=== PATIENT | male | born 1945 | race Caucasian/White ===

== ENCOUNTER 2016-11-22 15:26 | Observation (INO) | payer MEDICARE ==
[2016-11-22] MEDS ORDERED: Aspirin Low Dose CHEW TAB* 81 MG PO ONE (15:41)
[2016-11-22] MEDS ORDERED: Nitroglycerin TAB 0.4 MG* 0.4 MG TAB SL ONE (15:55)
[2016-11-22 16:33] LABS: Hematocrit 43 % (42-52); Hemoglobin 14.7 g/dl (14.0-18.0); Mean Corpuscular HGB Conc 34 g/dl (31-36); Mean Corpuscular Hemoglobin 26 pg (27-31); Mean Corpuscular Volume 76 fL (80-94); Mean Platelet Volume 8 um3 (7.4-10.4); Red Blood Count 5.67 10^6/ul (4.0-5.4); Red Cell Distribution Width 15 % (10.5-15); White Blood Count 10.4 10^3/ul (3.5-10.8)
--- NOTE | 2016-11-22 16:33 | RAD ---
HISTORY: Chest pain COMPARISONS: July 24, 2016 VIEWS:1: Single frontal portable view of the chest at 4:24 PM FINDINGS: LINES AND TUBES: A left-sided pacemaker is noted CARDIOMEDIASTINAL SILHOUETTE: The cardiomediastinal silhouette is normal for portable technique. PLEURA: The costophrenic angles are sharp. No pleural abnormalities are noted. LUNG PARENCHYMA: The lungs are clear. ABDOMEN: The upper abdomen is clear. There is no subphrenic gas. BONES AND SOFT TISSUES: No bone or soft tissue abnormalities are noted. IMPRESSION: NO ACTIVE CARDIOPULMONARY DISEASE.
[2016-11-22 16:48] LABS: Troponin I 0.01 ng/mL (<0.04)
[2016-11-22] MEDS ORDERED: NS 0.9% 1000 ML* 500 ML IV ONE (17:04)
[2016-11-22 17:18] LABS: Albumin 3.7 g/dL (3.2-5.2); BUN/Creatinine Ratio 23.9 (8-20); Calcium 10.3 mg/dL (8.6-10.3); EGFR African American 81.8 (>60); EGFR Non-African American 63.6 (>60); Globulin 3.6 g/dL (2-4); Potassium 4.1 mmol/L (3.5-5.0); Total Bilirubin 0.7 mg/dL (0.2-1.0); Total Protein 7.3 g/dL (6.4-8.9)
[2016-11-22] MEDS ORDERED: Albuterol/Ipratropium NEB.SOL* Albuterol 2.5 MG/Ipratropium 0.5 MG 3 ML INH PRN (18:50)
[2016-11-22] MEDS ORDERED: Acetaminophen TAB* 325 MG PO PRN (18:51)
[2016-11-22] MEDS ORDERED: Ondansetron INJ* 2 MG/ML VIAL IV PRN (18:51)
--- NOTE | 2016-11-22 21:37 | HP ---
ADMISSION HISTORY AND PHYSICAL: DATE OF ADMISSION: 11/22/16 PRIMARY CARE PROVIDER: Dr. Aakash Alonso. COMMERCIAL FLOOR COVERING INSTALLER: Dr. Stone. HEALTHCARE PROXY: and daughter. CODE STATUS: Full. SOURCE OF HISTORY: History obtained from interview of the patient, review of past medical records. RELIABILITY: The patient is poor to moderate. Records are excellent. CHIEF COMPLAINT: Chest discomfort. HISTORY OF PRESENT ILLNESS: This is a 71-year-old man with a past medical history of CAD, status post PCI with stent to the proximal LAD in 2010 and in- stent restenosis in 2013, who had been in his usual state of health until today , it start around 1 p.m., started to feel a burning like pressure in his chest while at home. Laid down and put on oxygen; however, was no help. So, he decided to proceed to the emergency room. He did not take sublingual nitro or aspirin. He notes the pain lasted about 2-1/2 hours and was resolved prior to presenting to the emergency room. The pain was nonradiating, described as a burning and pressure without associated shortness of breath, lightheadedness, palpitations. He notes that going up and down the stairs and walking to the car did not exacerbate the discomfort. He did notice that he was nauseous and vomiting one time this morning, which was atypical for him. He denies any recent fevers or chills, but does endorse loose stools for the last 3 days as well as a recent cough with increased phlegm production which has began to turn yellow from clear. He has not increased his use of home inhalers, although does feel like he is wheezing. In the emergency room, he was noted to be chest pain free; however, given his significant history of CAD, hospitalist service was consulted for admission. PAST MEDICAL HISTORY: Paroxysmal atrial fibrillation, diastolic heart failure, iron deficiency anemia, CAD, status post stents to the proximal LAD in 2010, in - stent restenosis in 2013, tachy-georgina syndrome status post permanent pacemaker , hypertension, COPD, history of GI bleed, BPH, type 2 diabetes, obstructive sleep apnea, noncompliant with CPAP, sleeps with 2 L of oxygen at night. MEDICATIONS: Reviewed from __[facility] records___. The patient does not have a current list, so I am asking his to bring it in, includes: 1. Atorvastatin 60 mg daily. 2. Ellipta 62.5 mcg daily. 3. Diltiazem 240 mg ER daily. 4. Valsartan 160 mg daily. 5. Spiriva 2 puffs daily. 6. Symbicort 80/4.5 mcg 2 puffs daily. 7. Eplerenone 25 mg daily. 8. Nitroglycerin patch 2 mg patch every day. 9. Centrum Silver 1 tab daily. 10. Ferrous sulfate 325 mg daily. 11. Magnesium oxide 400 mg daily. 12. Finasteride 5 mg daily. 13. Aspirin 81 mg daily. 14. Calcium 600/800 mg daily. ALLERGIES: To BUPROPION, MORPHINE and PENICILLIN. FAMILY HISTORY: Father from [place] at 65. Mother with lung cancer. SOCIAL HISTORY: Extensive tobacco 1.5 packs per day for 40 years, quit in 2007 , rare alcohol, no illicits. REVIEW OF SYSTEMS: As per HPI, otherwise all other systems negative. PHYSICAL EXAMINATION GENERAL: Older than stated age, lying flat and bed, interactive, pleasant, in no apparent distress, talks in complete sentences. VITAL SIGNS: When seen by this author, 115/74, heart rate 65, respiratory rate of 16, 93% on room air, T-max 97.8. HEENT: Oropharynx is clear. He has moist mucous membranes. Sclerae anicteric. NECK: He has a non-elevated JVD. No cervical or supraclavicular lymphadenopathy. No goiter. No carotid bruits. LUNGS: He has bibasilar rales with few expiratory wheezes in all lung hubbard. HEART: He has a regular rate and rhythm. Distant heart sounds. Difficult to appreciate any murmurs. ABDOMEN: Soft, nontender, nondistended. EXTREMITIES: Warm, well-perfused with trace lower extremity edema. Less than 2 - second cap refill. Good skin turgor. NEURO: A and O x3. CN II through XII intact. PSYCH: No apparent agitation, anxiety, or depression. DIAGNOSTIC STUDIES/LAB DATA: Labs reviewed, notable for white count 10.4, hemoglobin 14.7, platelets 238, BUN 27, creatinine 1.13, glucose 141, lactic acid 1.5. Troponin I 0.01. BNP 59. Data reviewed. EKG: Normal sinus rhythm, borderline right axis, right bundle branch block. No ST or T wave changes. Chest x-ray. Impression: No active cardiopulmonary disease. ASSESSMENT AND PLAN: This is a 71-year-old man, past medical history of coronary artery disease, diastolic heart failure, not on diuretics, tachy-georgina syndrome, on permanent pacemaker, hypertension, chronic obstructive pulmonary disease, diabetes, obstructive sleep apnea, noncompliant with CPAP, presenting to the hospital with 2 hours of burning chest pressure associated with recent cough, increased phlegm production and change in phlegm color as well as one episode of vomiting this morning, all resolved prior to presentation. 1. Chest pain. Atypical in nature given lack of exacerbation with exertion. Does have significant cardiac history. We will admit to telemetry, trend serial troponins. Repeat EKG with third troponin. Continue aspirin or other cardiac medications. I think this is likely in the setting of a chronic obstructive pulmonary exacerbation as indicated by increased wheeze, increased phlegm and change in color of his phlegm. I will leave him n.p.o. at midnight should any other troponins or EKGs be remarkable and would he therefore benefit from a stress test in the morning. 2. Chronic obstructive pulmonary disease, in acute exacerbation. Start methylprednisolone IV 40 mg, q.12 hours. Continue Dulera as well as DuoNebs p.r.n. Tiotropium and montelukast. Monitor for resolution on 2 L of oxygen at night as he takes at home. 3. Diabetes. No known hemoglobin A1c. Not on any medications. Added onto the ED labs. 4. High blood pressure. Continue eplerenone and valsartan. 5. Benign prostatic hyperplasia. Continue finasteride. 6. Obstructive sleep apnea. Noncompliant with CPAP. Not instituted here. 7. DVT prophylaxis. Heparin subcu. CC: Dr. Aakash Alonso; Dr. Stone * [id number]/[facility] #: [id number] [facility]
[2016-11-22] MEDS: Ferrous Sulfate TAB* 325 MG PO SCH (22:22)
[2016-11-22] MEDS: Heparin VIAL(*) 5000 UNITS/ML VIAL (FIVE THOUSAND) SUBCUT SCH (22:22)
[2016-11-22] MEDS: methylPREDNISolone SOD 40 MG* 1 ML VIAL IV SCH (22:23)
--- NOTE | 2016-11-22 23:15 | ED ---
Ezequiel Hewitt Michael, scribed for Billy Eduardo MD on 11/22/16 at 1616 . HPI Chest Pain - HPI Summary HPI Summary: 71 y/o male comes to the ED presenting with constant chest pain that started at 1300 after walking up the stairs. The pt reports that he could not sleep due to the pain, and by 1400 the pain radiated to his LUE. Since arriving to the ED, the chest pain has spontaneously alleviated, but the LUE pain is still present. He also c/o SOB and a productive cough with yellow sputum. The PMHx is significant for COPD and UT 2-3 years ago with resulting in 2 stents and pacemaker. - History of Current Complaint Chief Complaint: EDChestPainROMI Time Seen by Provider: 11/22/16 15:41 Hx Obtained From: Patient, Medical Records Onset/Duration: Started Hours Ago Timing: Constant Initial Severity: Moderate Current Severity: Mild Pain Intensity: 5 Pain Scale Used: 0-10 Numeric Chest Pain Location: Discrete at: - sub sternal Chest Pain Radiates: Yes Chest Pain Radiates To:: Arm - LUE Alleviating Factor(s): Spontaneous Resolution Associated Signs and Symptoms: Positive: Chest Pain, Shortness of Breath, Productive Cough, Other: - LUE pain. - Allergy/Home Medications Allergies/Adverse Reactions: Allergies Allergy/AdvReac Type Severity Reaction Status Date / Time Bupropion [From Wellbutrin] Allergy Intermediate Dizziness Verified 03/27/15 15: 59 Morphine Allergy Intermediate See Comment Verified 03/27/15 15:59 Penicillins Allergy Intermediate Swelling Verified 03/27/15 15:59 Home Medications: Home Medications Atorvastatin* [Lipitor*] 20 mg PO DAILY 11/22/16 [History Confirmed 11/22/16] Budesonide/Formote 80/4.5(NF) [Symbicort 80/4.5 (NF)] 2 puff INH BID 11/22/16 [ History Confirmed 11/22/16] Diltiazem HCl Extended Release [Diltiazem HCl ER] 120 mg PO BID 11/22/16 [ History Confirmed 11/22/16] Epleronone (NF) [Inspra (NF)] 25 mg PO DAILY 11/22/16 [History Confirmed ] Finasteride TAB* [Proscar TAB*] 5 mg PO DAILY 11/22/16 [History Confirmed ] Nitroglycerin 0.2 MG/HR PATCH* [Nitroglycerin 5 MG PATCH*] 1 patch TRANSDERM DAILY 11/22/16 [History Confirmed 11/22/16] Valsartan TAB* [Diovan TAB*] 160 mg PO DAILY 11/22/16 [History Confirmed ] PMH/Surg Hx/FS Hx/Imm Hx Endocrine/Hematology History: Reports: Hx Anticoagulant Therapy, Hx Diabetes, Hx Anemia Cardiovascular History: Reports: Hx Angina, Hx Angioplasty, Hx Coronary Artery Disease, Hx Hypercholesterolemia, Hx Hypertension, Hx Myocardial Infarction - PT STATES, Hx Pacemaker/ICD - 5/15, Other Cardiovascular Problems/Disorders - cardiac stent 2012 Denies: Hx Congestive Heart Failure, Hx Deep Vein Thrombosis Respiratory History: Reports: Hx Chronic Obstructive Pulmonary Disease (COPD), Other Respiratory Problems/Disorders - 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 Denies: Hx Asthma GI History: Reports: Hx Diverticulosis, Hx Gastroesophageal Reflux Disease, Hx Gastrointestinal Bleed, Hx Obstructive Bowel - twisted bowel that required surgery 1996 History: Reports: Hx Benign Prostatic Hyperplasia Sensory History: Reports: Hx Contacts or Glasses Opthamlomology History: Reports: Hx Contacts or Glasses Neurological History: Reports: Hx Headaches Psychiatric History: Reports: Hx Anxiety - Cancer History Cancer Type, Location and Year: "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 Left lung removal of mass. 1 cardiac stent in 2010 Hx Anesthesia Reactions: No Infectious Disease History: No Infectious Disease History: Denies: Traveled Outside the [place] in Last 30 Days - Family History Known Family History: Negative: Cardiac Disease - Social History Occupation: Retired Lives: With Family Alcohol Use: None Substance Use Type: Reports: None Hx Tobacco Use: Yes Smoking Status (MU): Former Smoker Review of Systems Negative: Fever, Chills Negative: Erythema Negative: Sore Throat Positive: Chest Pain Positive: Shortness Of Breath, Cough Negative: Abdominal Pain, Vomiting, Nausea Negative: dysuria, hematuria Positive: Other - LUE pain. Negative: Myalgia, Edema - bilat LE Negative: Rash Neurological: Negative - dizziness All Other Systems Reviewed And Are Negative: Yes Physical Exam - Summary Physical Exam Summary: Constitutional: Well-developed, Well-nourished, Alert. (-) Distressed Skin: Warm, Dry HENT: Normocephalic; Atraumatic Eyes: Conjunctiva normal Neck: Musculoskeletal ROM normal neck. (-) JVD, (-) Stridor, (-) Tracheal deviation Cardio: Rhythm regular, rate normal, Heart sounds normal; Intact distal pulses; The pedal pulses are 2+ and symmetric. Radial pulses are 2+ and symmetric. (-) Murmur Pulmonary/Chest wall: diminished lung sounds. faint rhonchi bilaterally. (-) Wheezes, (-) Rales Abd: Soft, (-) Tenderness, ~(-) Distension, (-) Guarding, (-) Rebound Musculoskeletal: (-) Edema Lymph: (-) Cervical adenopathy Neuro: Alert, Oriented x3 Psych: Mood and affect Normal Triage Information Reviewed: Yes Vital Signs On Initial Exam: Initial Vitals Temp Pulse Resp BP Pulse Ox 97.8 F 84 16 115/74 96 11/22/16 15:33 11/22/16 15:33 11/22/16 15:33 11/22/16 15:33 11/22/16 15:33 Vital Signs Reviewed: Yes Diagnostics - Vital Signs Vital Signs Temp Pulse Resp BP Pulse Ox 11/22/16 15:33 97.8 F 84 16 115/74 96 - Laboratory Result Diagrams: 11/22/16 16:12 11/22/16 16:12 Lab Statement: Any lab studies that have been ordered have been reviewed, and results considered in the medical decision making process. - Radiology CXR Xray Interpretation: No Acute Changes Radiology Interpretation Completed By: Radiologist - EKG EK EKG Rhythm: Sinus Rhythm - 89 bpm EKG Interpretation: RBBB. Q-waves V1 V2. No STEMI EK EKG Comparison: No Significant Change - from EKG 11/22/16 Chest Pain Course/Dx - Course Course Of Treatment: 71 y/o male comes to the ED presenting with constant chest pain. He also presents SOB and productive cough. The CXR was nml. The first and repeat EKG were significant for RBBB and Q-waves V1 and V2. Dr. Anderson ( Hospitalist)-[id number] was consulted and accepts pt as an admission. Dx with unspecified chest pain-possible angina. - Diagnoses Provider Diagnoses: Chest pain, unspecified Discharge - Discharge Plan Condition: Stable Disposition: ADMITTED TO [facility] Discharge Disposition Comment: Dr. Anderson (Hospitalist)-[id number] was consulted and accepts pt as an admission. Referrals: Aakash Alonso MD [Primary Care Provider] - The documentation as recorded by the Ezequiel russ Michael accurately reflects the service I personally performed and the decisions made by me, Billy Eduardo MD.
[2016-11-23] MEDS: Mometasone/Formoter 100/5 MDI INH SCH ×3 (02:35→19:15)
[2016-11-23] MEDS: Heparin VIAL(*) 5000 UNITS/ML VIAL (FIVE THOUSAND) SUBCUT SCH ×2 (05:39→14:07)
[2016-11-23 06:04] LABS: Hematocrit 45 % (42-52); Hemoglobin 15.4 g/dl (14.0-18.0); Mean Corpuscular HGB Conc 34 g/dl (31-36); Mean Corpuscular Hemoglobin 26 pg (27-31); Mean Corpuscular Volume 76 fL (80-94); Mean Platelet Volume 8 um3 (7.4-10.4); Red Blood Count 5.97 10^6/ul (4.0-5.4); Red Cell Distribution Width 15 % (10.5-15)
[2016-11-23 06:23] LABS: BUN/Creatinine Ratio 26.7 (8-20); Calcium 9.8 mg/dL (8.6-10.3); EGFR Non-African American 69.2 (>60); Potassium 4.6 mmol/L (3.5-5.0)
[2016-11-23] MEDS ORDERED: Aspirin EC Low Dose* 81 MG TAB.EC PO SCH (09:00)
[2016-11-23] MEDS ORDERED: Spironolactone TAB* 25 MG PO SCH (09:00)
[2016-11-23] MEDS ORDERED: Omeprazole CAP* 20 MG PO SCH (09:00)
[2016-11-23] MEDS ORDERED: Diltiazem CD CAP* 240 MG PO SCH (09:00)
[2016-11-23] MEDS ORDERED: Spiriva Inhaler DEVICE* 1 EACH DEVICE INH ONE (09:00)
[2016-11-23] MEDS ORDERED: Valsartan TAB* 160 MG PO SCH (09:00)
[2016-11-23] MEDS ORDERED: Montelukast Sodium TAB* 10 MG PO SCH (09:00)
[2016-11-23] MEDS ORDERED: Nitroglycerin 0.2 MG/HR PATCH* (5 MG) TRANSDERM SCH (09:00)
[2016-11-23] MEDS ORDERED: Finasteride TAB* 5 MG PO SCH (09:00)
[2016-11-23] MEDS ORDERED: Tiotropium CAP.INH* CAP.INH/18 MCG (USE ORDER SET !) INH SCH (09:00)
[2016-11-23] MEDS ORDERED: Atorvastatin* 20 MG TAB PO SCH (09:00)
[2016-11-23] MEDS ORDERED: Regadenoson* 0.4 MG/5 ML SYRINGE ONE (11:57)
--- NOTE | 2016-11-23 13:05 | RAD ---
HISTORY: Chest pain, shortness of breath, previous [place], cardiac catheterization, hypertension, family history of heart disease COMPARISONS: August 19, 2013 TECHNIQUE: A 1 day stress/rest myocardial perfusion study was performed, with pharmacologic stress. The stress portion was monitored by Dr. Gutierrez. Gated SPECT imaging was performed, with CT-based attenuation correction DOSE: Stress: Technetium 99m tetrofosmin, 26.23 millicuries, injected at 11:40 AM on November 23, 2016 Rest: Technetium 99m tetrofosmin, 10.91 millicuries, injected at 9:30 AM on November 23, 2016 Pharmacologic agent: Lexiscan FINDINGS: CARDIAC MONITORING: No EKG criteria of ischemia with stress. EF: 62 % TID: 1.05 MOTION: Normal motion, with normal wall thickening. PERFUSION: There is a small relatively fixed defect of the septum towards the apex, with minimal marginal reversibility which may reflect marginal ischemia. OTHER: None IMPRESSION: FIXED PERFUSION DEFECT OF THE SEPTUM TOWARDS THE APEX WITH MINIMAL MARGINAL REVERSIBILITY SUGGESTIVE OF MARGINAL ISCHEMIA. ASSESSMENT: LOW RISK. Based on imaging criteria from ACC/AHA 2002. Guideline Update for the Management of Patient's with Chronic Stable Angina, table 23. Noninvasive Risk Stratification.
[2016-11-23] MEDS: Ferrous Sulfate TAB* 325 MG PO SCH (14:02)
[2016-11-23] MEDS: methylPREDNISolone SOD 40 MG* 1 ML VIAL IV SCH (14:03)
[2016-11-23 17:19] VITALS: BP 182/71
[2016-11-23] MEDS ORDERED: Nitro Patch/OINT Remove PATCH OFF SCH (21:00)
--- NOTE | 2016-11-24 00:52 | DS ---
CC: Dr. Alonso; Dr. Stone DISCHARGE SUMMARY: DATE OF ADMISSION: 11/22/16 DATE OF DISCHARGE: 11/23/16 PRIMARY CARE PROVIDER: Dr. Alonso. DISCHARGE DIAGNOSES: 1. Chest pain. 2. Chronic obstructive pulmonary disease exacerbation. SECONDARY DIAGNOSES: 1. History of paroxysmal atrial fibrillation, not on anticoagulation due to history of GI bleed. 2. History of diastolic congestive heart failure. 3. Iron deficiency anemia. 4. Coronary artery disease, status post stenting and in-stent restenosis. 5. Tachy-georgina syndrome, status post pacemaker. 6. Hypertension. 7. Chronic obstructive pulmonary disease, on oxygen at night only. 8. History of GI bleed. 9. Benign prostatic hypertrophy. 10. Diabetes type 2. 11. Obstructive sleep apnea, not tolerating CPAP. MEDICATIONS AT DISCHARGE: Include: 1. Aspirin 81 mg daily. 2. Lipitor 20 mg daily. 3. Symbicort 80/4.5 two puffs inhalation b.i.d. 4. Diltiazem extended release 120 mg b.i.d. 5. Inspra 25 mg daily. 6. Ferrous sulfate 325 mg b.i.d. 7. Proscar 5 mg daily. 8. Singulair 10 mg daily. 9. Nitroglycerin patch 0.2 mg per hour transdermally daily. 10. Omeprazole 20 mg daily. 11. Nitroglycerin tablet 0.4 mg sublingually every 5 minutes p.r.n. chest pain. 12. Valsartan 160 mg daily. 13. Prednisone 50 mg for 4 days total. LABORATORY DATA AND STUDIES PERFORMED DURING THE HOSPITAL STAY: Included: On 11/23/16, white blood cell count of 6.0, hemoglobin of 15.4, hematocrit of 45 and platelets of 217. Sodium was 134, potassium 4.6, chloride 104, carbon dioxide 26, BUN 28, creatinine 1.05. Liver function tests were unremarkable on admission. Triglycerides of 53, cholesterol total of 108, LDL of 58, and HDL of 39. Nuclear medicine cardiac test was obtained on 11/23/16, impression: Fixed perfusion defect towards the apex with marginal reversibility suggestive of marginal ischemia." The EF was noted to be 62%. The test was assessed as "low risk." HOSPITALIZATION COURSE: Mr. Bautista is a 71-year-old male with a history of COPD who also has extensive cardiac history who presented complaining with no specific chest pain. It appeared to be post exertion. The patient stated that he climbed a flight of stairs and then he started experiencing chest pain. He laid down and he felt like "his heart fluttered." He came to the ED for evaluation. The patient was placed on observation. His troponin was 0.01 and then two measurements of 0.03. The patient experienced no more chest pain. He was in a paced rhythm throughout his hospital stay. He was diagnosed with COPD exacerbation at admission and placed on prednisone. At discharge, the patient feels at baseline. He did state that he in the past would have occasional chest pain with exertion. He is on chronic nitroglycerin transdermally as per Dr. Stone. His cardiac stress test showed area of old ischemia with very small reversibility. At this point, the stroke was assessed as low risk. The patient is going to be discharged home with a short course of prednisone. PHYSICAL EXAMINATION: At the time of discharge, blood pressure of 133/86, heart rate of 60 and regular, respiratory rate 18, oxygen saturation 92% on room air, temperature 97.6. General: The patient is a very pleasant 71-year- old male who is in no acute distress. Alert, awake and oriented x3. HEENT: Head atraumatic, normocephalic. Eyes: Extraocular muscles are intact and equal bilaterally. Oropharynx: Clear. Mucosa moist. Neck: Supple. No JVD. No bruit bilaterally. Respiratory: Distant breath sounds bilaterally with coarse and dry crackles at bilateral bases. Cardiovascular: Regular rate and rhythm. No murmur. Abdomen: Soft, nontender. Bowel sounds present in all 4 quadrants. Extremities: There is no edema. Pulses +2 bilaterally. There is no clubbing or cyanosis. Neurologically, the patient is intact. Cranial nerves II through XII grossly intact. Speech clear. Motor strength is 5/5 bilaterally. Please note that this is a short summary of the patient's hospital stay. Please refer to further medical record for details. At discharge, the patient is recommended to follow up with his primary care provider, Dr. Alonso, and our office is in the process of scheduling appointment. [id number]/[facility] [place]: [id number] [place]
== END 2016-11-23 20:05 | disposition home or self-care (01) ==
LOC: ED 15:26 → MEDTELE 18:51 → OBSVTOIN 18:51 → INTOOBSV 18:51
PROVIDERS: ADMIT Internal Medicine; ATTEND Internal Medicine
DX: R07.9 Chest pain, unspecified (principal); J44.1 Chronic obstructive pulmonary disease with (acute) exacerbation; I48.0 Paroxysmal atrial fibrillation; I11.0 Hypertensive heart disease with heart failure; I50.30 Unspecified diastolic (congestive) heart failure; E11.9 Type 2 diabetes mellitus without complications; I25.10 Atherosclerotic heart disease of native coronary artery without angina pectoris; Z95.5 Presence of coronary angioplasty implant and graft; N40.0 Benign prostatic hyperplasia without lower urinary tract symptoms; G47.33 Obstructive sleep apnea (adult) (pediatric); Z79.82 Long term (current) use of aspirin; Z79.899 Other long term (current) drug therapy; Z88.0 Allergy status to penicillin; Z88.5 Allergy status to narcotic agent; Z88.8 Allergy status to other drugs, medicaments and biological substances; Z87.891 Personal history of nicotine dependence; I45.10 Unspecified right bundle-branch block; I49.1 Atrial premature depolarization
CPT/HCPCS: 36415; 71010; 78452; 80048; 80053; 80061; 83036; 83605; 83880; 84484; 85025; 93005; 93017; 96361; 96372; 96374; 99284; A9270-GY; A9502; G0378; J1644; J2785; J2920

== ENCOUNTER 2016-11-28 11:28 | Inpatient (IN) | payer MEDICARE, OTHER ==
[2016-11-28] MEDS ORDERED: Aspirin Low Dose CHEW TAB* 81 MG PO ONE (11:55)
[2016-11-28 12:05] LABS: Hematocrit 46 % (42-52); Hemoglobin 15.5 g/dl (14.0-18.0); Mean Corpuscular HGB Conc 34 g/dl (31-36); Mean Corpuscular Hemoglobin 26 pg (27-31); Mean Corpuscular Volume 76 fL (80-94); Mean Platelet Volume 8 um3 (7.4-10.4); Red Blood Count 6.03 10^6/ul (4.0-5.4); Red Cell Distribution Width 15 % (10.5-15); White Blood Count 16.3 10^3/ul (3.5-10.8)
[2016-11-28] MEDS ORDERED: Nitroglycerin 0.4 MG/HR PATCH* (10 MG) TRANSDERM ONE (12:12)
--- NOTE | 2016-11-28 12:13 | RAD ---
INDICATION: Chest pain COMPARISON: November 22, 2016 TECHNIQUE: An AP portable view obtained at 1205 hours is submitted. FINDINGS: Bones/Soft Tissues: There are no acute bony findings. There is a dual-chamber left-sided cardiac pacemaker, unchanged Cardiomediastinal: The cardiomediastinal silhouette is normal. Lungs: There are no infiltrates. Pleura: There are no pleural effusions. Other: None IMPRESSION: NO ACTIVE DISEASE.
[2016-11-28 12:17] LABS: Albumin 3.8 g/dL (3.2-5.2); BUN/Creatinine Ratio 30.5 (8-20); Calcium 10.5 mg/dL (8.6-10.3); EGFR Non-African American 69.2 (>60); Globulin 3.2 g/dL (2-4); Potassium 3.8 mmol/L (3.5-5.0); Total Bilirubin 0.7 mg/dL (0.2-1.0)
[2016-11-28 12:21] LABS: Troponin I 0.05 ng/mL (<0.04)
[2016-11-28] MEDS: Enoxaparin(*) 80 MG/0.8 ML SYR SUBCUT SCH (13:55)
[2016-11-28] MEDS ORDERED: Diltiazem TAB* 30 MG PO ONE (13:56)
[2016-11-28 15:47] LABS: Troponin I 0.06 ng/mL (<0.04)
[2016-11-28] MEDS ORDERED: Ondansetron INJ* 2 MG/ML VIAL IV PRN (16:01)
[2016-11-28] MEDS ORDERED: Acetaminophen TAB* 325 MG PO PRN (16:01)
[2016-11-28] MEDS ORDERED: Nitroglycerin TAB 0.4 MG* 0.4 MG TAB SL PRN (16:05)
[2016-11-28] MEDS: Diltiazem TAB* 30 MG PO SCH (18:37)
[2016-11-28] MEDS: methylPREDNISolone SOD 40 MG* 1 ML VIAL IV SCH (18:37)
[2016-11-28 18:43] LABS: Troponin I 0.05 ng/mL (<0.04)
--- NOTE | 2016-11-28 18:43 | CONS ---
CC: Dr. Aakash Alonso, [facility]; Dr. Yayo Stone CONSULTATION REPORT: DATE OF CONSULT: 11/28/16 REASON FOR CONSULT: Elevated troponins and chest pain. CHIEF COMPLAINT: Chest pain, diaphoresis, and shortness of breath. HISTORY OF PRESENT ILLNESS: Mr. Bautista is a 71-year-old gentleman followed by my partner, Dr. aKrlos Stone, for atherosclerotic heart disease and paroxysmal atrial fibrillation and also followed by Dr. Yadav for significant COPD. The patient was in the emergency department on November 22 with chest pain, he was admitted under o bservation, ruled out for myocardial infarction and chemical nuclear stress test was interpreted as low risk. The patient was started on steroids for COPD exacerbation and coughing and admits that hi s cough did get better. The patient did well until last night when he developed acute onset of tala phoresis and chest pain. It is hard to tell if this is before he went to sleep or woke him from sle ep, but he had trouble sleeping. At some point, he thought it would might be an atrial fibrillation due to palpitations, but his history is vague. He states he has taken all his medications regularl y including his steroids. He uses nasal cannula oxygen at night (intolerant of CPAP, so stopped). Presenting to the emergency room here today, he was treated with nitroglycerin and is pain free curr ently. In the emergency department, the patient's ECG revealed he was in atrial fibrillation with rapid monique tricular rate and inverted T waves, the AFib, tachycardia, and T-wave changes are all new compared t o the ECG of November 22, earlier this week. PAST MEDICAL HISTORY: Paroxysmal atrial fibrillation, on dronedarone, the patient declined anticoag ulation due to hemorrhoidal bleeding per Dr. Stone's note. He has known atherosclerotic heart dise ase, 2010, proximal LAD stented and he is on medical management for 60% to 70% occlusion in an OM-2 branch and a 50% to 55% occlusion in the right coronary artery. He underwent stenting in 2012 for s evere stenosis of his proximal stent, and his OM and RCA disease was stable. He has severe COPD, ox ygen dependent, frequently on steroids; dyslipidemia; hypertension; reflux; diverticulosis; benign p rostatic hypertrophy; syncope, 2011; SVT with pacemaker implantation, 2013 ([employer] MRI compatible ); history of diastolic congestive heart failure; iron deficiency anemia; history of GI bleed; type 2 diabetes; obstructive sleep apnea, unable to tolerate CPAP. MEDICATIONS: The patient's medications on discharge, 11/23/16, include: 1. Aspirin 81 mg a day. 2. Lipitor 20 mg a day. 3. Symbicort 80/4.5 two puffs b.i.d. 4. Diltiazem ER 120 mg b.i.d. 5. Inspra 25 mg a day. 6. Iron sulfate 325 mg b.i.d. 7. Proscar 5 mg a day. 8. Singulair 10 mg a day. 9. Nitroglycerin patch 0.2 mg daily. 10. Omeprazole 20 mg a day. 11. Sublingual nitroglycerin p.r.n. 12. Valsartan 160 mg a day. 13. Prednisone taper starting at 50 mg a day to be tapered over 4 days. Of note, on the [facility], he was additionally documented to be on eplerenone 25 mg a day, metoprolol tartr ate 25 mg b.i.d., as well as MultiVites. Per the patient, he states he is taking what is on the [facility] list, but it is difficult to verify. ALLERGIES: He is allergic or intolerant to WELLBUTRIN, MORPHINE, and PENICILLIN. FAMILY HISTORY: Significant in his father of a heart attack at age 65, his mother had a histor y of lung cancer. SOCIAL HISTORY: The patient smoked a pack and a half a day for 40 years, quit in 2007. No history of alcohol or recreational drug abuse. He lives with his , who is present in the room with him and is supportive. The patient is retired. PHYSICAL EXAM: The patient is an elderly gentleman, lying at 40 degrees, appears comfortable with 2 L oxygen nasal cannula on. We do not have weights today on him. In April of 2015, he was 5 feet 11 inches and weight 174 pounds. Blood pressure currently 121/83, his pulse is 111, temperature 97.6, oxygen saturation 97% on 2 L nasal cannula. HEENT: Pupils are equal and round. Mucous membranes m oderately moist. Tongue midline. Neck without appreciable or increased JVP. Breath sounds are dif fuse, tight, wheezing and diminished air movement throughout the posterior lung hubbard. Faint wheez ing heard anteriorly as well. Coronary: S1, S2, irregularly irregular, tachycardic, without murmur s appreciated. Abdomen: Active bowel sounds. No epigastric discomfort. Soft, nontender, no hepat osplenomegaly or masses. Lower extremities are warm and did not show significant edema. DIAGNOSTIC STUDIES/LAB DATA: A 12-lead ECG today shows atrial fibrillation with ventricular rate of 102 beats a minute to 110 beats a minute. He has a right bundle branch block and inverted T-waves across the precordial leads and flattened T-waves elsewhere. When these EKGs are [facility], the right bundle branch block is old. The AFib is new and the inverted T wa ves are new. Labs: White count 16.3, hemoglobin 15.5, mean cell volume 76, platelets 279. INR 0.98, PTT of 20. Sodium 136, potassium 3.8, chloride 100, bicarb 30, BUN 32, creatinine 1.05, glucose 149. ALT of 1 2. Troponin 0.05. Total cholesterol 108, triglycerides 53, LDL cholesterol 58, HDL cholesterol 39. Studies: Chemical nuclear studies, on 11/23/16, showed a fixed defect in the septum extending to th e apex. Marginal area of reversibility with an ejection fraction of 62%, no evidence of significant inducible ischemia. Chest x-ray today showed no evidence of active disease. Dual-chamber pacemaker leads in place and h e has hyperinflation consistent with his chronic COPD. Echocardiogram: Most recent echocardiogram from 08/03/15 showed an ejection fraction of 65% to 70%, pseudonormal diastolic dysfunction, trace tricuspid insufficiency with mildly restricted mitral migue flets and PA pressure unable to be estimated. IMPRESSION: In summary, Mr. Bautista is a 71-year-old gentleman with known atherosclerotic heart di sease with history of stents and in-stent restenosis who is presenting for the second time in 2017 w ith chest pain. This time with chest pain and diaphoresis and recurrence of atrial fibrillation wit h a borderline elevation in troponin. For the atrial fibrillation, which is new, this could be contributed to by his chronic obstructive p ulmonary disease and/or the newly initiated steroids which can increase fluid retention and atrial s tretch. He has been on dronedarone, but he has a history of mild diffusion impairment and severe ob structive disease and therefore, I would not recommend initiation of amiodarone at this time. I am initiating him on Lovenox to fully anticoagulate him and improve rate control, as he is activel y wheezing, I have elected to add short-acting Cardizem on top of his long acting, which we can titr ate to rate control for now. As we do not know exactly when he went into this, just said he has gotten into it in the last 4 days , and he has a high CHADS score placing him at high stroke risk, he would need MARIBEL-guided cardiovers ion. I will decide on antiarrhythmics or if we are going to change antiarrhythmics at a future point in t formerly [facility]. For now, we can continue him on Multaq, but he may do better with an agent such as propafenone in the future. For the patient's atherosclerotic heart disease, chest pain, diaphoresis, and borderline elevation i n troponin, this could be from the atrial fibrillation and rapid ventricular rate alone with his kno wn atherosclerotic disease and may not in fact represent progression, based on his stress test, this is more suspicious for demand ischemia but he is high risk. For now, I am recommending rate control as above of his atrial fibrillation trying to get his heart rate below 100, ideally in the 60 to 70s. He will need serial troponins and as requested by Dr. Kat, CPKs. We will continue him on his aspirin. I am not sure if he is taking beta blockers an outpatient or not, as the discharge summary list is different than the [facility] list. For now, we can stick with calcium channel blockers until his wheezing improves. I have asked Dr. Randy Shelby, Interventional Cardiology, to review in terms of cardiac catheterizati on or not and he is awaiting additional data i.e., serial troponins and EKGs. His inverted T waves are concerning for acute ischemia but have been seen in the past. Chronic obstructive pulmonary disease. The patient remains tight and wheezy despite additional ster oids on his last recent admission and aggressive pulmonary cocktail. We will leave it to Internal M edicine and/or Pulmonary to determine if additional medications would be of assistance, his elevated white count is new from his earlier admission, but is likely secondary to initiation of steroids as no infiltrates are seen on chest x-ray, his cough is resolved. He does not describe an infectious presentation. We will follow him actively and additional recommendations will be made pending his response to the above management and followup ECG and labs. Further recommendations will be made pending his response to the above. [id number]/[facility] #: [id number]
[2016-11-28] MEDS ORDERED: Diltiazem IV* 5 MG/ML 5 ML VIAL (for loading dose/IV Push) (25 MG) IV SLOW PU ONE (18:58)
--- NOTE | 2016-11-28 19:40 | HP ---
ADMISSION HISTORY AND PHYSICAL: DATE OF ADMISSION: 11/28/16 PRIMARY CARE PROVIDER: Dr. Aakash Alonso. GRE TUTOR: Dr. Stone. HEALTHCARE PROXY: His and his daughter. CODE STATUS: Full. SOURCE OF INFORMATION: History obtained from interview with the patient and review of past medical records. RELIABILITY: From the patient is poor and from the records is excellent. CHIEF COMPLAINT: Sent from Dr. Alonso's office for fast heart rate. HISTORY OF PRESENT ILLNESS: This 71-year-old man, past medical history of CAD with stent to the LAD in 2000, in-stent restenosis 2012, paroxysmal atrial fibrillation who recently was hospitalized from 11/22/16 to 11/23/16 after presenting with chest pain, underwent nuclear stress test, interpreted as low risk with a small area of reversibility and treated for COPD exacerbation. He was discharged home to continue steroids and he noted yesterday after taking his last day of steroids started to notice a fluttering in his chest. The fluttering stopped and it was not associated with chest pain at that time; however, he noticed as he walked around the house, fluttering would return associated with a shallow breathing, although no chest pain. He notes that after his last hospital stay, his cough had improved, although not completely resolved. Last night around 10:30 p.m. after walking up the stairs, he developed a sharp pain and it was similar to the pain that brought him to the hospital last hospital stay, but did not improve when he put on oxygen in his bed. Additionally, he had felt cold sweats. This morning around 7:30 a.m., he felt okay and proceeded to the [place] where he was scheduled for a doctor's visit. His heart rate was noted to be increased and he was sent to [facility]. PAST MEDICAL HISTORY: 1. Paroxysmal atrial fibrillation. 2. Diastolic heart failure. 3. Iron deficiency anemia. 4. CAD, status post stents to proximal LAD in 2010 and in-stent restenosis in 2012. 5. Tachy-georgina syndrome, status post permanent pacemaker. 6. Hypertension. 7. COPD. 8. History of GI bleed. 9. BPH. 10. Diet-controlled diabetes. 11. Obstructive sleep apnea, noncompliant with CPAP, although sleeps with 2 L of oxygen at night. MEDICATIONS: On discharge, 11/23/16: 1. Aspirin 81 mg daily. 2. Lipitor 20 mg daily. 3. Symbicort 80/4.5 two puffs inhaled twice daily. 4. Diltiazem XR 120 mg twice daily. 5. Inspra 25 mg daily. 6. Ferrous sulfate 325 mg twice daily. 7. Proscar 5 mg daily. 8. Singulair 10 mg daily. 9. Nitroglycerin patch 0.2 mg transdermally daily. 10. Omeprazole 20 mg daily. 11. Nitroglycerin sublingual 0.4 mg after 5 minutes as needed for chest pain, up to 3 doses. 12. Valsartan 160 mg daily. 13. Prednisone 50 mg for 4 additional days, last dose was yesterday. ALLERGIES: BUPROPION, MORPHINE, and PENICILLIN. FAMILY HISTORY: Father from MS at age 65. Mother with lung cancer. SOCIAL HISTORY: Smoked tobacco 1.5 pack per year for 40 years, quit in 2007. Rare alcohol. No illicits. Lives with his . REVIEW OF SYSTEMS: As per HPI including sensation of heart fluttering, intermittent chest pain, shallow breathing with walking, cough although improving and sensation of cold sweats. Otherwise, all other systems reviewed and negative. PHYSICAL EXAMINATION GENERAL: Appears stated age, sitting up in the bed, interactive, in no apparent distress. VITAL SIGNS: In the emergency room, 109/71, heart rate when seen by this author 105, breathing at 14 breaths per minute, 94% on 2 L, T-max 97.6. HEENT: Oropharynx is clear. Moist mucous membranes. Sclerae anicteric. NECK: Nonelevated JVD. No supraclavicular or cervical lymphadenopathy. LUNGS: Diffuse end expiratory wheezes with minimal rales in bilateral bases. Chest is tender to palpation over the left precordium. HEART: Rapid heart rate. Irregularly irregular. ABDOMEN: Soft, nontender, nondistended. Positive bowel sounds. EXTREMITIES: Warm and well perfused with trace to 1+ lower extremity edema bilaterally. Less than 2 seconds capillary refill. Good skin turgor. NEUROLOGIC: He is A and O x3. Cranial nerves II through XII are intact. Motor : Sensation and strength is grossly intact. LABORATORY DATA: Reviewed. BUN 32, creatinine 1.05, calcium 10.5. Troponin I of 0.05, increasing to 0.06. INR 0.98. White blood cell count 16.3, 73% neutrophils, hemoglobin 15.5, platelets 279. EKG: Atrial fibrillation, ventricular rate, 102 beats per minute. New T-wave inversions V2 through V6, compared to prior. Chest x-ray, impression: No active cardiopulmonary disease. ASSESSMENT AND PLAN: This is a 71-year-old man, past medical history of coronary artery disease, status post stenting; paroxysmal atrial fibrillation, not on anticoagulation on his last hospital stay; chronic obstructive pulmonary disease with recent exacerbation, treated with steroids, returning with sensation of palpitations as well as tachycardia found with elevated troponin. 1. Elevated troponin: Suspect in the setting of atrial fibrillation and rapid ventricular response, although in the setting of T-wave inversions may represent coronary atherosclerosis. Appreciate cardiac consultation. He has received aspirin, received full dose anticoagulation for atrial fibrillation. We will continue to trend troponins and EKGs. Admit to telemetry OBV. 2. Atrial fibrillation and rapid ventricular response: Likely in the setting of chronic obstructive pulmonary disease exacerbation. Continue Cardizem long acting and add short-acting Cardizem in the setting of uncontrolled rate. Holding beta camilo in the setting of chronic obstructive pulmonary disease exacerbation and diffuse wheezes. Lovenox, full dose. 3. Chronic obstructive pulmonary disease exacerbation: I believe he is not completely resolved from previous hospital stay in the setting of diffuse wheezes. We will restart IV methylprednisolone and continue to monitor. Continue home nebulizers and inhalers as well as montelukast. 4. Benign prostatic hypertrophy: Continue finasteride. 5. Gastroesophageal reflux disease: Continue omeprazole. 6. DVT prophylaxis: Full-dose Lovenox. 7. Code status is full. CC: Dr. Aakash Alonso; Dr. Stone* [id number]/[facility] #: [id number] [facility]
[2016-11-28] MEDS: Ferrous Sulfate TAB* 325 MG PO SCH (20:35)
[2016-11-28] MEDS: Diltiazem CD CAP* 120 MG PO SCH (20:36)
[2016-11-28] MEDS: Mometasone/Formoter 100/5 MDI INH SCH (20:39)
[2016-11-28] MEDS: Nitro Patch/OINT Remove PATCH OFF SCH (20:43)
[2016-11-28] MEDS ORDERED: DILTIAZEM HCL 120 MG PO SCH (21:00)
[2016-11-29] MEDS: Diltiazem TAB* 30 MG PO SCH ×4 (01:06→18:07)
[2016-11-29] MEDS: Enoxaparin(*) 80 MG/0.8 ML SYR SUBCUT SCH ×2 (01:09→13:34)
[2016-11-29 04:57] LABS: Hematocrit 45 % (42-52); Mean Corpuscular HGB Conc 33 g/dl (31-36); Mean Corpuscular Hemoglobin 26 pg (27-31); Mean Corpuscular Volume 77 fL (80-94); Mean Platelet Volume 9 um3 (7.4-10.4); Red Blood Count 5.85 10^6/ul (4.0-5.4); Red Cell Distribution Width 15 % (10.5-15); White Blood Count 7.2 10^3/ul (3.5-10.8)
[2016-11-29 05:08] LABS: BUN/Creatinine Ratio 31.8 (8-20); Calcium 9.6 mg/dL (8.6-10.3); EGFR African American 84.4 (>60); EGFR Non-African American 65.6 (>60); Magnesium 1.9 mg/dL (1.9-2.7); Potassium 4.3 mmol/L (3.5-5.0)
[2016-11-29] MEDS: methylPREDNISolone SOD 40 MG* 1 ML VIAL IV SCH ×2 (05:12→18:07)
[2016-11-29] MEDS ORDERED: Furosemide IV* 10 MG/ML 10 ML VIAL (100 MG) IV ONE (07:39)
--- NOTE | 2016-11-29 07:46 | PN ---
Subjective Date of Service: 11/29/16 Interval History: Notes "tingling" sensation in chest that started after arriving to floor last night. It is sometimes in the base of his neck and then travels to different places in his chest. He feels it is dissimilar to presenting complaints and not associated with other signs and symptoms. Objective Active Medications: Acetaminophen (Tylenol Tab*) 650 mg PO Q6H PRN PRN Reason: PAIN Aspirin (Aspirin Ec Low Dose*) 81 mg PO DAILY [facility] Atorvastatin Calcium (Lipitor*) 20 mg PO DAILY [facility] Diltiazem HCl (Cardizem Tab*) 30 mg PO Q6HR [facility] Last Admin: 11/29/16 05:12 Dose: 30 mg Diltiazem HCl (Cardizem Cd Cap*) 120 mg PO BID [facility] Last Admin: 11/28/16 20:36 Dose: 120 mg Enoxaparin Sodium (Lovenox(*)) 80 mg SUBCUT Q12H [facility] Last Admin: 11/29/16 01:09 Dose: 80 mg Ferrous Sulfate (Ferrous Sulfate Tab*) 325 mg PO BID [facility] Last Admin: 11/28/16 20:35 Dose: 325 mg Finasteride (Proscar Tab*) 5 mg PO DAILY [facility]1983 Methylprednisolone Sodium Succinate (Solu-Medrol*) 40 mg IV Q12H [facility] Last Admin: 11/29/16 05:12 Dose: 40 mg Mometasone Furoate/Formoterol Fumar (Dulera 100/5 Mdi*) 2 puff INH BID [facility] Last Admin: 11/28/16 20:39 Dose: Not Given Montelukast Sodium (Singulair Tab*) 10 mg PO DAILY [facility] Nitroglycerin (Nitroglycerin Tab 0.4 Mg*) 0.4 mg SL Q5M PRN PRN Reason: pain Omeprazole (Prilosec Cap*) 20 mg PO DAILY@0730 [facility] Ondansetron HCl (Zofran Inj*) 4 mg IV Q4H PRN PRN Reason: NAUSEA Pharmacy Profile Note (Nitro Patch/Oint Remove*) 1 note PATCH OFF 2100 [facility] Last Admin: 11/28/16 20:43 Dose: 1 note Vital Signs 11/28/16 11/28/16 11/28/16 16:15 16:30 16:45 Temperature Pulse Rate 88 99 77 Respiratory 20 19 20 Rate Blood Pressure 119/74 124/76 113/74 (mmHg) O2 Sat by Pulse 95 95 96 Oximetry 11/28/16 11/28/16 11/28/16 16:54 17:00 17:38 Temperature 98.2 F 97.4 F 97.4 F Pulse Rate 114 114 Respiratory 18 18 Rate Blood Pressure 102/64 102/64 (mmHg) O2 Sat by Pulse 96 96 Oximetry 11/28/16 11/29/16 11/29/16 19:54 00:04 04:01 Temperature 97.4 F 97.6 F 96.7 F Pulse Rate 105 31 42 Respiratory 16 16 16 Rate Blood Pressure 103/62 116/69 112/73 (mmHg) O2 Sat by Pulse 95 100 100 Oximetry Oxygen Devices in Use Now: None Appearance: NAD Eyes: No Scleral Icterus, PERRLA Ears/Nose/Mouth/Throat: Clear Oropharnyx, Mucous Membranes Moist Neck: NL Appearance and Movements; NL JVP, Trachea Midline Respiratory: Symmetrical Chest Expansion and Respiratory Effort, - - rales in bases, faint wheeze throughout Cardiovascular: NL Sounds; No Murmurs; No JVD, - - IRIR Abdominal: NL Sounds; No Tenderness; No Distention, No Hepatosplenomegaly Extremities: - - 1+ b/l LE edema Skin: No Rash or Ulcers Neurological: Alert and Oriented x 3 Result Diagrams: 11/29/16 04:34 11/29/16 04:34 Assess/Plan/Problems-Billing Assessment: 71 yo M h/o CAD s/p stent to LAD with in stent restenosis, pafib, HTN, COPD, h/ o GIB p/w tachycardia and CP from PCP office found with afib RVR - Patient Problems (1) Atrial fibrillation with RVR Comment: rate controlled with long acting cardizem with short acting in addition Holding beta camilo currently in setting of lung dz full dose lovenox had not been previous anticoagulated 2/2 GIB (2) Acute diastolic CHF (congestive heart failure) Comment: Increased LE edema, elevated BNP. May be contributing to SOB and afib RVR lasix 20mg IV now strict I/O Pt relayed he has been drinking "a lot of water" - placed on 2000cc fluid restriction (3) Chest pain Comment: troponins flat new sensation of tingling in chest check troponin now and repeat EKG to eval for TWI seen on admission which were new cardiology following stress test this month low risk (4) COPD exacerbation Comment: IV steroids home controller medications suspect contributing to afib (5) DVT prophylaxis Comment: full dose AC with lovenox
[2016-11-29] MEDS: Omeprazole CAP* 20 MG PO SCH (08:17)
[2016-11-29] MEDS: Aspirin EC Low Dose* 81 MG TAB.EC PO SCH (08:18)
[2016-11-29] MEDS: Atorvastatin* 20 MG TAB PO SCH (08:18)
[2016-11-29] MEDS: Diltiazem CD CAP* 120 MG PO SCH ×2 (08:19→20:27)
[2016-11-29] MEDS: Ferrous Sulfate TAB* 325 MG PO SCH ×2 (08:19→20:27)
[2016-11-29] MEDS: Montelukast Sodium TAB* 10 MG PO SCH (08:20)
[2016-11-29] MEDS: Finasteride TAB* 5 MG PO SCH (08:20)
[2016-11-29 08:22] LABS: Troponin I 0.04 ng/mL (<0.04)
[2016-11-29] MEDS: Mometasone/Formoter 100/5 MDI INH SCH ×2 (08:38→19:57)
[2016-11-29] MEDS ORDERED: Nitroglycerin 0.2 MG/HR PATCH* (5 MG) TRANSDERM SCH (09:00)
[2016-11-29] MEDS ORDERED: Aspirin EC Low Dose* 81 MG TAB.EC PO SCH (09:00)
[2016-11-29] MEDS ORDERED: Diltiazem IV* 5 MG/ML 5 ML VIAL (for loading dose/IV Push) (25 MG) IV SLOW PU ONE (09:18)
[2016-11-29] MEDS ORDERED: Diltiazem IV* 5 MG/ML 5 ML VIAL (for loading dose/IV Push) (25 MG) IV PUSH ONE (13:00)
[2016-11-29] MEDS: Metoprolol Tartrate TAB* 25 MG PO SCH ×2 (13:34→18:07)
--- NOTE | 2016-11-29 17:18 | PN ---
Subjective Date of Service: 11/29/16 Interval History: f/u Afib beta-camilo added, rate under better control and patient breathing better also receiving copd treatment d/w Dr. Shelby he does not think any further ischemic evaluation is warranted at this time no chest pain Afb rate uncontrolled earlier today now under better control Medications Active Medications: Acetaminophen (Tylenol Tab*) 650 mg PO Q6H PRN PRN Reason: PAIN Aspirin (Aspirin Ec Low Dose*) 81 mg PO DAILY [facility] Last Admin: 11/29/16 08:18 Dose: 81 mg Atorvastatin Calcium (Lipitor*) 20 mg PO DAILY [facility] Last Admin: 11/29/16 08:18 Dose: 20 mg Diltiazem HCl (Cardizem Tab*) 30 mg PO Q6HR [facility] Last Admin: 11/29/16 11:41 Dose: 30 mg Diltiazem HCl (Cardizem Cd Cap*) 120 mg PO BID [facility] Last Admin: 11/29/16 08:19 Dose: 120 mg Enoxaparin Sodium (Lovenox(*)) 80 mg SUBCUT Q12H [facility] Last Admin: 11/29/16 13:34 Dose: 80 mg Ferrous Sulfate (Ferrous Sulfate Tab*) 325 mg PO BID [facility] Last Admin: 11/29/16 08:19 Dose: 325 mg Finasteride (Proscar Tab*) 5 mg PO DAILY [facility] Last Admin: 11/29/16 08:20 Dose: 5 mg Methylprednisolone Sodium Succinate (Solu-Medrol*) 40 mg IV Q12H [facility] Last Admin: 11/29/16 05:12 Dose: 40 mg Metoprolol Tartrate (Lopressor Tab*) 25 mg PO Q6H [facility] Last Admin: 11/29/16 13:34 Dose: 25 mg Mometasone Furoate/Formoterol Fumar (Dulera 100/5 Mdi*) 2 puff INH BID [facility] Last Admin: 11/29/16 08:38 Dose: 2 puff Montelukast Sodium (Singulair Tab*) 10 mg PO DAILY [facility] Last Admin: 11/29/16 08:20 Dose: 10 mg Nitroglycerin (Nitroglycerin Tab 0.4 Mg*) 0.4 mg SL Q5M PRN PRN Reason: pain Omeprazole (Prilosec Cap*) 20 mg PO DAILY@0730 [facility] Last Admin: 11/29/16 08:17 Dose: 20 mg Ondansetron HCl (Zofran Inj*) 4 mg IV Q4H PRN PRN Reason: NAUSEA Pharmacy Profile Note (Nitro Patch/Oint Remove*) 1 note PATCH OFF 2100 [facility] Last Admin: 11/28/16 20:43 Dose: 1 note Objective Vital Signs: Temp Pulse Resp BP Pulse Ox 97.6 F 76 16 119/60 94 11/29/16 15:28 11/29/16 15:28 11/29/16 16:19 11/29/16 15:28 11/29/16 15:28 Oxygen Devices in Use Now: None Appearance: nad, pleasant Neck: NL Appearance and Movements; NL JVP Respiratory: Symmetrical Chest Expansion and Respiratory Effort Cardiovascular: - - irregularly irregular, no signifant murmur, trace edema Abdominal: NL Sounds; No Tenderness; No Distention Extremities: No Clubbing, Cyanosis Skin: No Rash or Ulcers Neurological: Alert and Oriented x 3 Laboratory Results: 11/29/16 04:34 11/29/16 04:34 INR (Anticoag Therapy) 0.98 (0.89-1.11) 11/28/16 11:45 APTT 20.5 seconds (26.0-36.3) L 11/28/16 11:45 Total Bilirubin 0.70 mg/dL (0.2-1.0) 11/28/16 11:45 AST 12 U/L (13-39) L 11/28/16 11:45 ALT 18 U/L (7-52) 11/28/16 11:45 Alkaline Phosphatase 48 U/L (34-104) 11/28/16 11:45 B-Natriuretic Peptide 493 pg/mL (-100) H 11/28/16 11:45 Total Protein 7.0 g/dL (6.4-8.9) 11/28/16 11:45 Albumin 3.8 g/dL (3.2-5.2) 11/28/16 11:45 Globulin 3.2 g/dL (2-4) 11/28/16 11:45 Albumin/Globulin Ratio 1.2 (1-3) 11/28/16 11:45 11/28/16 11/28/16 11/28/16 11:45 15:20 18:10 Troponin I 0.05 H* 0.06 H* 0.05 H* 11/29/16 11/29/16 04:34 04:34 Troponin I 0.03 0.04 H* Diagnostic Imagin, proximal LAD stented and he is on medical management for 60% to 70% occlusion in an OM-2 branch and a 50% to 55% occlusion in the right coronary artery. He underwent stenting in 2012 for severe stenosis of his proximal stent, and his OM and RCA disease was stable. TTE 07/2015: LVEF 65-70%, normal LA size, no significant valvular abnormalities noted, PASP not estimated EKG Data: ekg 11/29/2016: AFib rate 105 bpm, RBBB with non-sepcific ST/T changes improved ST-depresion v4-v6 from 11/28 Assessment/Plan Mr. Bautista is a 71-year-old man with a history of prior tobacco use quit 2007 , CAD s/p PCI, paroxysmal atrial fibrillation had been on beta-camilo and multaq in past they were stopped due to respiratory concerns, prior hemorrhoidal bleeding had declined AC in past, pacemaker COPD, nocturnal oxygen use with recent [facility] [place] visit 11/22/2016 with chest pain found with sinus rhythm, cTnI of 0.03 and nuclear stress test (I reviewed images) was effected by patient motion there was a small fixed inferoseptal defect that may have been artifactual. Patient was started on treatment for COPD exacerbation including steroids. The night before admission developed chest discomfort and palpitations and was found with rapid atrial fibrillation. His troponin was as high as 0.05. There were some new ST/T wave changes in the setting of rapid atrial fibrillation. Case was reviewed with interventionalist Dr. Shelby and he did not feel a cardiac catheterization is warranted at this time. - we discussed anti-coagulation and patient willing take medication. Wenqufahad has lowest risk of GI hemorrhage would start 5 mg PO BID - continue aspirin and statin - continue rate control with beta-camilo and cardizem. Tolerating beta- camilo well from respiratory standpoint - will re-evaluate in AM need for ? MARIBEL/cardioversion after better rate control , he is not going to eat or drink anything for breakfast Thank you for allowing me to participate in the cardiovascular care of this patient. Please do not hesitate to contact me with questions or concerns
[2016-11-29] MEDS: Nitro Patch/OINT Remove PATCH OFF SCH (20:42)
[2016-11-30] MEDS: Diltiazem TAB* 30 MG PO SCH ×2 (00:02→05:48)
[2016-11-30] MEDS: Enoxaparin(*) 80 MG/0.8 ML SYR SUBCUT SCH (01:29)
[2016-11-30] MEDS: Metoprolol Tartrate TAB* 25 MG PO SCH ×2 (01:29→07:42)
[2016-11-30] MEDS: methylPREDNISolone SOD 40 MG* 1 ML VIAL IV SCH (05:49)
[2016-11-30 06:32] LABS: BUN/Creatinine Ratio 39.8 (8-20); Calcium 9.5 mg/dL (8.6-10.3); EGFR African American 102.4 (>60); EGFR Non-African American 79.6 (>60); Magnesium 1.9 mg/dL (1.9-2.7); Potassium 4.5 mmol/L (3.5-5.0)
[2016-11-30] MEDS ORDERED: Furosemide IV* 10 MG/ML 2 ML VIAL (20 MG) IV ONE (07:50)
--- NOTE | 2016-11-30 08:33 | PN ---
Subjective Date of Service: 11/30/16 Interval History: f/u Afib Rate now controlled after adding beta-camilo feels remarkable better denies any palpitations, chest pain or dyspnea ambulated briskly twice around 4S hallways without symptoms, had activity rate responsiveness V-paced felt well tele: AFib rate controlled, intermittent demand v-paced Medications Active Medications: Acetaminophen (Tylenol Tab*) 650 mg PO Q6H PRN PRN Reason: PAIN Apixaban (Eliquis*) 5 mg PO BID [facility] Aspirin (Aspirin Ec Low Dose*) 81 mg PO DAILY [facility] Last Admin: 11/29/16 08:18 Dose: 81 mg Atorvastatin Calcium (Lipitor*) 20 mg PO DAILY [facility] Last Admin: 11/29/16 08:18 Dose: 20 mg Diltiazem HCl (Cardizem Cd Cap*) 240 mg PO DAILY [facility] Ferrous Sulfate (Ferrous Sulfate Tab*) 325 mg PO BID [facility] Last Admin: 11/29/16 20:27 Dose: 325 mg Finasteride (Proscar Tab*) 5 mg PO DAILY [facility] Last Admin: 11/29/16 08:20 Dose: 5 mg Metoprolol Succinate (Toprol Xl Tab*) 50 mg PO BID [facility] Mometasone Furoate/Formoterol Fumar (Dulera 100/5 Mdi*) 2 puff INH BID [facility] Last Admin: 11/29/16 19:57 Dose: Not Given Montelukast Sodium (Singulair Tab*) 10 mg PO DAILY [facility] Last Admin: 11/29/16 08:20 Dose: 10 mg Nitroglycerin (Nitroglycerin Tab 0.4 Mg*) 0.4 mg SL Q5M PRN PRN Reason: pain Omeprazole (Prilosec Cap*) 20 mg PO DAILY@0730 [facility] Last Admin: 11/29/16 08:17 Dose: 20 mg Ondansetron HCl (Zofran Inj*) 4 mg IV Q4H PRN PRN Reason: NAUSEA Pharmacy Profile Note (Nitro Patch/Oint Remove*) 1 note PATCH OFF 2100 [facility] Last Admin: 11/29/16 20:42 Dose: Not Given Prednisone (Deltasone Tab*) 40 mg PO DAILY [facility] Objective Vital Signs: Temp Pulse Resp BP Pulse Ox 98.4 F 69 20 115/71 97 11/30/16 07:56 11/30/16 07:56 11/30/16 07:56 11/30/16 07:56 11/30/16 07:56 Oxygen Devices in Use Now: None Appearance: nad, pleasant Neck: NL Appearance and Movements; NL JVP Respiratory: Symmetrical Chest Expansion and Respiratory Effort Cardiovascular: - - irregularly irregular, no signifant murmur, trace edema Abdominal: NL Sounds; No Tenderness; No Distention Skin: No Rash or Ulcers Laboratory Results: 11/30/16 05:53 INR (Anticoag Therapy) 0.98 (0.89-1.11) 11/28/16 11:45 APTT 20.5 seconds (26.0-36.3) L 11/28/16 11:45 Total Bilirubin 0.70 mg/dL (0.2-1.0) 11/28/16 11:45 AST 12 U/L (13-39) L 11/28/16 11:45 ALT 18 U/L (7-52) 11/28/16 11:45 Alkaline Phosphatase 48 U/L (34-104) 11/28/16 11:45 B-Natriuretic Peptide 493 pg/mL (-100) H 11/28/16 11:45 Total Protein 7.0 g/dL (6.4-8.9) 11/28/16 11:45 Albumin 3.8 g/dL (3.2-5.2) 11/28/16 11:45 Globulin 3.2 g/dL (2-4) 11/28/16 11:45 Albumin/Globulin Ratio 1.2 (1-3) 11/28/16 11:45 Diagnostic Imagin, proximal LAD stented and he is on medical management for 60% to 70% occlusion in an OM-2 branch and a 50% to 55% occlusion in the right coronary artery. He underwent stenting in 2012 for severe stenosis of his proximal stent, and his OM and RCA disease was stable. TTE 07/2015: LVEF 65-70%, normal LA size, no significant valvular abnormalities noted, PASP not estimated EKG Data: ekg 11/29/2016: AFib rate 105 bpm, RBBB with non-sepcific ST/T changes improved ST-depresion v4- v6 from 11/28 EKG Data: ekg 11/29/2016: AFib rate 105 bpm, RBBB with non-sepcific ST/T changes improved ST-depresion v4-v6 from 11/28 Assessment/Plan Mr. Bautista is a 71-year-old man with a history of prior tobacco use quit 2007 , CAD s/p PCI, paroxysmal atrial fibrillation had been on beta-camilo and multaq in past they were stopped due to respiratory concerns, prior hemorrhoidal bleeding had declined AC in past, pacemaker COPD, nocturnal oxygen use with recent [facility] [place] visit 11/22/2016 with chest pain found with sinus rhythm, cTnI of 0.03 and nuclear stress test (I reviewed images) was limited by patient motion but there was a small fixed inferoseptal defect that may have been artifactual. Patient was started on treatment for COPD exacerbation including steroids. The night before admission developed chest discomfort and palpitations and was found with rapid atrial fibrillation. His troponin was as high as 0.05. There were some new ST/T wave changes in the setting of rapid atrial fibrillation. Case was reviewed with interventionalist Dr. Shelby and he did not feel a cardiac catheterization was warranted at this time. After discussion he was agreeable to take anticoagulation for ischemic stroke risk reduction. Metoprolol was added to cardizem for rate control and he tolerated this very well from a respiratory standpoint and he is now entirely asymptomatic with rate controlled atrial fibrillaton - Continue aspirin 81 mg PO daily - Continue eliquis 5 mg PO BID - Continue statin - Continue cardizem and beta-camilo, rate now controlled and asymptomatic tolerating beta-camilo well - Will continue rate control strategy for now as is asymptomatic, can be re- evaluated in the future pending clinical course - Will arrange cardiology follow up. Thank you for allowing me to participate in the cardiovascular care of this patient. Please do not hesitate to contact me with questions or concerns.
[2016-11-30] MEDS: Mometasone/Formoter 100/5 MDI INH SCH (08:35)
[2016-11-30] MEDS ORDERED: Metoprolol Succinate XL TAB* 50 MG PO SCH (09:00)
[2016-11-30] MEDS ORDERED: Diltiazem CD CAP* 240 MG PO SCH (09:00)
[2016-11-30] MEDS ORDERED: predniSONE TAB* 20 MG PO SCH (09:00)
[2016-11-30] MEDS: Atorvastatin* 20 MG TAB PO SCH (09:20)
[2016-11-30] MEDS: Finasteride TAB* 5 MG PO SCH (09:20)
[2016-11-30] MEDS: Omeprazole CAP* 20 MG PO SCH (09:20)
[2016-11-30] MEDS: Montelukast Sodium TAB* 10 MG PO SCH (09:20)
[2016-11-30] MEDS: Ferrous Sulfate TAB* 325 MG PO SCH (09:21)
[2016-11-30] MEDS: Aspirin EC Low Dose* 81 MG TAB.EC PO SCH (09:21)
[2016-11-30 11:44] VITALS: BP 107/79
[2016-11-30] MEDS ORDERED: Apixaban* 5 MG TAB PO SCH (21:00)
--- NOTE | 2016-11-30 23:18 | DS ---
DISCHARGE / SUMMARY: DATE OF ADMISSION: 11/28/16 DATE OF DISCHARGE: 11/30/16 PRIMARY CARE PROVIDER: Dr. Aakash Alonso at the [place] TEXTILE SCREEN MAKER: Dr. Stone. PRIMARY DIAGNOSIS: Atrial fibrillation with rapid ventricular response. SECONDARY DIAGNOSES: 1. Acute chronic obstructive pulmonary disease exacerbation. 2. Acute diastolic heart failure exacerbation. 3. History of GI bleed. 4. Chest pain. MEDICATIONS ON DISCHARGE: 1. Singulair 10 mg daily. 2. Prilosec 20 mg daily. 3. Magnesium oxide 800 mg daily. 4. Losartan 50 mg daily, decrease from twice daily. 5. Finasteride 5 mg daily. 6. Ferrous sulfate 325 mg twice daily. 7. Lipitor 60 mg daily. 8. Aspirin 81 mg daily. 9. Symbicort 80/4.5 mg 2 puffs twice daily. 10. Prednisone 40 mg for 5 additional days. 11. Nitroglycerin 0.4 mg sublingual every 5 minutes as needed for chest pain up to 3 times. 12. Metoprolol succinate XL 50 mg twice daily. 13. New medication, diltiazem CD 240 mg daily, please note, increased from 120 mg daily. 14. Apixaban 5 mg twice daily, new medication. Seen in consultation with Cardiology. HISTORY OF PRESENT ILLNESS AND HOSPITAL COURSE: A 71-year-old man, recent hospital stay with chest pain as well as thought to be in the setting of COPD exacerbation, negative stress test, returned with recurrent fluttering of the chest as well as chest pain, found to be in atrial fibrillation with rapid ventricular response. His lungs were quite wheezy and had bilateral rhonchi thought still to represent continued COPD exacerbation. He was treated with increased diltiazem doses as well as addition of metoprolol to his regimen with adequate rate control. Note, he has permanent pacemaker did not happen. Additionally, his steroids were restarted, titrated back to oral steroids prior to discharge with great improvement in his breathing and subjective sense of shortness of breath. He did receive 2 doses of Lasix both today prior to discharge as well as the day of discharge from mild decompensated and diastolic heart failure exacerbation in the setting of atrial fibrillation. On the day of discharge, the patient was ambulatory around the unit. He subjectively felt better. His lungs were clear. He had an irregularly irregular heart rate and he had very trace lower extremity edema. The risks and benefits of starting anticoagulation in the setting of atrial fibrillation were discussed with the patient and he opted to start anticoagulation at our recommendation. He was started on Eliquis prior to discharge, converted from Lovenox. At followup, please; 1. Evaluate for continued rate control. 2. Evaluate for continued blood pressure control. Multiple medications have been changed in the setting of increased AV margoth blockade. Decreased dose of losartan. Spirolactone was not restarted on discharge nor was the nitroglycerin patch. 3. No other specific labs or vitals that need followup. Reasons to return to the hospital including but not limited to worsening of symptoms, chest pain, shortness of breath, nausea, vomiting, lightheadedness, loss of consciousness, near loss of consciousness, palpitations, inability to obtain or tolerate his medications were discussed with the patient and he acknowledged understanding. TIME SPENT: Greater than 60 minutes was spent in discharge of this patient, greater than half was spent [id number] with the patient. CC: Dr. Aakash Alonso at the [place]; Dr. Stone * [id number]/[facility] #: [id number] [facility]
--- NOTE | 2016-12-12 23:56 | ED ---
Tiana Hewitt Matthew, scribed for Billy Eduardo MD on 11/28/16 at 1215 . HPI Chest Pain - HPI Summary HPI Summary: A 71 y/o male presents [facility] with intermittent left lateral chest pain since 22:30 last night. While in the EMS, the patient's chest pain spontaneously resolved. He was given aspirin at the [facility]. He arrived with a NTG 0.2mg patch. Associated symptoms include diaphoresis and cough. The patient denies SOB. The chest pain worsened with exertion. The patient uses home oxygen. He has a Hx of stents and two MIs. He was at the [facility] for evaluation of new onset Afib. The patient was seen here on 11/22/16 for chest pain with similar symptoms; however, he rates this pain worse than his pervious episode. - History of Current Complaint Chief Complaint: EDDysrhythmPalp Time Seen by Provider: 11/28/16 11:53 Hx Obtained From: Patient, Family/Embossing Machine Tender - Onset/Duration: Started Days Ago, Atraumatic, Still Present Time of Onset: 22:30 - yesterday Timing: Intermittent Initial Severity: Moderate Current Severity: None Pain Intensity: 0 Pain Scale Used: 0-10 Numeric Chest Pain Location: Left Lateral Chest Pain Radiates: No Aggravating Factor(s): Exertion Alleviating Factor(s): NTG 123 - Patch, OTC Meds - Aspirin Associated Signs and Symptoms: Positive: Chest Pain, Diaphoresis, Cough. Negative: Shortness of Breath - Additional Pertinent History Primary Care Physician: [id number] - Allergy/Home Medications Allergies/Adverse Reactions: Allergies Allergy/AdvReac Type Severity Reaction Status Date / Time Bupropion [From Wellbutrin] Allergy Intermediate Dizziness Verified 03/27/15 15: 59 Morphine Allergy Intermediate See Comment Verified 03/27/15 15:59 Penicillins Allergy Intermediate Swelling Verified 03/27/15 15:59 PMH/Surg Hx/FS Hx/Imm Hx Endocrine/Hematology History: Reports: Hx Anticoagulant Therapy, Hx Diabetes, Hx Anemia Cardiovascular History: Reports: Hx Angina, Hx Angioplasty, Hx Coronary Artery Disease, Hx Hypercholesterolemia, Hx Hypertension, Hx Myocardial Infarction - PT STATES, Hx Pacemaker/ICD - 5/15, Other Cardiovascular Problems/Disorders - cardiac stent 2012 Denies: Hx Congestive Heart Failure, Hx Deep Vein Thrombosis Respiratory History: Reports: Hx Chronic Obstructive Pulmonary Disease (COPD), Other Respiratory Problems/Disorders - 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 Denies: Hx Asthma GI History: Reports: Hx Diverticulosis, Hx Gastroesophageal Reflux Disease, Hx Gastrointestinal Bleed, Hx Obstructive Bowel - twisted bowel that required surgery 1996 History: Reports: Hx Benign Prostatic Hyperplasia Sensory History: Reports: Hx Contacts or Glasses Opthamlomology History: Reports: Hx Contacts or Glasses Neurological History: Reports: Hx Headaches Psychiatric History: Reports: Hx Anxiety - Cancer History Cancer Type, Location and Year: "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 Left lung removal of mass. 1 cardiac stent in 2011 Hx Anesthesia Reactions: No Infectious Disease History: No Infectious Disease History: Denies: Traveled Outside the [place] in Last 30 Days - Family History Known Family History: Negative: Cardiac Disease - Social History Alcohol Use: None Substance Use Type: Reports: None Hx Tobacco Use: Yes Smoking Status (MU): Former Smoker Review of Systems Positive: Skin Diaphoresis. Negative: Fever, Chills Eyes: Negative Negative: Erythema ENT: Negative Negative: Sore Throat, Nasal Discharge Positive: Chest Pain Positive: Cough. Negative: Shortness Of Breath Gastrointestinal: Negative Negative: Abdominal Pain, Vomiting, Diarrhea, Nausea Genitourinary: Negative Negative: dysuria, hematuria Musculoskeletal: Negative Negative: Myalgia, Edema - pedal edema Skin: Negative Negative: Rash Neurological: Negative Psychological: Normal All Other Systems Reviewed And Are Negative: Yes Physical Exam Triage Information Reviewed: Yes Vital Signs On Initial Exam: Initial Vitals Temp Pulse Resp BP Pulse Ox 97.6 F 111 16 121/83 97 11/28/16 11:36 11/28/16 11:36 11/28/16 11:36 11/28/16 11:36 11/28/16 11:36 Vital Signs Reviewed: Yes Appearance: Positive: Well-Appearing, Well-Nourished Skin: Positive: Warm, Dry Head/Face: Positive: Other - Normocephalic; Atraumatic Eyes: Positive: Conjunctiva Clear Dental: Negative: Cervical Lymphadenopathy Neck: Positive: No Lymphadenopathy, Other: - Musculoskeletal ROM normal neck; No JVD Respiratory/Lung Sounds: Positive: Breath Sounds Present, Other - Normal Effort. Negative: Rales, Stridor, Tracheal Deviation, Wheezes Cardiovascular: Positive: IRR, Other - Intact distal pulses; The pedal pulses are 2+ and symmetric. Radial pulses are 2+ and symmetric.. Negative: Murmur Abdomen Description: Positive: Nontender, Soft, Other: - No Rebound. Negative: Distended, Guarding Musculoskeletal: Negative: Edema Left, Edema Right Neurological: Positive: Alert, Oriented to Person Place, Time Psychiatric: Positive: Normal, Affect/Mood Appropriate - [place] Coma Scale Coma Scale Total: 15 Diagnostics - Vital Signs Vital Signs Temp Pulse Resp BP Pulse Ox 11/28/16 11:38 19 121/83 11/28/16 11:36 97.6 F 111 16 121/83 97 - Laboratory Lab Results: Lab Results 11/28/16 11/28/16 11/28/16 Range/Units 11:45 11:45 11:45 WBC 16.3 H (3.5-10.8) 10^3/ul RBC 6.03 H (4.0-5.4) 10^6/ul Hgb 15.5 (14.0-18.0) g/dl Hct 46 (42-52) % MCV 76 L (80-94) fL MCH 26 L (27-31) pg MCHC 34 (31-36) g/dl RDW 15 (10.5-15) % Plt Count 279 (150-450) 10^3/ul MPV 8 (7.4-10.4) um3 Neut % (Auto) 73.6 (38-83) % Lymph % (Auto) 16.5 L (25-47) % Bent % (Auto) 8.2 (1-9) % Eos % (Auto) 0.8 (0-6) % Baso % (Auto) 0.9 (0-2) % Absolute Neuts (auto) 12.0 H (1.5-7.7) 10^3/ul Absolute Lymphs (auto) 2.7 (1.0-4.8) 10^3/ul Absolute Monos (auto) 1.3 H (0-0.8) 10^3/ul Absolute Eos (auto) 0.1 (0-0.6) 10^3/ul Absolute Basos (auto) 0.1 (0-0.2) 10^3/ul Absolute Nucleated RBC 0.01 10^3/ul Nucleated RBC % 0.1 INR (Anticoag Therapy) 0.98 (0.89-1.11) APTT 20.5 L (26.0-36.3) seconds Sodium 136 (133-145) mmol/L Potassium 3.8 (3.5-5.0) mmol/L Chloride 100 L (101-111) mmol/L Carbon Dioxide 30 (22-32) mmol/L Anion Gap 6 (2-11) mmol/L BUN 32 H (6-24) mg/dL Creatinine 1.05 (0.67-1.17) mg/dL Est GFR ( Amer) 89.0 (>60) Est GFR (Non-Af Amer) 69.2 (>60) BUN/Creatinine Ratio 30.5 H (8-20) Glucose 149 H (70-100) mg/dL Calcium 10.5 H (8.6-10.3) mg/dL Magnesium (1.9-2.7) mg/dL Total Bilirubin 0.70 (0.2-1.0) mg/dL AST 12 L (13-39) U/L ALT 18 (7-52) U/L Alkaline Phosphatase 48 (34-104) U/L Total Creatine Kinase 27 (10-223) U/L Troponin I 0.05 H* (<0.04) ng/mL B-Natriuretic Peptide ( - 100) pg/mL Total Protein 7.0 (6.4-8.9) g/dL Albumin 3.8 (3.2-5.2) g/dL Globulin 3.2 (2-4) g/dL Albumin/Globulin Ratio 1.2 (1-3) 11/28/16 11/28/16 11/28/16 Range/Units 11:45 15:20 18:10 WBC (3.5-10.8) 10^3/ul RBC (4.0-5.4) 10^6/ul Hgb (14.0-18.0) g/dl Hct (42-52) % MCV (80-94) fL MCH (27-31) pg MCHC (31-36) g/dl RDW (10.5-15) % Plt Count (150-450) 10^3/ul MPV (7.4-10.4) um3 Neut % (Auto) (38-83) % Lymph % (Auto) (25-47) % Bent % (Auto) (1-9) % Eos % (Auto) (0-6) % Baso % (Auto) (0-2) % Absolute Neuts (auto) (1.5-7.7) 10^3/ul Absolute Lymphs (auto) (1.0-4.8) 10^3/ul Absolute Monos (auto) (0-0.8) 10^3/ul Absolute Eos (auto) (0-0.6) 10^3/ul Absolute Basos (auto) (0-0.2) 10^3/ul Absolute Nucleated RBC 10^3/ul Nucleated RBC % INR (Anticoag Therapy) (0.89-1.11) APTT (26.0-36.3) seconds Sodium (133-145) mmol/L Potassium (3.5-5.0) mmol/L Chloride (101-111) mmol/L Carbon Dioxide (22-32) mmol/L Anion Gap (2-11) mmol/L BUN (6-24) mg/dL Creatinine (0.67-1.17) mg/dL Est GFR ( Amer) (>60) Est GFR (Non-Af Amer) (>60) BUN/Creatinine Ratio (8-20) Glucose (70-100) mg/dL Calcium (8.6-10.3) mg/dL Magnesium (1.9-2.7) mg/dL Total Bilirubin (0.2-1.0) mg/dL AST (13-39) U/L ALT (7-52) U/L Alkaline Phosphatase (34-104) U/L Total Creatine Kinase 24 26 (10-223) U/L Troponin I 0.06 H* 0.05 H* (<0.04) ng/mL B-Natriuretic Peptide 493 H ( - 100) pg/mL Total Protein (6.4-8.9) g/dL Albumin (3.2-5.2) g/dL Globulin (2-4) g/dL Albumin/Globulin Ratio (1-3) 11/29/16 11/29/16 11/29/16 Range/Units 04:34 04:34 04:34 WBC 7.2 (3.5-10.8) 10^3/ul RBC 5.85 H (4.0-5.4) 10^6/ul Hgb 15.0 (14.0-18.0) g/dl Hct 45 (42-52) % MCV 77 L (80-94) fL MCH 26 L (27-31) pg MCHC 33 (31-36) g/dl RDW 15 (10.5-15) % Plt Count 224 (150-450) 10^3/ul MPV 9 (7.4-10.4) um3 Neut % (Auto) 87.6 H (38-83) % Lymph % (Auto) 10.5 L (25-47) % Bent % (Auto) 1.6 (1-9) % Eos % (Auto) 0 (0-6) % Baso % (Auto) 0.3 (0-2) % Absolute Neuts (auto) 6.3 (1.5-7.7) 10^3/ul Absolute Lymphs (auto) 0.8 L (1.0-4.8) 10^3/ul Absolute Monos (auto) 0.1 (0-0.8) 10^3/ul Absolute Eos (auto) 0 (0-0.6) 10^3/ul Absolute Basos (auto) 0 (0-0.2) 10^3/ul Absolute Nucleated RBC 0 10^3/ul Nucleated RBC % 0.1 INR (Anticoag Therapy) (0.89-1.11) APTT (26.0-36.3) seconds Sodium 133 (133-145) mmol/L Potassium 4.3 (3.5-5.0) mmol/L Chloride 98 L (101-111) mmol/L Carbon Dioxide 29 (22-32) mmol/L Anion Gap 6 (2-11) mmol/L BUN 35 H (6-24) mg/dL Creatinine 1.10 (0.67-1.17) mg/dL Est GFR ( Amer) 84.4 (>60) Est GFR (Non-Af Amer) 65.6 (>60) BUN/Creatinine Ratio 31.8 H (8-20) Glucose 273 H (70-100) mg/dL Calcium 9.6 (8.6-10.3) mg/dL Magnesium 1.9 (1.9-2.7) mg/dL Total Bilirubin (0.2-1.0) mg/dL AST (13-39) U/L ALT (7-52) U/L Alkaline Phosphatase (34-104) U/L Total Creatine Kinase (10-223) U/L Troponin I 0.03 0.04 H* (<0.04) ng/mL B-Natriuretic Peptide ( - 100) pg/mL Total Protein (6.4-8.9) g/dL Albumin (3.2-5.2) g/dL Globulin (2-4) g/dL Albumin/Globulin Ratio (1-3) Result Diagrams: 11/29/16 04:34 11/30/16 05:53 Lab Statement: Any lab studies that have been ordered have been reviewed, and results considered in the medical decision making process. - EKG 11:35 Cardiac Rate: Tachycardia - 118 EKG Rhythm: Atrial Fibrillation EKG Interpretation: RBBB; No STEMI; TWI V3-V6 Chest Pain Course/Dx - Course Assessment/Plan: A 71 y/o male presents to the ED from the [facility] with intermittent chest pain since 22:30 last night. While in the EMS, the patient's chest pain spontaneously resolved. The chest pain worsens with exertion. He has a cardiac Hx of two Mis and stents. Labs reviewed and reveal a first troponin of 0.05 and a second troponin of 0.06. EKG shows Afib at 118 bpm with RBBB and TWI in leads V3-V6. Discussed the case with Dr. Priest recommends admission and discussed the case with Dr. Shelby. Dr. Anderson will accept admission of the patient. - Diagnoses Provider Diagnoses: Chest pain - Provider Notifications Discussed Care Of Patient With: Dr. Priest (Cardiology) at 12:59 -- Notified of patient's history and will evaluate the patient. Dr. Priest (Cardiology) at 14:06 -- Recommends hospitalist admission. She discussed the case with Dr. Shelby who will review the case. Dr. Anderson (Hospitalist) -- Notified of patinet's history and will admit the patient into his services. Discharge - Discharge Plan Condition: Stable Disposition: ADMITTED TO [facility] documentation as recorded by the Tiana russ Matthew accurately reflects the service I personally performed and the decisions made by , Billy Eduardo MD.
== END 2016-11-30 14:15 | disposition home or self-care (01) | DRG 308 ==
LOC: ED 11:28 → MEDTELE 16:03 → OBSVTOIN 11-29 15:31
PROVIDERS: ADMIT Internal Medicine; ATTEND Internal Medicine
DX: I48.0 Paroxysmal atrial fibrillation (principal); I50.31 Acute diastolic (congestive) heart failure; I49.5 Sick sinus syndrome; E11.9 Type 2 diabetes mellitus without complications; J44.1 Chronic obstructive pulmonary disease with (acute) exacerbation; I25.10 Atherosclerotic heart disease of native coronary artery without angina pectoris; G47.33 Obstructive sleep apnea (adult) (pediatric); D50.9 Iron deficiency anemia, unspecified; I11.0 Hypertensive heart disease with heart failure; N40.0 Benign prostatic hyperplasia without lower urinary tract symptoms; R74.8 Abnormal levels of other serum enzymes; K21.9 Gastro-esophageal reflux disease without esophagitis; Z95.5 Presence of coronary angioplasty implant and graft; Z79.52 Long term (current) use of systemic steroids; Z79.899 Other long term (current) drug therapy; Z79.82 Long term (current) use of aspirin; Z88.6 Allergy status to analgesic agent; Z88.0 Allergy status to penicillin; Z88.8 Allergy status to other drugs, medicaments and biological substances; Z80.1 Family history of malignant neoplasm of trachea, bronchus and lung; Z82.49 Family history of ischemic heart disease and other diseases of the circulatory system; Z87.891 Personal history of nicotine dependence; Z95.810 Presence of automatic (implantable) cardiac defibrillator
CPT/HCPCS: 36415; 71010; 80048; 80053; 82550; 83735; 83880; 84484; 85025; 85610; 85730; 93005; 94640; A9270-GY; G0378; J1650; J1940; J2920; J7512

== ENCOUNTER 2016-12-14 06:55 | Observation (INO) | payer MEDICARE, OTHER ==
[2016-12-14 07:17] LABS: Hematocrit 40 % (42-52); Hemoglobin 13.6 g/dl (14.0-18.0); Mean Corpuscular HGB Conc 34 g/dl (31-36); Mean Corpuscular Hemoglobin 26 pg (27-31); Mean Corpuscular Volume 76 fL (80-94); Mean Platelet Volume 8 um3 (7.4-10.4); Red Blood Count 5.28 10^6/ul (4.0-5.4); Red Cell Distribution Width 15 % (10.5-15); White Blood Count 8.8 10^3/ul (3.5-10.8)
[2016-12-14 07:33] LABS: BUN/Creatinine Ratio 17.4 (8-20); Calcium 9.5 mg/dL (8.6-10.3); EGFR African American 85.3 (>60); EGFR Non-African American 66.3 (>60); Potassium 4.2 mmol/L (3.5-5.0)
--- NOTE | 2016-12-14 07:35 | ED ---
HPI Chest Pain - HPI Summary HPI Summary: Patient resents for evaluation of recurrent L anterior, sudden onset, atraumatic , non radiating chest pain. Began at 0500, resolved 20 minutes later with 2 NTG. Typical for him. Denies trauma, shortness of breath, systemic symptoms, n , v. No aggrav factors. He felt well last night. Did not contact his PCP at the [facility], Dr. Bowen. - History of Current Complaint Chief Complaint: EDChestPainROMI Time Seen by Provider: 12/14/16 06:59 Hx Obtained From: Patient, EMS Onset/Duration: Started Hours Ago, Atraumatic, Resolved Timing: Constant, Lasting Minutes Initial Severity: Moderate Current Severity: None Pain Intensity: 0 Chest Pain Location: Left Anterior Chest Pain Radiates: No Character: Other: - Sharp and Cramping Aggravating Factor(s): Nothing Alleviating Factor(s): NTG 123 - 2 self administered Associated Signs and Symptoms: Negative: Vision Changes, Headaches, Numbness, Weakness, Shortness of Breath, Syncope, Fever, Chills, Lightheadedness, Diaphoresis, Nausea, Palpitations, Cough, Back Pain, URI - Risk Factors AMI/ACS Risk Factors: Myocardial Infarction, Sedentary Lifestyle, Smoking - Additional Pertinent History Primary Care Physician: [id number] Recent Echo: Yes Date of Recent Echo and LV Function: Saturday, Dec 12, 2016 - Allergy/Home Medications Allergies/Adverse Reactions: Allergies Allergy/AdvReac Type Severity Reaction Status Date / Time Bupropion [From Wellbutrin] Allergy Intermediate Dizziness Verified 03/27/15 15: 59 Morphine Allergy Intermediate See Comment Verified 03/27/15 15:59 Penicillins Allergy Intermediate Swelling Verified 03/27/15 15:59 PMH/Surg Hx/FS Hx/Imm Hx Endocrine/Hematology History: Reports: Hx Anticoagulant Therapy, Hx Diabetes, Hx Anemia Cardiovascular History: Reports: Hx Angina, Hx Angioplasty, Hx Auto Implanted Cardiovert Defib - November 2014, Hx Coronary Artery Disease, Hx Hypercholesterolemia, Hx Hypertension, Hx Myocardial Infarction - PT STATES, Hx Pacemaker/ICD - 5/15, Other Cardiovascular Problems/Disorders - cardiac stent 2012 Denies: Hx Congestive Heart Failure, Hx Deep Vein Thrombosis Comment Only: Hx Cardiac Arrest - 2014 Respiratory History: Reports: Hx Chronic Obstructive Pulmonary Disease (COPD), Other Respiratory Problems/Disorders - 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 Denies: Hx Asthma GI History: Reports: Hx Diverticulosis, Hx Gastroesophageal Reflux Disease, Hx Gastrointestinal Bleed, Hx Obstructive Bowel - twisted bowel that required surgery 1996 History: Reports: Hx Benign Prostatic Hyperplasia Sensory History: Reports: Hx Contacts or Glasses, Hx Vision Problem - Cant see distance. Denies: Hx Eye Injury Opthamlomology History: Reports: Hx Contacts or Glasses, Hx Vision Problem - Cant see distance. Denies: Hx Eye Injury Neurological History: Reports: Hx Headaches Psychiatric History: Reports: Hx Anxiety - Cancer History Cancer Type, Location and Year: "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 Left lung removal of mass. 1 cardiac stent in 2010 Hx Anesthesia Reactions: No Infectious Disease History: Yes Infectious Disease History: Denies: Traveled Outside the [place] in Last 30 Days - Family History Known Family History: Negative: Cardiac Disease - Social History Alcohol Use: None Substance Use Type: Reports: None Hx Tobacco Use: Yes Smoking Status (MU): Former Smoker Type: Cigarettes Have You Smoked in the Last Year: No Review of Systems Constitutional: Negative Eyes: Negative ENT: Negative Positive: Chest Pain Respiratory: Negative Gastrointestinal: Negative Neurological: Negative All Other Systems Reviewed And Are Negative: Yes Physical Exam Triage Information Reviewed: Yes Vital Signs On Initial Exam: Initial Vitals Temp Pulse Resp BP Pulse Ox 97.2 F 73 16 155/71 97 12/14/16 06:57 12/14/16 06:57 12/14/16 06:57 12/14/16 06:57 12/14/16 06:57 Vital Signs Reviewed: Yes Appearance: Positive: Well-Appearing, No Pain Distress, Well-Nourished Skin: Positive: Warm, Dry - No pain on the L anterior pacemaker site. Reproducible L anterior, inferior to the pacemaker., Soft Head/Face: Positive: Normal Head/Face Inspection Eyes: Positive: Normal ENT: Positive: Normal ENT inspection Neck: Positive: Supple - No carotid bruits. Respiratory/Lung Sounds: Positive: Clear to Auscultation, Breath Sounds Present Cardiovascular: Positive: Normal, RRR Abdomen Description: Positive: Nontender, No Organomegaly, Soft Musculoskeletal: Positive: Normal, Strength/ROM Intact Neurological: Positive: Normal, Sensory/Motor Intact, Alert, Oriented to Person Place, Time, CN Intact II-III Psychiatric: Positive: Normal - [place] Coma Scale Coma Scale Total: 15 Diagnostics - Vital Signs Vital Signs Temp Pulse Resp BP Pulse Ox 12/14/16 06:57 97.2 F 73 16 155/71 97 - Laboratory Lab Results: Lab Results 12/14/16 Range/Units 07:05 WBC 8.8 (3.5-10.8) 10^3/ul RBC 5.28 (4.0-5.4) 10^6/ul Hgb 13.6 L (14.0-18.0) g/dl Hct 40 L (42-52) % MCV 76 L (80-94) fL MCH 26 L (27-31) pg MCHC 34 (31-36) g/dl RDW 15 (10.5-15) % Plt Count 161 (150-450) 10^3/ul MPV 8 (7.4-10.4) um3 Result Diagrams: 12/14/16 07:05 12/14/16 07:05 Lab Statement: Any lab studies that have been ordered have been reviewed, and results considered in the medical decision making process. Chest Pain Course/Dx - Course Course Of Treatment: EKG with NSR similar in morphology but deepened T waves in lateral leads. HR 62. 08:06 Discussed the case with Dr. Solares, covering for Dr. Stone. He recommended admission based on deepened T wave inversions on the lateral EKG leads as well as complicated cardiac history. 08:07 Hospitalist paged for admission. Dr. Person will admit for observation, understands the EKG changes and that Cardiology will consult. - Chest Pain Differential Diagnosis/HQI/PQRI: Angina, Chest Wall, Other: - Primary concern for recurrent angina. Equal pulses with low concern for aneurysm. Will discuss with cardiology after CXR, EKG, and lab work. Resolved on presentation. - Diagnoses Provider Diagnoses: Chest pain due to myocardial ischemia Discharge - Discharge Plan Condition: Good Disposition: ADMITTED TO [facility]
--- NOTE | 2016-12-14 07:48 | RAD ---
HISTORY: Chest pain COMPARISONS: November 28, 2016 VIEWS: 2: Frontal dual-energy and lateral views of the chest. FINDINGS: CARDIOMEDIASTINAL SILHOUETTE: The cardiomediastinal silhouette is normal. CHEKO: The cheko are normal. PLEURA: The costophrenic angles are sharp. No pleural abnormalities are noted. LUNG PARENCHYMA: The lungs are clear. ABDOMEN: The upper abdomen is clear. There is no subphrenic gas. BONES AND SOFT TISSUES: No bone or soft tissue abnormalities are noted. OTHER: A left-sided pacemaker is noted IMPRESSION: NO ACTIVE CARDIOPULMONARY DISEASE.
[2016-12-14] MEDS ORDERED: Acetaminophen TAB* 325 MG PO PRN (08:16)
[2016-12-14] MEDS ORDERED: Ondansetron INJ* 2 MG/ML VIAL IV PRN (08:16)
[2016-12-14] MEDS ORDERED: Aspirin Low Dose CHEW TAB* 81 MG PO ONE (08:21)
--- NOTE | 2016-12-14 11:38 | CONSULT ---
Subjective Date of Service: 12/14/16 Interval History: Admit and consult date 12/14/2016 PMD: Dr. Alonso at [employer]: Dr. Stone CC: Palpitaitons, chest pain Reason for consult: Palpitations, chest pain. ANGELY Bautista is a 71-year-old male patient who has a history of CAD, COPD, paroxysmal AFib, anemia, tachy-georgina syndrome, status post pacemaker, hypertension, diet controlled diabetes, and JEANNINE. Recent admission for copd exerbation and AFib asymptomatic after strict rate control. I saw patient 2016 in the office was doing well no wheezing on beta-camilo feeling well had reverted to NSR after discharge. Had some edema diltiazem decreased from 480 to 240 mg PO daily was doing well. His edema did significant improve. This AM woke up with fluttering/palpitations in the chest, sharp chest pain radiating left arm and blurry vision. Relieved with time SL NTG x 2 now asymptomatic and sinus rhythm on arrival. Device interogation this AM showed episodes of rapid atrial fibrillation (several recording) including at 4:52 AM Avg V rate 130-150 bpm on different episodes that correlated to his symptoms. NSR now and asymptomatic although wheezing on exam which I had not appreciated end of prior hospitalization or office visit when on beta-camilo and asymptomatic. No fevers, chills, cough, fevers or dyspnea PAST MEDICAL HISTORY: Significant for: 1. CAD. 2. COPD. 3. AFib. 4. Anemia. 5. Tachy-georgina syndrome. 6. Hypertension. 7. GI bleed. 8. BPH. 9. Diabetes. 10. JEANNINE wears oxygen at night. PAST SURGICAL HISTORY: 1. He has had a heart catheterization. 2. Pacemaker placement. HOME MEDICATIONS: According to the last note on the Saturday of this week from Dr. Solares's office includes: 1. Lipitor 60 mg daily. 2. Incruse Ellipta one inhale daily. 3. Spiriva 2 puffs daily. 4. Symbicort 2 puffs twice a day. 5. Diltiazem, he was on 240 daily. 6. Valsartan 160 mg a day. 7. Metoprolol XL 50 mg twice a day. 8. Xarelto 20 mg a day. 9. Ferrous sulfate 325 mg p.o. twice daily. 10. Magnesium oxide 800 mg p.o. a day. 11. Finasteride 5 mg daily. 12. Aspirin 81 mg a day. 13. Calcium with vitamin D one tablet daily. ALLERGIES: To medications include: WELLBUTRIN, MORPHINE and PENICILLIN. FAMILY HISTORY: His mother had lung cancer. Father had an [place]. SOCIAL HISTORY: He is a pack and half a day smoker. He quit in 2007. Rarely drinks alcohol. Surrogate decision maker is his . Medications Active Medications: Acetaminophen (Tylenol Tab*) 650 mg PO Q4H PRN PRN Reason: FEVER/PAIN Aspirin (Aspirin Ec Low Dose*) 81 mg PO DAILY [facility] Atorvastatin Calcium (Lipitor*) 60 mg PO DAILY [facility] Ferrous Sulfate (Ferrous Sulfate Tab*) 325 mg PO BID [facility] Finasteride (Proscar Tab*) 5 mg PO DAILY [facility] Losartan Potassium (Cozaar Tab*) 50 mg PO DAILY [facility] Magnesium Oxide (Magox 400 Tab*) 800 mg PO DAILY [facility] Metoprolol Succinate (Toprol Xl Tab*) 50 mg PO BID [facility] Mometasone Furoate/Formoterol Fumar (Dulera 100/5 Mdi*) 2 puff INH BID [facility] Montelukast Sodium (Singulair Tab*) 10 mg PO DAILY [facility] Omeprazole (Prilosec Cap*) 20 mg PO DAILY [facility] Ondansetron HCl (Zofran Inj*) 4 mg IV Q4H PRN PRN Reason: NAUSEA/VOMITING Rivaroxaban (Xarelto (*)) 20 mg PO DAILY [facility] Home Medications: Review of Systems - Review of Systems Constitutional Symptoms: Negative: Weight Gain, Weight Loss, Weakness, Fatigue, Unexplained Falls Dermatology: Negative: Rash, Skin Lesions HEENT: Negative: Change in Hearing, Vertigo, Other Eyes: Negative: Change in Vision, Double Vision, Eye Pain Thyroid: Negative: Cold Intolerance, Heat Intolerance, Sweatiness, Tremor, Frequent Defecation, Constipation, Palpitations, Weight Loss, Weight Gain, Change in Skin /Hair Pulmonary: Positive: Wheezing, COPD Negative: Cough, Sputum, Hemoptysis, Respiratory Distress, Shortness of Breath Cardiology: Positive: Chest Pain, Palpitations Negative: Shortness of Breath, Swelling of Ankles, Peripheral Vascular Dis, Edema, Faintness, Syncope, Claudication, Paroxysmal Nocturnal Dyspnea, Orthopnea Gastroenterology: Negative: Abdominal Pain, Nausea, Vomiting, Anorexia, Indigestion, Difficulty Swallowing, Heartburn, Constipation, Diarrhea Genital - Urinary: Negative: Dysuria, Hematuria Musculoskeletal: Negative: Joint Pain, Joint Stiffness, Arthritis, Osteoporosis, Low Back Pain , Sciatica Endocrinology: Negative: Obesity, Diabetes, Hyperglycemia, Hypoglycemia, Calluses, Polydipsia, Polyuria, Gynecomastia, Pituitary Disease Hematologic/Lymphatic: Positive: Use of Anticoagulant, Use of Antiplatelet Drugs Negative: Easy Brusing, Hx Leukemia, Hx Lymphoma Neurology: Negative: Headaches, Migraines, Change in Vision, Diplopia, Dizziness, Change in Balancing, Change in Coordination, Change in Memory, Change in Speech , Change in Sphincter Function, Hx of Stroke\TIA, Hx Seizures Psychiatry: Negative: Unusual Anxiety, Suicidal Ideation, Hypomania, Eating Disorders Allergic/Immunologic: Negative: Hx HIV, Immunocompromise, Swollen Glands Lymph Nodes Review of Systems Statement: All other review of systems negative, unless stated above. Objective Vital Signs: Temp Pulse Resp BP Pulse Ox 97.2 F 66 16 125/75 97 12/14/16 09:41 12/14/16 09:41 12/14/16 09:41 12/14/16 09:41 12/14/16 09:41 Appearance: nad, pleasant Ears/Nose/Mouth/Throat: Clear Oropharnyx, Mucous Membranes Moist Neck: NL Appearance and Movements; NL JVP, Trachea Midline Respiratory: Symmetrical Chest Expansion and Respiratory Effort, - - diffuse scattered wheeze Cardiovascular: NL Sounds; No Murmurs; No JVD, RRR, - - trace to 1+ edema, pacemaker site intact Abdominal: NL Sounds; No Tenderness; No Distention Extremities: No Clubbing, Cyanosis Skin: No Rash or Ulcers Neurological: Alert and Oriented x 3 Laboratory Results: 12/14/16 07:05 12/14/16 07:05 12/14/16 12/14/16 12/14/16 07:05 12:20 14:42 Troponin I 0.00 0.01 0.01 Diagnostic Imaging: Diagnostic Imagin, proximal LAD stented and he is on medical management for 60% to 70% occlusion in an OM-2 branch and a 50% to 55% occlusion in the right coronary artery. He underwent stenting in 2012 for severe stenosis of his proximal stent, and his OM and RCA disease was stable. TTE 07/2015: LVEF 65-70%, normal LA size, no significant valvular abnormalities noted, PASP not estimated EKG Data: ekg 11/29/2016: AFib rate 105 bpm, RBBB with non-sepcific ST/T changes improved ST-depresion v4- v6 from 11/28 TTE 12/12/2016: Technically difficult study, LVEF 55-60%, no significant valvular abnormalities noted, unable to estimate PASP EKG Data: NSR, RBBB, asymmetric TWI across precordial leads slightly more pronounced than 12/11/2016 Assessment/Plan Mr. Bautista is a 71-year-old man with a history of prior tobacco use quit 2007 , CAD s/p PCI, paroxysmal atrial fibrillation had been on beta-camilo and multaq in past they were stopped due to respiratory concerns although since has tolerated beta-camilo well, prior hemorrhoidal bleeding, pacemaker COPD, nocturnal oxygen use with recent [facility] visit 11/22/2016 with chest pain found with sinus rhythm, cTnI of 0.03 and nuclear stress test (I reviewed images) was effected by patient motion there was a small fixed inferoseptal defect that may have been artifactual. Patient was started on treatment for COPD exacerbation including steroids. Was then re-admitted and discharged 11/30/2016 with dyspnea and chest pain and rapid atrial fibrillation resolved with rate control and COPD treatment and was tolerating beta-camilo well. His troponin was as high as 0.05. There were some new ST/T wave changes and case was reviewed with interventionalist Dr. Shelby and he did not feel a cardiac catheterization was warranted at that time. He had been doing well until this AM when admitted with another symptomatic (chest pain/palpitations) episode of rapid atrial fibrillation that self-resolved and now asymptomatic and there was no elevated of troponin serially even when tachycardic. - ? if lung issues are driving atrial fibrillation, will defer COPD treatment to primary service. - Continue aspirin - continue xarelto - Continue toprol 50 mg PO BID, has been tolerating well from respiratory standpoint - Increase cardizem back from 240 to 480 mg PO daily - I think patient would benefit from rhythm control strategy, will restart prior multaq 400 mg PO BID. Risks benefits and alternatives were discussed and patient would like to proceed - Patient has cardiology follow up scheduled 12/24/2016 Thank you for allowing me to participate in the cardiovascular care of this patient. Please do not hesitate to contact me with questions or concerns.
[2016-12-14] MEDS ORDERED: Albuterol 2.5 MG/3 ML NEB.SOL* (0.083%) INH PRN (11:47)
[2016-12-14] MEDS ORDERED: Dextrose 50% Syringe 50 ML* 25 GM/50 ML SYRINGE IV PUSH PRN (12:07)
[2016-12-14] MEDS: Mometasone/Formoter 100/5 MDI INH SCH ×2 (12:46→20:00)
[2016-12-14] MEDS: Dronedarone TAB* 400 MG PO SCH ×2 (13:43→21:19)
[2016-12-14] MEDS: Diltiazem CD CAP* 240 MG PO SCH (13:43)
--- NOTE | 2016-12-14 17:02 | HP ---
HISTORY AND PHYSICAL: DATE OF ADMISSION: 12/14/16 PRIMARY CARE PROVIDER: Dr. Aakash Alonso. MY ATTENDING PHYSICIAN WHILE IN THE HOSPITAL: Lakhwinder Aggarwal MD (report dictated by Emre Boothe NP) CONSULTING FASHION MERCHANDISER: Dr. Solares. CHIEF COMPLAINT: 1. Palpitation. 2. Chest pain. HISTORY OF PRESENT ILLNESS: Mr. Bautista is a 71-year-old male patient who has a history of CAD, COPD, AFib, anemia, tachy-georgina syndrome, status post pacemaker, hypertension, GI bleed, BPH, diet controlled diabetes, and JEANNINE. He comes into the ER today stating that he woke up he started feeling a fluttering and palpitations in his chest, felt like his heart was racing and started having chest discomfort, pain. He called 911 immediately and by the time 911 got there the symptoms had resolved, but he decided to come into the ER. Ultimately, pacemaker was interrogated and it was found that he was AFib with RVR. He denies having any chest pain currently. He says he has been feeling well recently. He did have recent decrease in his diltiazem. He denies having any abdominal pain. He denies having any recent fevers or chills, nausea or vomiting, or any cough or shortness of breath or fevers. Again, he says there was a recent change in his diltiazem and his dose was lowered and because of the chest discomfort and the AFib with RVR on pacemaker, hospitalist service was asked to evaluate for admission. PAST MEDICAL HISTORY: Significant for: 1. CAD. 2. COPD. 3. AFib. 4. Anemia. 5. Tachy-georgina syndrome. 6. Hypertension. 7. GI bleed. 8. BPH. 9. Diabetes. 10. JEANNINE, noncompliant with CPAP, he wears oxygen at night. PAST SURGICAL HISTORY: 1. He has had a heart catheterization. 2. Pacemaker placement. HOME MEDICATIONS: According to the last note on the Saturday of this week from Dr. Solares's office includes: 1. Lipitor 60 mg daily. 2. Incruse Ellipta one inhale daily. 3. Spiriva 2 puffs daily. 4. Symbicort 2 puffs twice a day. 5. Diltiazem, he was on 240 daily. 6. Valsartan 160 mg a day. 7. Metoprolol XL 50 mg twice a day. 8. Xarelto 20 mg a day. 9. Ferrous sulfate 325 mg p.o. twice daily. 10. Magnesium oxide 800 mg p.o. a day. 11. Finasteride 5 mg daily. 12. Aspirin 81 mg a day. 13. Calcium with vitamin D one tablet daily. ALLERGIES: To medications include: WELLBUTRIN, MORPHINE and PENICILLIN. FAMILY HISTORY: His mother had lung cancer. Father had an [place]. SOCIAL HISTORY: He is a pack and half a day smoker. He quit in 2007. Rarely drinks alcohol. Surrogate decision maker is his . REVIEW OF SYSTEMS: There is no documented fever. He denied having any significant weight change. There was no double vision. There was no ear discharge. There is no rhinorrhea. No sore throat. No thyroid enlargement. He denies having any chest pain currently. He denies having any abdominal discomfort. There is no nausea. No vomiting. No dysuria. No frequency. No loss of consciousness. Review of 14 systems completed, all others negative. PHYSICAL EXAMINATION GENERAL: At this time Mr. Bautista is a 71-year-old male patient. He appears well- nourished, well-developed, does not appear to be in any acute distress. VITAL SIGNS: Reveals blood pressure of 125/75, pulse 66, respirations 16, O2 sat 97%, and temperature 97.2. HEENT: Head is atraumatic and normocephalic. Eyes: Sclerae anicteric and not pale. Pupils are reactive to light. NECK: Supple. Throat: Oral mucosa appears to be moist. No oropharyngeal erythema. LUNGS: Clear to auscultation. He did have a slight wheeze in the upper lobes. Equal diaphragmatic expansion. HEART: Sounds S1 and S2. Irregular rate and rhythm. No murmurs, rubs, or gallops. ABDOMEN: Soft, flat, and nontender. Bowel sounds were present. EXTREMITIES: Pulses are 2+ throughout. He is able to move all four extremities with 5/5 strength. NEUROLOGIC: He is awake, alert, and oriented x3. Tongue midline. Optical Scientist are equal. No gross focal deficits. SKIN: Grossly intact. DIAGNOSTIC STUDIES/LAB DATA: Labs today reveal WBC of 8.8, RBC of 5.28, hemoglobin 13.6, hematocrit 40, and platelet count 160. Sodium 135, potassium 4.2, chloride of 101, bicarb 29, BUN 19, creatinine 1.09, troponin initially was 0, glucose 198. Chest x-ray today showed no active disease. He did have a stress test on the 22 of November of this year, which showed a fixed perfusion defect of the septum towards the apex. EKG today showed sinus rhythm with the right bundle-branch block rate of 62, appears to be paced at times. No previous EKG was noted. Old medical records were reviewed. ASSESSMENT AND PLAN: Mr. Bautista is a 71-year-old male patient coming into the ER today with complains of chest pain, palpitations. On evaluation found to be in trial fibrillation with rapid ventricular response. He was admitted to the hospital service for the trial fibrillation with rapid ventricular response and chest pain under observation status. Again, he will be admitted under observation status for: 1. Chest pain and atrial fibrillation with rapid ventricular response: At this time, I suspect the chest pain is probably related to the fact that he was in AFib with RVR. Pacemaker interrogation did confirm the trial fibrillation with rapid ventricular response. At this point, we did touch base with Dr. Solares, he did recommend increasing his diltiazem, starting on Multaq, which we have done. We will continue his Xarelto. We will strive for rate control and we will cycle is troponin and we will continue to monitor. 2. History of diabetes: I am going to check A1c and put him on insulin sliding scale, as his random glucose was 198. 3. Coronary artery disease: Continue his medication as prescribed. He is on a beta camilo, statin, and aspirin. 4. Chronic obstructive pulmonary disease: His lungs actually sound pretty good. I am going to put him on Spiriva and Dulera while he is here and place him on the Symbicort. 5. Anemia. His H and H is stable. 6. Hypertension: Continue meds as prescribed. 7. Benign prostatic hypertrophy. Continue finasteride. 8. Obstructive sleep apnea: Continue wearing O2 at night. 9. DVT prophylaxis: He is on Xarelto. 10. Code status: Full code. 11. Fluids, electrolytes, and nutrition: He can have a heart healthy diet. TIME SPENT: Time spent on the admission was 60 minutes; greater than half the time was spent [id number] with the patient obtaining my history and physical, the other half time is spent going over the plan of care with the patient and implementing plan of care. I discussed the plan of care with my attending, Dr. Person. He is in agreement. EMRE BOOTHE NP CC: Dr. Aakash Alonso; Dr. Solares. * [id number]/[facility] #: [id number] CORRINE
[2016-12-14] MEDS: Insulin LISPRO* 1 UNITS UNIT SUBCUT SCH (17:26)
[2016-12-14] MEDS: Ferrous Sulfate TAB* 325 MG PO SCH (21:19)
[2016-12-14] MEDS: Metoprolol Succinate XL TAB* 50 MG PO SCH (21:20)
[2016-12-15 05:59] LABS: Hematocrit 38 % (42-52); Hemoglobin 12.9 g/dl (14.0-18.0); Mean Corpuscular HGB Conc 34 g/dl (31-36); Mean Corpuscular Hemoglobin 26 pg (27-31); Mean Corpuscular Volume 76 fL (80-94); Mean Platelet Volume 8 um3 (7.4-10.4); Red Blood Count 5.02 10^6/ul (4.0-5.4); Red Cell Distribution Width 15 % (10.5-15); White Blood Count 6.5 10^3/ul (3.5-10.8)
[2016-12-15 06:17] LABS: Calcium 9.4 mg/dL (8.6-10.3); EGFR African American 88.1 (>60); EGFR Non-African American 68.5 (>60); Potassium 4.1 mmol/L (3.5-5.0)
[2016-12-15] MEDS: Diltiazem CD CAP* 240 MG PO SCH (07:31)
[2016-12-15] MEDS: Dronedarone TAB* 400 MG PO SCH (07:31)
[2016-12-15] MEDS: Ferrous Sulfate TAB* 325 MG PO SCH (07:32)
[2016-12-15] MEDS: Metoprolol Succinate XL TAB* 50 MG PO SCH (07:32)
[2016-12-15] MEDS: Insulin LISPRO* 1 UNITS UNIT SUBCUT SCH ×2 (08:41→12:27)
[2016-12-15] MEDS ORDERED: Valsartan TAB* 160 MG PO SCH (09:00)
[2016-12-15] MEDS ORDERED: Finasteride TAB* 5 MG PO SCH (09:00)
[2016-12-15] MEDS ORDERED: Spiriva Inhaler DEVICE* 1 EACH DEVICE INH ONE (09:00)
[2016-12-15] MEDS ORDERED: Atorvastatin* 20 MG TAB PO SCH (09:00)
[2016-12-15] MEDS ORDERED: Umeclidin/Vilant 62.5 MDI 62.5/25 mcg 14 INH ELLIPTA DEVICE INH SCH (09:00)
[2016-12-15] MEDS ORDERED: Magnesium Oxide TAB* 400 MG PO SCH (09:00)
[2016-12-15] MEDS ORDERED: Losartan TAB* 25 MG PO SCH (09:00)
[2016-12-15] MEDS ORDERED: Tiotropium CAP.INH* CAP.INH/18 MCG (USE ORDER SET !) INH SCH (09:00)
[2016-12-15] MEDS ORDERED: Rivaroxaban TAB(*) 20 MG TAB PO SCH (09:00)
[2016-12-15] MEDS ORDERED: Montelukast Sodium TAB* 10 MG PO SCH (09:00)
[2016-12-15] MEDS ORDERED: Omeprazole CAP* 20 MG PO SCH (09:00)
[2016-12-15] MEDS ORDERED: Aspirin EC Low Dose* 81 MG TAB.EC PO SCH (09:00)
--- NOTE | 2016-12-15 10:11 | PN ---
Subjective Date of Service: 12/15/16 - CC: palptations Interval History: Per patient no recurrence of palpatations, feeling well and at baseline. He is wheezy, when I asked him about this he states this started with one of his breathing medications here. Medications Active Medications: Acetaminophen (Tylenol Tab*) 650 mg PO Q4H PRN PRN Reason: FEVER/PAIN Last Admin: 12/14/16 23:15 Dose: 650 mg Albuterol (Ventolin 2.5 Mg/3 Ml Neb.Marilyn*) 2.5 mg INH Q2H PRN PRN Reason: SOB/WHEEZING Aspirin (Aspirin Ec Low Dose*) 81 mg PO DAILY [facility] Last Admin: 12/15/16 07:31 Dose: 81 mg Atorvastatin Calcium (Lipitor*) 60 mg PO DAILY [facility] Last Admin: 12/15/16 07:32 Dose: 60 mg Dextrose (D50w Syringe 50 Ml*) 12.5 gm IV PUSH .FOR FS < 60 - SS PRN PRN Reason: FS < 60 Diltiazem HCl (Cardizem Cd Cap*) 480 mg PO DAILY [facility] Last Admin: 12/15/16 07:31 Dose: 480 mg Dronedarone (Multaq Tab*) 400 mg PO BID [facility] Last Admin: 12/15/16 07:31 Dose: 400 mg Ferrous Sulfate (Ferrous Sulfate Tab*) 325 mg PO BID [facility] Last Admin: 12/15/16 07:32 Dose: 325 mg Finasteride (Proscar Tab*) 5 mg PO DAILY [facility] Last Admin: 12/15/16 07:31 Dose: 5 mg Insulin Human Lispro (Humalog*) 0 units SUBCUT AC [facility] PRN Reason: Protocol Last Admin: 12/15/16 08:41 Dose: 2 unit Magnesium Oxide (Magox 400 Tab*) 800 mg PO DAILY [facility] Last Admin: 12/15/16 07:31 Dose: 800 mg Metoprolol Succinate (Toprol Xl Tab*) 50 mg PO BID [facility] Last Admin: 12/15/16 07:32 Dose: 50 mg Mometasone Furoate/Formoterol Fumar (Dulera 100/5 Mdi*) 2 puff INH BID [facility] Last Admin: 12/14/16 20:00 Dose: 2 puff Montelukast Sodium (Singulair Tab*) 10 mg PO DAILY [facility] Omeprazole (Prilosec Cap*) 20 mg PO DAILY [facility] Last Admin: 12/15/16 07:31 Dose: 20 mg Ondansetron HCl (Zofran Inj*) 4 mg IV Q4H PRN PRN Reason: NAUSEA/VOMITING Rivaroxaban (Xarelto (*)) 20 mg PO DAILY [facility] Last Admin: 12/15/16 07:31 Dose: 20 mg Tiotropium [place] (Spiriva Cap.Inh*) 1 cap INH DAILY [facility] Valsartan (Diovan Tab*) 160 mg PO DAILY [facility] Last Admin: 12/15/16 07:31 Dose: 160 mg Objective Vital Signs: Temp Pulse Resp BP Pulse Ox 97.8 F 61 16 114/61 97 12/15/16 03:34 12/15/16 03:34 12/15/16 03:34 12/15/16 03:34 12/15/16 03:34 Oxygen Devices in Use Now: None Appearance: sleeping flat, comfortable, easily aroused, in no distress. Eyes: No Scleral Icterus, PERRLA Ears/Nose/Mouth/Throat: Clear Oropharnyx, Mucous Membranes Moist Neck: NL Appearance and Movements; NL JVP, Trachea Midline Respiratory: Symmetrical Chest Expansion and Respiratory Effort, - - diffuse scattered wheezing, inspiratory and expiratory, anteriorly and posteriorly. Cardiovascular: NL Sounds; No Murmurs; No JVD, RRR, - - trace to 1+ edema, pacemaker site intact Abdominal: NL Sounds; No Tenderness; No Distention Extremities: No Clubbing, Cyanosis Skin: No Rash or Ulcers Neurological: Alert and Oriented x 3 Laboratory Results: 12/15/16 04:52 12/15/16 04:52 12/14/16 12/14/16 12:20 14:42 Troponin I 0.01 0.01 Diagnostic Imaging: Diagnostic Imaging: Cath 2010, proximal LAD stented and he is on medical management for 60% to 70% occlusion in an OM-2 branch and a 50% to 55% occlusion in the right coronary artery. He underwent stenting in 2012 for severe stenosis of his proximal stent, and his OM and RCA disease was stable. TTE 07/2015: LVEF 65-70%, normal LA size, no significant valvular abnormalities EKG Data: ekg 11/29/2016: AFib rate 105 bpm, RBBB with non-sepcific ST/T changes improved ST-depresion v4- v6 from 1/18 Monitor: NSR TTE 12/12/2016: Technically difficult study, LVEF 55-60%, no significant valvular abnormalities noted, unable to estimate PASP Assessment/Plan Mr. Bautista is a 71-year-old man with COPD, CAD s/p PCI, paroxysmal atrial fibrillation. Recent decrease in calcium channel camilo due to LE edema, awoke in afib again. Currently back on the higher dose of diltiazem and Multaq resumed, the patient is maintaining sinus rhythm. Small bump in troponin, 0.05. Wheezing since admission. Points of Discussion: Atrial fibrillation: Continue higher dose of diltiazem and Multaq. Continue Xarelto. FUTURE: as the patient has a pacemaker and is at risk for recurrent afib, consider EP evaluation for AV margoth ablation which will prevent tachycardic response when in afib. CAD/CP: CP likely due to Afib (+CAD), recent ischemic work up and consultation with interventional cardiology, continue with medical management. COPD: Wheezing and contributing to his recurrent afib. Management via hospitalists. Continue beta camilo for now as per Dr. Solares's notes no wheezing on recent office exam on metoprolol, but could reconsider this if pulmonary/ internal medicine wishes to decrease or stop (additional options would include converting to atenalol). ? JEANNINE as awoke with the rhythm, out patient f/u issue. Outpatient follow up with Dr. Solares and/or Dr. Stone.
[2016-12-15] MEDS: Mometasone/Formoter 100/5 MDI INH SCH (10:45)
--- NOTE | 2016-12-15 13:36 | PN ---
Subjective Date of Service: 12/15/16 Interval History: No more palpitations or chest pain. Objective Active Medications: Acetaminophen (Tylenol Tab*) 650 mg PO Q4H PRN PRN Reason: FEVER/PAIN Last Admin: 12/14/16 23:15 Dose: 650 mg Albuterol (Ventolin 2.5 Mg/3 Ml Neb.Marilyn*) 2.5 mg INH Q2H PRN PRN Reason: SOB/WHEEZING Aspirin (Aspirin Ec Low Dose*) 81 mg PO DAILY [facility] Last Admin: 12/15/16 07:31 Dose: 81 mg Atorvastatin Calcium (Lipitor*) 60 mg PO DAILY [facility] Last Admin: 12/15/16 07:32 Dose: 60 mg Dextrose (D50w Syringe 50 Ml*) 12.5 gm IV PUSH .FOR FS < 60 - SS PRN PRN Reason: FS < 60 Diltiazem HCl (Cardizem Cd Cap*) 480 mg PO DAILY [facility] Last Admin: 12/15/16 07:31 Dose: 480 mg Dronedarone (Multaq Tab*) 400 mg PO BID [facility] Last Admin: 12/15/16 07:31 Dose: 400 mg Ferrous Sulfate (Ferrous Sulfate Tab*) 325 mg PO BID [facility] Last Admin: 12/15/16 07:32 Dose: 325 mg Finasteride (Proscar Tab*) 5 mg PO DAILY [facility] Last Admin: 12/15/16 07:31 Dose: 5 mg Glipizide (Glucotrol Tab*) 5 mg PO 0800,1700 [facility] Insulin Human Lispro (Humalog*) 0 units SUBCUT AC [facility] PRN Reason: Protocol Last Admin: 12/15/16 12:27 Dose: 6 unit Magnesium Oxide (Magox 400 Tab*) 800 mg PO DAILY [facility] Last Admin: 12/15/16 07:31 Dose: 800 mg Metoprolol Succinate (Toprol Xl Tab*) 50 mg PO BID [facility] Last Admin: 12/15/16 07:32 Dose: 50 mg Mometasone Furoate/Formoterol Fumar (Dulera 100/5 Mdi*) 2 puff INH BID [facility] Last Admin: 12/15/16 10:45 Dose: Not Given Montelukast Sodium (Singulair Tab*) 10 mg PO DAILY [facility] Last Admin: 12/15/16 11:20 Dose: Not Given Omeprazole (Prilosec Cap*) 20 mg PO DAILY [facility] Last Admin: 12/15/16 07:31 Dose: 20 mg Ondansetron HCl (Zofran Inj*) 4 mg IV Q4H PRN PRN Reason: NAUSEA/VOMITING Rivaroxaban (Xarelto (*)) 20 mg PO DAILY [facility] Last Admin: 12/15/16 07:31 Dose: 20 mg Tiotropium [place] (Spiriva Cap.Inh*) 1 cap INH DAILY [facility] Last Admin: 12/15/16 10:45 Dose: Not Given Valsartan (Diovan Tab*) 160 mg PO DAILY [facility] Last Admin: 12/15/16 07:31 Dose: 160 mg Vital Signs 12/14/16 12/14/16 12/14/16 15:58 16:05 16:37 Temperature 98.3 F Pulse Rate 74 Respiratory 16 16 Rate Blood Pressure 133/74 (mmHg) O2 Sat by Pulse 97 98 Oximetry 12/14/16 12/14/16 12/14/16 19:57 20:00 23:30 Temperature 98.0 F 99.4 F Pulse Rate 64 67 62 Respiratory 16 16 16 Rate Blood Pressure 135/57 133/67 (mmHg) O2 Sat by Pulse 98 94 94 Oximetry 12/15/16 12/15/16 12/15/16 00:00 03:25 03:34 Temperature 97.8 F 97.8 F Pulse Rate 60 61 Respiratory 16 16 Rate Blood Pressure 123/63 114/61 (mmHg) O2 Sat by Pulse 94 95 97 Oximetry 12/15/16 12/15/16 12/15/16 07:37 08:00 10:48 Temperature 97.3 F Pulse Rate 62 62 Respiratory 16 16 Rate Blood Pressure 133/69 (mmHg) O2 Sat by Pulse 97 97 96 Oximetry Oxygen Devices in Use Now: None Appearance: Alert, partly up in bed. In good spirits. Looks comfortable. Eyes: No Scleral Icterus Ears/Nose/Mouth/Throat: Clear Oropharnyx, Mucous Membranes Moist Neck: NL Appearance and Movements; NL JVP, No Thyroid Enlargement, Masses Respiratory: Symmetrical Chest Expansion and Respiratory Effort, Clear to Auscultation, Clear to Percussion Cardiovascular: NL Sounds; No Murmurs; No JVD, RRR, No Edema, - Extremities: No Edema, No Clubbing, Cyanosis, - Skin: No Rash or Ulcers, No Nodules or Sclerosis, - Neurological: Alert and Oriented x 3, NL Sensation Result Diagrams: 12/15/16 04:52 12/15/16 04:52 Additional Lab and Data: Lab Results 12/14/16 Range/Units 07:05 WBC 8.8 (3.5-10.8) 10^3/ul RBC 5.28 (4.0-5.4) 10^6/ul Hgb 13.6 L (14.0-18.0) g/dl Hct 40 L (42-52) % MCV 76 L (80-94) fL MCH 26 L (27-31) pg MCHC 34 (31-36) g/dl RDW 15 (10.5-15) % Plt Count 161 (150-450) 10^3/ul MPV 8 (7.4-10.4) um3 Assess/Plan/Problems-Billing Assessment: - Patient Problems (1) Atrial fibrillation with RVR Current Visit: No Status: Acute Code(s): I48.91 - UNSPECIFIED ATRIAL FIBRILLATION SNOMED Code(s): 150880022103373 Comment: Converted to NSR. Continue dronedarone, diltiazem [address] Stone, Dr. Alonso. (2) Type 2 diabetes mellitus Current Visit: No Status: Acute Priority: Medium Comment: Continue glipizide 5 mg bid at home. Pt states he has a glucometer and test strips at home. Pt instructed to check his FS bid. (3) COPD exacerbation Current Visit: No Status: Acute Priority: Medium Onset Date: 03/22/15 Code(s): J44.1 - CHRONIC OBSTRUCTIVE PULMONARY DISEASE W (ACUTE) EXACERBATION SNOMED Code(s): 002529354 Comment: Patient feels he is at his baseline. Continue Anoro, Symbicort, tiotropium, montelukast at home. (4) CAD (coronary artery disease) Current Visit: No Status: Chronic Priority: Low Code(s): I25.10 - ATHSCL HEART DISEASE OF [place] CORONARY ARTERY W/O ANG PCTRS SNOMED Code(s): 25609013 Comment: Continue ASA, BB at home.
[2016-12-15 13:40] VITALS: BP 118/52
[2016-12-15] MEDS ORDERED: glipiZIDE TAB* 5 MG PO SCH (17:00)
--- NOTE | 2016-12-16 01:21 | DS ---
CC: Dr. Stone; Dr. Alonso, [place] DISCHARGE SUMMARY: DATE OF ADMISSION: DATE OF DISCHARGE: 12/15/16 HISTORY: This 71-year-old man presented with chest pain and palpitations. He had atrial fibrillation with rapid ventricular response. He has had this before and was on anticoagulation for this. He was given dronedarone. His diltiazem dose, which was just recently been decreased, was increased. He converted to normal sinus rhythm. He felt much better. He had a little bit of wheezing, but this also resolved. The patient will follow up with Dr. Stone and Dr. Alonso. His diabetes was treated. He has a glucometer and test strips at home. He was instructed to check his blood sugar twice a day and write the results down and bring to his visit with Dr. Alonso. I note his A1c was 7.1%. FINAL DIAGNOSES: 1. Atrial fibrillation. 2. Coronary artery disease. 3. Diabetes. 4. Chronic obstructive pulmonary disease. DISCHARGE MEDICATIONS: 1. Dronedarone 400 mg b.i.d. 2. Glipizide 5 mg daily at 8 a.m. and 5 p.m. 3. Omeprazole 20 mg daily. 4. Ferrous sulfate 325 mg b.i.d. 5. Finasteride 5 mg daily. 6. Budesonide/formoterol 80/4.5 two puffs b.i.d. 7. Atorvastatin 60 mg daily. 8. Aspirin 81 mg daily. 9. Montelukast 10 mg daily. 10. Magnesium oxide 800 mg daily. 11. Metoprolol 50 mg b.i.d. 12. Nitroglycerin 0.4 mg sublingual every 5 minutes p.r.n. 13. Rivaroxaban 20 mg daily. 14. Tiotropium 1 capsule daily. 15. Anoro 1 puff daily. 16. Valsartan 160 mg daily. 17. Diltiazem 240 mg b.i.d. [id number]/[facility] #: [id number] [facility]
== END 2016-12-15 14:45 | disposition home or self-care (01) ==
LOC: ED 06:55 → MEDTELE 08:16
PROVIDERS: ADMIT Internal Medicine; ATTEND Internal Medicine
DX: R07.9 Chest pain, unspecified (principal); I48.91 Unspecified atrial fibrillation; R00.2 Palpitations; I25.10 Atherosclerotic heart disease of native coronary artery without angina pectoris; J44.9 Chronic obstructive pulmonary disease, unspecified; I10 Essential (primary) hypertension; N40.0 Benign prostatic hyperplasia without lower urinary tract symptoms; E11.9 Type 2 diabetes mellitus without complications; G47.33 Obstructive sleep apnea (adult) (pediatric); Z95.0 Presence of cardiac pacemaker; Z79.01 Long term (current) use of anticoagulants; Z79.82 Long term (current) use of aspirin; Z88.5 Allergy status to narcotic agent; Z88.0 Allergy status to penicillin; Z87.891 Personal history of nicotine dependence; Z99.81 Dependence on supplemental oxygen
CPT/HCPCS: 36415; 71020; 80048; 83036; 84484; 85025; 85027; 93005; 94640; 94760; 96374; 99284; A9270-GY; G0378

== ENCOUNTER 2017-01-05 14:49 | Observation (INO) | payer MEDICARE ==
[2017-01-05] MEDS ORDERED: Levofloxacin 750 MG IVPREMIX(* 750 MG/150 ML BAG IVPB ONE (16:08)
[2017-01-05] MEDS ORDERED: cefTRIAXone(*) 1 GM in NS 0.9% 50 ML* 50 ML IVPB ONE (16:08)
[2017-01-05] MEDS ORDERED: methylPREDNISolone 125 MG* 2 ML VIAL IV ONE (16:08)
[2017-01-05] MEDS ORDERED: Albuterol/Ipratropium NEB.SOL* Albuterol 2.5 MG/Ipratropium 0.5 MG 3 ML INH ONE (16:08)
[2017-01-05] MEDS ORDERED: NS 0.9% 1000 ML* 1,000 ML IV SCH ×2 (16:15→19:57)
[2017-01-05 16:25] LABS: Hematocrit 36 % (42-52); Hemoglobin 11.9 g/dl (14.0-18.0); Mean Corpuscular HGB Conc 33 g/dl (31-36); Mean Corpuscular Hemoglobin 26 pg (27-31); Mean Corpuscular Volume 80 fL (80-94); Mean Platelet Volume 7 um3 (7.4-10.4); Red Blood Count 4.51 10^6/ul (4.0-5.4); Red Cell Distribution Width 21 % (10.5-15); White Blood Count 9.7 10^3/ul (3.5-10.8)
--- NOTE | 2017-01-05 16:34 | RAD ---
INDICATION: Cough. Short of breath. COMPARISON: December 14, 2016 TECHNIQUE: An AP portable view obtained at 1610 hours is submitted. FINDINGS: Bones/Soft Tissues: There are no acute bony findings. There is a left-sided cardiac pacemaker. Cardiomediastinal: The cardiomediastinal silhouette is normal. Lungs: There are no infiltrates. There is mild increased prominence of interstitium perhaps related to mild interstitial edema Pleura: There are no pleural effusions. Other: None IMPRESSION: SUSPECT MILD INTERSTITIAL EDEMA.
[2017-01-05 16:38] LABS: Albumin 3.7 g/dL (3.2-5.2); BUN/Creatinine Ratio 13.9 (8-20); C Reactive Protein 8.81 mg/L (< 5.00); Calcium 9.6 mg/dL (8.6-10.3); EGFR African American 86.2 (>60); Globulin 3.3 g/dL (2-4); Magnesium 2.1 mg/dL (1.9-2.7); Potassium 4.5 mmol/L (3.5-5.0); Total Bilirubin 0.7 mg/dL (0.2-1.0)
[2017-01-05 16:40] LABS: Troponin I 0.01 ng/mL (<0.04)
[2017-01-05 16:49] LABS: TSH (Thyroid Stimulating Horm) 0.67 mcIU/mL (0.34-5.60)
--- NOTE | 2017-01-05 19:28 | ED ---
Hector Hewitt Billy, scribed for Kaz Mayen MD on 01/05/17 at 1707 . Shortness of Breath - HPI Summary HPI Summary: 71 year old male arrived to [facility] complaining of shortness of breath beginning five days ago. There is SOB at rest, but it is worse with activity and exertion. He has been experiencing wheezing, headache, subjective fever, and a productive cough (yellow sputum) as well. Chronic pedal edema, no change from normal. He denies any diarrhea. The patient saw his PCP three days ago, and began antibiotics (cefuroxime) for "congestion" two days ago; he was unable to further elaborate on his PCP's diagnosis. He is unsure if he has been checked for the flu. He has a PMHx of COPD, emphysema, [place], CHF, bilateral pedal edema, bronchitis, AFib, DM, and HLD. No anticoagulant use. - History of Current Complaint Chief Complaint: EDShortnessOfBreath Time Seen by Provider: 01/05/17 15:48 Hx Obtained From: Patient Onset/Duration: Gradual Onset, Lasting Days - onset five days ago, Still Present Timing: Constant Current Severity: Moderate Dyspnea At: Rest Aggrevating Factors: Movement Alleviating Factors: Nothing Associated Signs & Symptoms: Cough (Productive) - yellow phlegm, Wheezing, Fever - Allergy/Home Medications Allergies/Adverse Reactions: Allergies Allergy/AdvReac Type Severity Reaction Status Date / Time Bupropion [From Wellbutrin] Allergy Intermediate Dizziness Verified 01/05/17 14: 51 Morphine Allergy Intermediate See Comment Verified 01/05/17 14:51 Penicillins Allergy Intermediate Swelling Verified 01/05/17 14:51 Home Medications: Home Medications Cefuroxime Axetil [Ceftin] 500 mg PO BID 01/05/17 [History Confirmed 01/05/17] Diltiazem CD CAP* [Cardizem CD CAP*] 2 cap PO DAILY WITH MEAL 01/05/17 [History Confirmed 01/05/17] PMH/Surg Hx/FS Hx/Imm Hx Endocrine/Hematology History: Reports: Hx Anticoagulant Therapy, Hx Diabetes, Hx Anemia Cardiovascular History: Reports: Hx Angina, Hx Angioplasty, Hx Atrial Fibrillation, Hx Auto Implanted Cardiovert Defib - November 2014, Hx Cardiac Arrest - 2014, Hx Coronary Artery Disease, Hx Hypercholesterolemia, Hx Hypertension, Hx Myocardial Infarction - [place], Hx Pacemaker/ICD, Other Cardiovascular Problems/Disorders - cardiac stent 2012 Denies: Hx Congestive Heart Failure, Hx Deep Vein Thrombosis, Hx Peripheral Vascular Disease Respiratory History: Reports: Hx Chronic Bronchitis, Hx Chronic Obstructive Pulmonary Disease (COPD), Other Respiratory Problems/Disorders - 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, emphysema, uses inhaler Denies: Hx Asthma GI History: Reports: Hx Diverticulosis, Hx Gastroesophageal Reflux Disease, Hx Gastrointestinal Bleed, Hx Obstructive Bowel - twisted bowel that required surgery 1996, Other GI Disorders - chronic stomach pains and bloating History: Reports: Hx Benign Prostatic Hyperplasia Musculoskeletal History: Reports: Other Musculoskeletal History - bilateral pedal edema Denies: Hx Arthritis, Hx Osteoporosis Sensory History: Reports: Hx Contacts or Glasses, Hx Vision Problem - Cant see distance. Denies: Hx Eye Injury Opthamlomology History: Reports: Hx Contacts or Glasses, Hx Vision Problem - Cant see distance. Denies: Hx Eye Injury Neurological History: Denies: Hx Headaches, Hx Seizures, Hx Transient Ischemic Attacks (TIA) Psychiatric History: Reports: Hx Anxiety - Cancer History Cancer Type, Location and Year: "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 Left lung removal of mass. 1 cardiac stent in 2011 Hx Anesthesia Reactions: No Infectious Disease History: No Infectious Disease History: Denies: Traveled Outside the [place] in Last 30 Days - Family History Known Family History: Negative: Cardiac Disease - Social History Alcohol Use: None Substance Use Type: Reports: None Hx Tobacco Use: Yes Smoking Status (MU): Former Smoker Type: Cigarettes Have You Smoked in the Last Year: No Review of Systems Positive: Fever - subjective Positive: Shortness Of Breath, Cough - productive cough with yellow sputum Negative: Abdominal Pain, Diarrhea Positive: Edema - bilateral pedal edema, chronic Positive: Headache All Other Systems Reviewed And Are Negative: Yes Physical Exam Triage Information Reviewed: Yes Vital Signs On Initial Exam: Initial Vitals Temp Pulse Resp BP Pulse Ox 98.7 F 73 20 124/89 93 01/05/17 14:51 01/05/17 14:51 01/05/17 14:51 01/05/17 14:51 01/05/17 14:51 Vital Signs Reviewed: Yes Appearance: Positive: Well-Appearing, Pain Distress - mild to moderate pain distress Skin: Positive: Warm, Skin Color Reflects Adequate Perfusion, Dry Head/Face: Positive: Normal Head/Face Inspection Eyes: Positive: EOMI, WILLIAM ENT: Positive: Normal ENT inspection Neck: Positive: Supple, Nontender Respiratory/Lung Sounds: Positive: Rhonchi - bilaterally, Wheezes - bilaterally , Other - Mild to moderate respiratory distress. Cardiovascular: Positive: RRR, Leg Edema Left - chronic bilateral pedal edema, Leg Edema Right - chronic bilateral pedal edema Abdomen Description: Positive: Nontender, Soft Bowel Sounds: Positive: Present Musculoskeletal: Positive: Strength/ROM Intact, Edema Left - bilateral pedal edema, Edema Right - bilateral pedal edema Neurological: Positive: Normal, Sensory/Motor Intact, Alert, Oriented to Person Place, Time Psychiatric: Positive: Normal, Affect/Mood Appropriate Diagnostics - Vital Signs Vital Signs Temp Pulse Resp BP Pulse Ox 01/05/17 16:29 60 15 92 01/05/17 14:51 98.7 F 73 20 124/89 93 - Laboratory Lab Results: Lab Results 01/05/17 01/05/17 01/05/17 Range/Units 15:54 15:54 15:54 WBC 9.7 (3.5-10.8) 10^3/ul RBC 4.51 (4.0-5.4) 10^6/ul Hgb 11.9 L (14.0-18.0) g/dl Hct 36 L (42-52) % MCV 80 (80-94) fL MCH 26 L (27-31) pg MCHC 33 (31-36) g/dl RDW 21 H (10.5-15) % Plt Count 269 (150-450) 10^3/ul MPV 7 L (7.4-10.4) um3 Neut % (Auto) 66.6 (38-83) % Lymph % (Auto) 16.3 L (25-47) % [place] % (Auto) 12.2 H (1-9) % Eos % (Auto) 4.2 (0-6) % Baso % (Auto) 0.7 (0-2) % Absolute Neuts (auto) 6.5 (1.5-7.7) 10^3/ul Absolute Lymphs (auto) 1.6 (1.0-4.8) 10^3/ul Absolute Monos (auto) 1.2 H (0-0.8) 10^3/ul Absolute Eos (auto) 0.4 (0-0.6) 10^3/ul Absolute Basos (auto) 0.1 (0-0.2) 10^3/ul Absolute Nucleated RBC 0 10^3/ul Nucleated RBC % 0 INR (Anticoag Therapy) 1.23 H (0.89-1.11) APTT 30.5 (26.0-36.3) seconds Sodium (133-145) mmol/L Potassium (3.5-5.0) mmol/L Chloride (101-111) mmol/L Carbon Dioxide (22-32) mmol/L Anion Gap (2-11) mmol/L BUN (6-24) mg/dL Creatinine (0.67-1.17) mg/dL Est GFR ( Amer) (>60) Est GFR (Non-Af Amer) (>60) BUN/Creatinine Ratio (8-20) Glucose (70-100) mg/dL Lactic Acid (0.5-2.0) mmol/L Calcium (8.6-10.3) mg/dL Magnesium (1.9-2.7) mg/dL Total Bilirubin (0.2-1.0) mg/dL AST (13-39) U/L ALT (7-52) U/L Alkaline Phosphatase (34-104) U/L Total Creatine Kinase (10-223) U/L CK-MB (CK-2) (0.6-6.3) ng/mL Troponin I (<0.04) ng/mL C-Reactive Protein (< 5.00) mg/L B-Natriuretic Peptide 98 ( - 100) pg/mL Total Protein (6.4-8.9) g/dL Albumin (3.2-5.2) g/dL Globulin (2-4) g/dL Albumin/Globulin Ratio (1-3) Lipase (11.0-82.0) U/L TSH (0.34-5.60) mcIU/mL 01/05/17 01/05/17 Range/Units 15:54 15:54 WBC (3.5-10.8) 10^3/ul RBC (4.0-5.4) 10^6/ul Hgb (14.0-18.0) g/dl Hct (42-52) % MCV (80-94) fL MCH (27-31) pg MCHC (31-36) g/dl RDW (10.5-15) % Plt Count (150-450) 10^3/ul MPV (7.4-10.4) um3 Neut % (Auto) (38-83) % Lymph % (Auto) (25-47) % [place] % (Auto) (1-9) % Eos % (Auto) (0-6) % Baso % (Auto) (0-2) % Absolute Neuts (auto) (1.5-7.7) 10^3/ul Absolute Lymphs (auto) (1.0-4.8) 10^3/ul Absolute Monos (auto) (0-0.8) 10^3/ul Absolute Eos (auto) (0-0.6) 10^3/ul Absolute Basos (auto) (0-0.2) 10^3/ul Absolute Nucleated RBC 10^3/ul Nucleated RBC % INR (Anticoag Therapy) (0.89-1.11) APTT (26.0-36.3) seconds Sodium 135 (133-145) mmol/L Potassium 4.5 (3.5-5.0) mmol/L Chloride 99 L (101-111) mmol/L Carbon Dioxide 30 (22-32) mmol/L Anion Gap 6 (2-11) mmol/L BUN 15 (6-24) mg/dL Creatinine 1.08 (0.67-1.17) mg/dL Est GFR ( Amer) 86.2 (>60) Est GFR (Non-Af Amer) 67.0 (>60) BUN/Creatinine Ratio 13.9 (8-20) Glucose 89 (70-100) mg/dL Lactic Acid 0.9 (0.5-2.0) mmol/L Calcium 9.6 (8.6-10.3) mg/dL Magnesium 2.1 (1.9-2.7) mg/dL Total Bilirubin 0.70 (0.2-1.0) mg/dL AST 20 (13-39) U/L ALT 13 (7-52) U/L Alkaline Phosphatase 51 (34-104) U/L Total Creatine Kinase 38 (10-223) U/L CK-MB (CK-2) 1.1 (0.6-6.3) ng/mL Troponin I 0.01 (<0.04) ng/mL C-Reactive Protein 8.81 H (< 5.00) mg/L B-Natriuretic Peptide ( - 100) pg/mL Total Protein 7.0 (6.4-8.9) g/dL Albumin 3.7 (3.2-5.2) g/dL Globulin 3.3 (2-4) g/dL Albumin/Globulin Ratio 1.1 (1-3) Lipase 24 (11.0-82.0) U/L TSH 0.67 (0.34-5.60) mcIU/mL Result Diagrams: 01/05/17 15:54 01/05/17 15:54 Lab Statement: Any lab studies that have been ordered have been reviewed, and results considered in the medical decision making process. - Radiology CXR Radiology Interpretation Completed By: Radiologist - IMPRESSION: SUSPECT MILD INTERSTITIAL EDEMA. - EKG 1452 EKG Interpretation: NSR 65 bpm, LBBB, left atrial enlargement, no ectopy Course/Dx - Course Assessment/Plan: ADMIT HOSPITALIST STABLE - Diagnoses Provider Diagnoses: COPD (chronic obstructive pulmonary disease) with acute bronchitis - Physician Notifications Discussed Care of Patient With: Hospitalist @ 1800 accepted admission. Discharge - Discharge Plan Condition: Stable Disposition: ADMITTED TO [facility] Referrals: Aakash Alonso MD [Primary Care Provider] - The documentation as recorded by the Hector russ Billy accurately reflects the service I personally performed and the decisions made by me, Kaz Mayen MD.
[2017-01-05] MEDS ORDERED: Nitroglycerin TAB 0.4 MG* 0.4 MG TAB SL PRN (19:47)
[2017-01-05] MEDS ORDERED: Albuterol/Ipratropium NEB.SOL* Albuterol 2.5 MG/Ipratropium 0.5 MG 3 ML INH PRN (19:56)
[2017-01-05] MEDS ORDERED: Enoxaparin(*) 40 MG/0.4 ML SYR SUBCUT SCH (20:00)
--- NOTE | 2017-01-05 20:05 | ADMNOTE ---
Subjective Date of Service: 01/05/17 Interval History: ' ADMISSION HISTORY AND PHYSICAL EXAM: Allergies Allergy/AdvReac Type Severity Reaction Status Date / Time Bupropion [From Wellbutrin] Allergy Intermediate Dizziness Verified 01/05/17 14: 51 Morphine Allergy Intermediate See Comment Verified 01/05/17 14:51 Penicillins Allergy Intermediate Swelling Verified 01/05/17 14:51 Home Medications Medication Instructions Recorded Confirmed Type Ferrous Sulfate TAB* 325 mg PO BID 03/22/15 01/05/17 History Atorvastatin* [Lipitor 20 MG*] 60 mg PO DAILY 11/22/16 01/05/17 History Budesonide/Formote 80/4.5(NF) 2 puff INH BID 11/22/16 01/05/17 History [Symbicort 80/4.5 (NF)] Finasteride TAB* [Proscar TAB*] 5 mg PO DAILY 11/22/16 01/05/17 History Aspirin EC Low Dose* [Ecotrin EC 81 mg PO DAILY tab.ec 11/23/16 01/05/17 Rx Low Dose*] Magnesium Oxide 800 mg PO DAILY 11/28/16 01/05/17 History Metoprolol Succinate XL TAB* 50 mg PO BID #60 tab.xl 11/30/16 01/05/17 Rx [Toprol XL TAB*] Nitroglycerin TAB 0.4 MG* 0.4 mg SL Q5M PRN #0 tab 11/30/16 01/05/17 Rx Tiotropium CAP.INH* [Spiriva 1 cap.inh INH DAILY 12/14/16 01/05/17 History CAP.INH*] Valsartan 160 mg PO DAILY 12/14/16 01/05/17 History Dronedarone TAB* [Multaq TAB*] 400 mg PO BID #60 tab 12/15/16 01/05/17 Rx glipiZIDE TAB* [Glucotrol TAB*] 5 mg PO 0800,1700 #60 tab 12/15/16 01/05/17 Rx Cefuroxime Axetil [Ceftin] 500 mg PO BID 01/05/17 01/05/17 History Diltiazem CD CAP* [Cardizem CD 2 cap PO DAILY WITH MEAL 01/05/17 01/05/17 History CAP*] HPI: The patient had increased cough and SOB for about a week. He was prescribed cefuroxime but did not improve. No chest pain. No sweats or chills. Appetite OK. Family History: Findings - Father had [place], mother had lung cancer Social History: Findings - Quit smoking 2007. No alcohol abuse. Lives with his who is his SDM. Past Medical History: Findings - PAF, resolved with dronaderone. Pacer for tachy-georgina. HTN, BPH, DM. JEANNINE, only uses hs O2. Review of Systems - Measurements Intake and Output: Intake and Output Last 24 Hours 01/03/17 01/04/17 01/05/17 01/06/17 06:59 06:59 06:59 06:59 Weight 174 lb - Review of Systems Constitutional Symptoms: Negative: Weight Gain, Weight Loss, Weakness, Fatigue, Fever, Night Sweats, Unexplained Falls, Other Dermatology: Positive: Normal HEENT: Positive: Normal Eyes: Positive: Normal Thyroid: Positive: Normal Pulmonary: Positive: Cough, Shortness of Breath, COPD Cardiology: Positive: Normal Gastroenterology: Positive: Normal Genital - Urinary: Positive: Normal Musculoskeletal: Negative: Joint Pain, Joint Stiffness, Arthritis, Osteoporosis, Low Back Pain , Sciatica, Joint Deformities, Kyphoscoliosis, Other Endocrinology: Positive: Diabetes Mellitus Hematologic/Lymphatic: Positive: Anemia Neurology: Positive: Normal Psychiatry: Positive: Normal Allergic/Immunologic: Negative: Hx Anaphylaxis, Hx Angioedema, Hx Environmental, Hx Seasonal, Athsma, Hx HIV, Immunocompromise, Swollen Glands LymphNodes, Other Objective Active Medications: Albuterol/Ipratropium (Duoneb Neb.Marilyn*) 1 neb INH Q4H PRN PRN Reason: SOB/WHEEZING Aspirin (Aspirin Ec Low Dose*) 81 mg PO DAILY [facility] Atorvastatin Calcium (Lipitor*) 60 mg PO DAILY [facility] Budesonide/Formoterol Fumarate (Symbicort 80/4.5 (Nf)) aer INH BID [facility]ANNA Diltiazem HCl (Cardizem Cd Cap*) 480 mg PO DAILY WITH MEAL [facility] Dronedarone (Multaq Tab*) 400 mg PO BID [facility] Enoxaparin Sodium (Lovenox(*)) 40 mg SUBCUT Q24H [facility]AN[facility] Finasteride (Proscar Tab*) 5 mg PO DAILY [facility] Glipizide (Glucotrol Tab*) 5 mg PO 0800,1700 [facility] Sodium Chloride (Ns 0.9% 1000 Ml*) 1,000 mls @ 50 mls/hr IV PER RATE [facility] Levofloxacin (Levaquin Tab*) 500 mg PO Q24H [facility] Metoprolol Succinate (Toprol Xl Tab*) 50 mg PO BID [facility] Nitroglycerin (Nitroglycerin Tab 0.4 Mg*) 0.4 mg SL Q5M PRN PRN Reason: pain Prednisone (Deltasone Tab*) 40 mg PO DAILY [facility] Tiotropium [place] (Spiriva Cap.Inh*) cap INH DAILY [facility] Valsartan (Diovan Tab*) 160 mg PO DAILY [facility] Vital Signs 01/05/17 01/05/17 01/05/17 14:51 15:42 15:43 Temperature 98.7 F Pulse Rate 73 Respiratory 20 21 Rate Blood Pressure 124/89 138/68 (mmHg) O2 Sat by Pulse 93 Oximetry 01/05/17 01/05/17 01/05/17 16:00 16:29 16:30 Temperature Pulse Rate 63 60 Respiratory 19 15 Rate Blood Pressure 125/65 113/81 (mmHg) O2 Sat by Pulse 90 92 Oximetry 01/05/17 01/05/17 17:00 18:00 Temperature Pulse Rate 59 59 Respiratory 22 25 Rate Blood Pressure (mmHg) O2 Sat by Pulse 92 92 Oximetry Oxygen Devices in Use Now: None Appearance: Alert, partly up on ED stretcher. In good spirits. Looks comfortable. Result Diagrams: 01/05/17 15:54 01/05/17 15:54 Additional Lab and Data: Lab Results 01/05/17 01/05/17 01/05/17 Range/Units 15:54 15:54 15:54 WBC 9.7 (3.5-10.8) 10^3/ul RBC 4.51 (4.0-5.4) 10^6/ul Hgb 11.9 L (14.0-18.0) g/dl Hct 36 L (42-52) % MCV 80 (80-94) fL MCH 26 L (27-31) pg MCHC 33 (31-36) g/dl RDW 21 H (10.5-15) % Plt Count 269 (150-450) 10^3/ul MPV 7 L (7.4-10.4) um3 Neut % (Auto) 66.6 (38-83) % Lymph % (Auto) 16.3 L (25-47) % [place] % (Auto) 12.2 H (1-9) % Eos % (Auto) 4.2 (0-6) % Baso % (Auto) 0.7 (0-2) % Absolute Neuts (auto) 6.5 (1.5-7.7) 10^3/ul Absolute Lymphs (auto) 1.6 (1.0-4.8) 10^3/ul Absolute Monos (auto) 1.2 H (0-0.8) 10^3/ul Absolute Eos (auto) 0.4 (0-0.6) 10^3/ul Absolute Basos (auto) 0.1 (0-0.2) 10^3/ul Absolute Nucleated RBC 0 10^3/ul Nucleated RBC % 0 INR (Anticoag Therapy) 1.23 H (0.89-1.11) APTT 30.5 (26.0-36.3) seconds Sodium (133-145) mmol/L Potassium (3.5-5.0) mmol/L Chloride (101-111) mmol/L Carbon Dioxide (22-32) mmol/L Anion Gap (2-11) mmol/L BUN (6-24) mg/dL Creatinine (0.67-1.17) mg/dL Est GFR ( Amer) (>60) Est GFR (Non-Af Amer) (>60) BUN/Creatinine Ratio (8-20) Glucose (70-100) mg/dL Lactic Acid (0.5-2.0) mmol/L Calcium (8.6-10.3) mg/dL Magnesium (1.9-2.7) mg/dL Total Bilirubin (0.2-1.0) mg/dL AST (13-39) U/L ALT (7-52) U/L Alkaline Phosphatase (34-104) U/L Total Creatine Kinase (10-223) U/L CK-MB (CK-2) (0.6-6.3) ng/mL Troponin I (<0.04) ng/mL C-Reactive Protein (< 5.00) mg/L B-Natriuretic Peptide 98 ( - 100) pg/mL Total Protein (6.4-8.9) g/dL Albumin (3.2-5.2) g/dL Globulin (2-4) g/dL Albumin/Globulin Ratio (1-3) Lipase (11.0-82.0) U/L TSH (0.34-5.60) mcIU/mL 01/05/17 01/05/17 Range/Units 15:54 15:54 WBC (3.5-10.8) 10^3/ul RBC (4.0-5.4) 10^6/ul Hgb (14.0-18.0) g/dl Hct (42-52) % MCV (80-94) fL MCH (27-31) pg MCHC (31-36) g/dl RDW (10.5-15) % Plt Count (150-450) 10^3/ul MPV (7.4-10.4) um3 Neut % (Auto) (38-83) % Lymph % (Auto) (25-47) % Emanuel % (Auto) (1-9) % Eos % (Auto) (0-6) % Baso % (Auto) (0-2) % Absolute Neuts (auto) (1.5-7.7) 10^3/ul Absolute Lymphs (auto) (1.0-4.8) 10^3/ul Absolute Monos (auto) (0-0.8) 10^3/ul Absolute Eos (auto) (0-0.6) 10^3/ul Absolute Basos (auto) (0-0.2) 10^3/ul Absolute Nucleated RBC 10^3/ul Nucleated RBC % INR (Anticoag Therapy) (0.89-1.11) APTT (26.0-36.3) seconds Sodium 135 (133-145) mmol/L Potassium 4.5 (3.5-5.0) mmol/L Chloride 99 L (101-111) mmol/L Carbon Dioxide 30 (22-32) mmol/L Anion Gap 6 (2-11) mmol/L BUN 15 (6-24) mg/dL Creatinine 1.08 (0.67-1.17) mg/dL Est GFR ( Amer) 86.2 (>60) Est GFR (Non-Af Amer) 67.0 (>60) BUN/Creatinine Ratio 13.9 (8-20) Glucose 89 (70-100) mg/dL Lactic Acid 0.9 (0.5-2.0) mmol/L Calcium 9.6 (8.6-10.3) mg/dL Magnesium 2.1 (1.9-2.7) mg/dL Total Bilirubin 0.70 (0.2-1.0) mg/dL AST 20 (13-39) U/L ALT 13 (7-52) U/L Alkaline Phosphatase 51 (34-104) U/L Total Creatine Kinase 38 (10-223) U/L CK-MB (CK-2) 1.1 (0.6-6.3) ng/mL Troponin I 0.01 (<0.04) ng/mL C-Reactive Protein 8.81 H (< 5.00) mg/L B-Natriuretic Peptide ( - 100) pg/mL Total Protein 7.0 (6.4-8.9) g/dL Albumin 3.7 (3.2-5.2) g/dL Globulin 3.3 (2-4) g/dL Albumin/Globulin Ratio 1.1 (1-3) Lipase 24 (11.0-82.0) U/L TSH 0.67 (0.34-5.60) mcIU/mL Assess/Plan/Problems-Billing Assessment:
[2017-01-05] MEDS ORDERED: Dextrose 50% Syringe 50 ML* 25 GM/50 ML SYRINGE IV PUSH PRN (20:09)
[2017-01-05] MEDS: Mometasone/Formoter 100/5 MDI INH SCH ×2 (20:22→22:42)
--- NOTE | 2017-01-05 20:30 | PN ---
Subjective Date of Service: 01/05/17 Interval History: Addendum to H&P Family History: Findings - Father had [place], mother had lung cancer Social History: Findings - Quit smoking 2007. No alcohol abuse. Lives with his who is his SDM. Past Medical History: Findings - PAF, resolved with dronaderone. Pacer for tachy-georgina. HTN, BPH, DM. JEANNINE, only uses hs O2. Objective Active Medications: Albuterol/Ipratropium (Duoneb Neb.Marilyn*) 1 neb INH Q4H PRN PRN Reason: SOB/WHEEZING Aspirin (Aspirin Ec Low Dose*) 81 mg PO DAILY [facility] Atorvastatin Calcium (Lipitor*) 60 mg PO DAILY [facility] Device (Tiotropium Inhaler Device*) 0 each .SEE ORDER ONCE ONE Stop: 01/06/17 09:01 Dextrose (D50w Syringe 50 Ml*) 12.5 gm IV PUSH .FOR FS < 60 - SS PRN PRN Reason: FS < 60 Diltiazem HCl (Cardizem Cd Cap*) 480 mg PO DAILY WITH MEAL [facility] Dronedarone (Multaq Tab*) 400 mg PO BID [facility]AN[facility] Finasteride (Proscar Tab*) 5 mg PO DAILY [facility] Glipizide (Glucotrol Tab*) 5 mg PO 0800,1700 [facility] Sodium Chloride (Ns 0.9% 1000 Ml*) 1,000 mls @ 50 mls/hr IV PER RATE [facility] Insulin Human Lispro (Humalog*) 0 units SUBCUT ACHS ZHANNA PRN Reason: Protocol Levofloxacin (Levaquin Tab*) 500 mg PO Q24H [facility] Metoprolol Succinate (Toprol Xl Tab*) 50 mg PO BID [facility] Mometasone Furoate/Formoterol Fumar (Dulera 100/5 Mdi*) 2 puff INH BID [facility] Last Admin: 01/05/17 20:22 Dose: Not Given Nitroglycerin (Nitroglycerin Tab 0.4 Mg*) 0.4 mg SL Q5M PRN PRN Reason: pain Prednisone (Deltasone Tab*) 40 mg PO DAILY [facility] Rivaroxaban (Xarelto (*)) 20 mg PO DAILY [facility] Tiotropium [place] (Spiriva Cap.Inh*) 1 cap INH DAILY [facility] Valsartan (Diovan Tab*) 160 mg PO DAILY [facility] Oxygen Devices in Use Now: None Eyes: No Scleral Icterus Ears/Nose/Mouth/Throat: Clear Oropharnyx, Mucous Membranes Moist Neck: NL Appearance and Movements; NL JVP, No Thyroid Enlargement, Masses Respiratory: Symmetrical Chest Expansion and Respiratory Effort, Clear to Percussion, - - sl diminished BS and mild scattered rhnonchi, good air movement Cardiovascular: NL Sounds; No Murmurs; No JVD, RRR, No Edema, - Extremities: No Edema, No Clubbing, Cyanosis, - Skin: No Rash or Ulcers, No Nodules or Sclerosis, - Neurological: Alert and Oriented x 3, NL Sensation Result Diagrams: 01/05/17 15:54 01/05/17 15:54 Additional Lab and Data: Lab Results 01/05/17 01/05/17 01/05/17 Range/Units 15:54 15:54 15:54 WBC 9.7 (3.5-10.8) 10^3/ul RBC 4.51 (4.0-5.4) 10^6/ul Hgb 11.9 L (14.0-18.0) g/dl Hct 36 L (42-52) % MCV 80 (80-94) fL MCH 26 L (27-31) pg MCHC 33 (31-36) g/dl RDW 21 H (10.5-15) % Plt Count 269 (150-450) 10^3/ul MPV 7 L (7.4-10.4) um3 Neut % (Auto) 66.6 (38-83) % Lymph % (Auto) 16.3 L (25-47) % [place] % (Auto) 12.2 H (1-9) % Eos % (Auto) 4.2 (0-6) % Baso % (Auto) 0.7 (0-2) % Absolute Neuts (auto) 6.5 (1.5-7.7) 10^3/ul Absolute Lymphs (auto) 1.6 (1.0-4.8) 10^3/ul Absolute Monos (auto) 1.2 H (0-0.8) 10^3/ul Absolute Eos (auto) 0.4 (0-0.6) 10^3/ul Absolute Basos (auto) 0.1 (0-0.2) 10^3/ul Absolute Nucleated RBC 0 10^3/ul Nucleated RBC % 0 INR (Anticoag Therapy) 1.23 H (0.89-1.11) APTT 30.5 (26.0-36.3) seconds Sodium (133-145) mmol/L Potassium (3.5-5.0) mmol/L Chloride (101-111) mmol/L Carbon Dioxide (22-32) mmol/L Anion Gap (2-11) mmol/L BUN (6-24) mg/dL Creatinine (0.67-1.17) mg/dL Est GFR ( Amer) (>60) Est GFR (Non-Af Amer) (>60) BUN/Creatinine Ratio (8-20) Glucose (70-100) mg/dL Lactic Acid (0.5-2.0) mmol/L Calcium (8.6-10.3) mg/dL Magnesium (1.9-2.7) mg/dL Total Bilirubin (0.2-1.0) mg/dL AST (13-39) U/L ALT (7-52) U/L Alkaline Phosphatase (34-104) U/L Total Creatine Kinase (10-223) U/L CK-MB (CK-2) (0.6-6.3) ng/mL Troponin I (<0.04) ng/mL C-Reactive Protein (< 5.00) mg/L B-Natriuretic Peptide 98 ( - 100) pg/mL Total Protein (6.4-8.9) g/dL Albumin (3.2-5.2) g/dL Globulin (2-4) g/dL Albumin/Globulin Ratio (1-3) Lipase (11.0-82.0) U/L TSH (0.34-5.60) mcIU/mL 01/05/17 01/05/17 Range/Units 15:54 15:54 WBC (3.5-10.8) 10^3/ul RBC (4.0-5.4) 10^6/ul Hgb (14.0-18.0) g/dl Hct (42-52) % MCV (80-94) fL MCH (27-31) pg MCHC (31-36) g/dl RDW (10.5-15) % Plt Count (150-450) 10^3/ul MPV (7.4-10.4) um3 Neut % (Auto) (38-83) % Lymph % (Auto) (25-47) % [place] % (Auto) (1-9) % Eos % (Auto) (0-6) % Baso % (Auto) (0-2) % Absolute Neuts (auto) (1.5-7.7) 10^3/ul Absolute Lymphs (auto) (1.0-4.8) 10^3/ul Absolute Monos (auto) (0-0.8) 10^3/ul Absolute Eos (auto) (0-0.6) 10^3/ul Absolute Basos (auto) (0-0.2) 10^3/ul Absolute Nucleated RBC 10^3/ul Nucleated RBC % INR (Anticoag Therapy) (0.89-1.11) APTT (26.0-36.3) seconds Sodium 135 (133-145) mmol/L Potassium 4.5 (3.5-5.0) mmol/L Chloride 99 L (101-111) mmol/L Carbon Dioxide 30 (22-32) mmol/L Anion Gap 6 (2-11) mmol/L BUN 15 (6-24) mg/dL Creatinine 1.08 (0.67-1.17) mg/dL Est GFR ( Amer) 86.2 (>60) Est GFR (Non-Af Amer) 67.0 (>60) BUN/Creatinine Ratio 13.9 (8-20) Glucose 89 (70-100) mg/dL Lactic Acid 0.9 (0.5-2.0) mmol/L Calcium 9.6 (8.6-10.3) mg/dL Magnesium 2.1 (1.9-2.7) mg/dL Total Bilirubin 0.70 (0.2-1.0) mg/dL AST 20 (13-39) U/L ALT 13 (7-52) U/L Alkaline Phosphatase 51 (34-104) U/L Total Creatine Kinase 38 (10-223) U/L CK-MB (CK-2) 1.1 (0.6-6.3) ng/mL Troponin I 0.01 (<0.04) ng/mL C-Reactive Protein 8.81 H (< 5.00) mg/L B-Natriuretic Peptide ( - 100) pg/mL Total Protein 7.0 (6.4-8.9) g/dL Albumin 3.7 (3.2-5.2) g/dL Globulin 3.3 (2-4) g/dL Albumin/Globulin Ratio 1.1 (1-3) Lipase 24 (11.0-82.0) U/L TSH 0.67 (0.34-5.60) mcIU/mL Assess/Plan/Problems-Billing Assessment: - Patient Problems (1) COPD exacerbation Current Visit: No Status: Acute Priority: Medium Onset Date: 03/22/15 Code(s): J44.1 - CHRONIC OBSTRUCTIVE PULMONARY DISEASE W (ACUTE) EXACERBATION SNOMED Code(s): 372773364 Comment: Continue levofloxacin, prednisone taper, bronchodilators. (2) Atrial fibrillation with RVR Current Visit: No Status: Acute Code(s): I48.91 - UNSPECIFIED ATRIAL FIBRILLATION SNOMED Code(s): 038356675975108 Comment: Continue dronedarone, diltiazem 240 mg bid. His pharmacy is closed now, and neither he nor his could tell me if he was still on rivaroxaban. I ordered one dose for the AM and will call the pharmacy in the AM. (3) Iron (Fe) deficiency anemia Current Visit: No Status: Acute Code(s): D50.9 - IRON DEFICIENCY ANEMIA, UNSPECIFIED SNOMED Code(s): 01766281 Comment: Ferritin ordered for 01/06. (4) Type 2 diabetes mellitus Current Visit: No Status: Acute Priority: Medium Comment: Continue glipizide 5 mg bid, also Lispro by SS. (5) CAD (coronary artery disease) Current Visit: No Status: Chronic Priority: Low Code(s): I25.10 - ATHSCL HEART DISEASE OF [place] CORONARY ARTERY W/O ANG PCTRS SNOMED Code(s): 98704294 Comment: Continue ASA, BB.
[2017-01-05] MEDS: Metoprolol Succinate XL TAB* 50 MG PO SCH (22:42)
[2017-01-05] MEDS: Dronedarone TAB* 400 MG PO SCH (22:42)
[2017-01-06] MEDS: Insulin LISPRO* 1 UNITS UNIT SUBCUT SCH ×3 (00:08→12:45)
[2017-01-06 00:26] LABS: Urine Bilirubin Negative (Negative); Urine Glucose 3+(>=500 mg/dL) (Negative); Urine Nitrite Negative (Negative)
[2017-01-06] MEDS ORDERED: glipiZIDE TAB* 5 MG PO SCH (08:00)
[2017-01-06] MEDS: Finasteride TAB* 5 MG PO SCH ×2 (08:04→08:10)
[2017-01-06] MEDS: Metoprolol Succinate XL TAB* 50 MG PO SCH (08:04)
[2017-01-06] MEDS: Dronedarone TAB* 400 MG PO SCH (08:04)
[2017-01-06] MEDS ORDERED: Diltiazem CD CAP* 240 MG PO SCH (08:30)
[2017-01-06] MEDS ORDERED: Spiriva Inhaler DEVICE* 1 EACH DEVICE ONE (09:00)
[2017-01-06] MEDS ORDERED: predniSONE TAB* 20 MG PO SCH (09:00)
[2017-01-06] MEDS ORDERED: Valsartan TAB* 160 MG PO SCH (09:00)
[2017-01-06] MEDS ORDERED: Atorvastatin* 20 MG TAB PO SCH (09:00)
[2017-01-06] MEDS ORDERED: Aspirin EC Low Dose* 81 MG TAB.EC PO SCH (09:00)
[2017-01-06] MEDS ORDERED: Rivaroxaban TAB(*) 20 MG TAB PO SCH (09:00)
[2017-01-06] MEDS: Tiotropium CAP.INH* CAP.INH/18 MCG (USE ORDER SET !) INH SCH ×2 (09:14→13:17)
[2017-01-06] MEDS: Mometasone/Formoter 100/5 MDI INH SCH ×2 (09:15→13:16)
[2017-01-06 12:35] VITALS: BP 151/84
[2017-01-06] MEDS ORDERED: Levofloxacin TAB* 500 MG PO SCH (17:00)
--- NOTE | 2017-01-06 19:34 | DS ---
DISCHARGE SUMMARY: DATE OF ADMISSION: DATE OF DISCHARGE: 01/06/17 HISTORY OF PRESENT ILLNESS: This 71-year-old man presented with increased shortness of breath and cough about a week. He had been prescribed cefuroxime and took a few doses at home, but had no improvement. He denied chest pain, sweats, or chills. His appetite was okay. The rest of the history and physical exam were detailed in my admission note. The patient was given ceftriaxone and levofloxacin in the emergency room. He was given methylprednisolone as well. He received 40 mg of prednisone the day of discharge. He was much improved on the day of discharge, very close to his baseline, possibly slightly more cough than usual. The patient will take 6 days of levofloxacin 500 mg daily at 5 p.m., prednisone to taper from 30 mg to 0 over 3 days at home. He was warned his blood sugars would be a little higher for the few days he was on prednisone. There was confusion about which anticoagulants he was on. He has active prescriptions for both rivaroxaban and the apixaban at his [facility] pharmacy. He has never filled the apixaban prescription. He filled the rivaroxaban on November 30, which he presumably ran out on December 31. I do not think he has any left at home. He got one dose this morning. 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 FINAL DIAGNOSES: 1. Chronic obstructive pulmonary disease exacerbation. 2. Atrial fibrillation. 3. Iron-deficiency anemia. 4. Diabetes. 5. Coronary artery disease. DISCHARGE MEDICATIONS: 1. Levofloxacin 500 mg daily at 5 p.m. for 6 doses. 2. Rivaroxaban 20 mg daily. 3. Prednisone 10 mg taper from 30 to 0 over 3 days. 4. Ferrous sulfate 325 mg b.i.d. 5. Finasteride 5 mg daily. 6. Budesonide/formoterol 2 puffs b.i.d. 7. Atorvastatin 60 mg daily. 8. Aspirin 81 mg daily. 9. Magnesium oxide 800 mg daily. 10. Metoprolol succinate 50 mg b.i.d. 11. Nitroglycerin 0.4 mg sublingual every 5 minutes p.r.n. 12. Tiotropium 1 capsule daily. 13. Valsartan 160 mg daily. 14. Dronedarone 400 mg b.i.d. 15. Glipizide 500 mg 8 a.m. and 5 p.m. 16. Diltiazem CD 480 mg daily. CC: Dr. Alonso, [place]; Dr. Stone * [id number]/[facility] #: [id number] [facility]
== END 2017-01-06 14:00 | disposition home or self-care (01) ==
LOC: ED 14:49 → MEDTELE 19:25
PROVIDERS: ADMIT Internal Medicine; ATTEND Internal Medicine
DX: J44.1 Chronic obstructive pulmonary disease with (acute) exacerbation (principal); I48.91 Unspecified atrial fibrillation; D50.9 Iron deficiency anemia, unspecified; E11.9 Type 2 diabetes mellitus without complications; Z79.01 Long term (current) use of anticoagulants; K21.9 Gastro-esophageal reflux disease without esophagitis; I25.10 Atherosclerotic heart disease of native coronary artery without angina pectoris; Z95.5 Presence of coronary angioplasty implant and graft; Z88.5 Allergy status to narcotic agent; Z88.0 Allergy status to penicillin; Z87.891 Personal history of nicotine dependence
CPT/HCPCS: 36415; 71010; 80053; 81003; 82550; 82553; 82728; 83605; 83690; 83735; 83880; 84443; 84484; 85025; 85610; 85730; 86140; 87040; 93005; 94640; 94760; 96374; 99284; A9270-GY; G0378; J0696; J2930; J7512

== ENCOUNTER 2017-01-31 20:00 | Inpatient (IN) | payer MEDICARE ==
[2017-01-31] MEDS ORDERED: Pantoprazole IV* 40 MG IV ONE (21:10)
[2017-01-31 21:21] LABS: Hematocrit 23 % (42-52); Hemoglobin 7.4 g/dl (14.0-18.0); Mean Corpuscular HGB Conc 33 g/dl (31-36); Mean Corpuscular Hemoglobin 27 pg (27-31); Mean Corpuscular Volume 82 fL (80-94); Mean Platelet Volume 8 um3 (7.4-10.4); Red Blood Count 2.75 10^6/ul (4.0-5.4); Red Cell Distribution Width 19 % (10.5-15); White Blood Count 7.1 10^3/ul (3.5-10.8)
[2017-01-31 21:34] LABS: Albumin 3.2 g/dL (3.2-5.2); BUN/Creatinine Ratio 17.4 (8-20); Calcium 8.9 mg/dL (8.6-10.3); EGFR African American 56.8 (>60); EGFR Non-African American 44.2 (>60); Globulin 2.6 g/dL (2-4); Potassium 4.1 mmol/L (3.5-5.0); Total Bilirubin 0.3 mg/dL (0.2-1.0); Total Protein 5.8 g/dL (6.4-8.9)
--- NOTE | 2017-01-31 21:34 | HP ---
H&P (Free Text) History and Physical: PCP: Risa Alonso MD [place] clinic Date/Time of Evaluation: 01/31/2017 2130 CC: progressive anemia HPI: Mr Bautista is a 71YO male HX AFIB on rivaroxaban admitted to [facility] 01/05- for COPD & AFIB treated with IV methylprednisolone & discharged on a short prednisone taper. He reports black, tarry stools for the past month which he attributed to his BID iron pill. He was seen by his PCP for a physical yesterday with blood work done. Today his PCP called him requesting him come to [facility] ED for evaluation of worsening anemia. He does admit to increased exertional fatigue and SOB without chest pain, palpitations, or sweating. HGB is 7.4 MCV 82, although historically microcytic. Case discussed with Nino Morelos MD GI who agreed to EGD tomorrow. PMedHx CAD/IN/stent x2 DM2 COPD AFIB on rivaroxaban anemia tachy-georgina syndrome s/p pacer HTN GI bleed JEANNINE intoleratnt of CPAP, nocturnal NC oxygen BPH Allergies Bupropion [From Wellbutrin] Allergy (Intermediate, Verified 01/31/17 21:41) Dizziness Vomiting Morphine Allergy (Intermediate, Verified 01/31/17 21:41) See Comment Severe itching started during IV push. Redness, streaking up arms with IV push. Penicillins Allergy (Intermediate, Verified 01/31/17 21:41) Swelling "upsets my nervous system" Ambulatory Orders Ferrous Sulfate TAB* 325 mg PO BID 03/22/15 Atorvastatin* [Lipitor 20 MG*] 60 mg PO DAILY 11/22/16 Budesonide/Formote 80/4.5(NF) [Symbicort 80/4.5 (NF)] 2 puff INH BID 11/22/16 Finasteride TAB* [Proscar TAB*] 5 mg PO DAILY 11/22/16 Aspirin EC Low Dose* [Ecotrin EC Low Dose 81 MG*] 81 mg PO DAILY tab.ec Magnesium Oxide 800 mg PO DAILY 11/28/16 Metoprolol Succinate XL TAB* [Toprol XL TAB*] 50 mg PO BID #60 tab.xl 11/30/16 Nitroglycerin TAB 0.4 MG* 0.4 mg SL Q5M PRN #0 tab 11/30/16 Tiotropium CAP.INH* [Spiriva CAP.INH*] 1 cap.inh INH DAILY 12/14/16 Valsartan 160 mg PO DAILY 12/14/16 Dronedarone TAB* [Multaq TAB*] 400 mg PO BID #60 tab 12/15/16 glipiZIDE TAB* [Glucotrol TAB*] 5 mg PO 0800,1700 #60 tab 12/15/16 Diltiazem CD CAP* [Cardizem CD CAP*] 2 cap PO DAILY WITH MEAL 01/05/17 Levofloxacin TAB* [Levaquin 500 Tab*] 500 mg PO DAILY #6 tab 01/06/17 Rivaroxaban TAB(*) [Xarelto 20 mg] 20 mg PO DAILY #30 tab 01/06/17 predniSONE TAB* [Deltasone TAB*] 10 mg PO DAILY #6 tab 01/06/17 PSurgHx pacer placement large bowel resection for volvulus appendectomy inguinal hernia repair SocHx: former smoker, quit 2007 w/ ~40PYHX, rare alcohol, no recreational drugs ; lives with his ; full code status FamHx: positive for lung CA, CAD, & HTN ROS: as above, otherwise reviewed and all were negative Constitutional: NAD, normally developed, well-nourished elderly white male vitals: Vital Signs Temp 36.2 C 01/31/17 20:09 Pulse 79 01/31/17 20:09 Resp 18 01/31/17 20:09 BP 117/58 01/31/17 20:09 Pulse Ox 97 01/31/17 20:09 Intake & Output 01/30/17 01/31/17 01/31/17 23:59 11:59 23:59 Weight 78.925 kg HEENM: atraumatic; sclera/conjunctiva: non-icteric/clear; hearing: clinically intact; oropharynx: clear, mucosa moist Neck: soft tissue: non-tender; thyroid: normal Pulmonary: scant end-inspiratory and end-expiratory wheeze, fair aeration, no accessory muscle use CV: RR/RR, normal S1S2, no carotid bruit, no jugular venous distention, 2+ B DP/ PT, no edema Abdominal: soft, non-distended, non-tender, no rebound/guarding/rigidity, normoactive bowel sounds, no hepatosplenomegaly or masses, no costovertebral angle tenderness; declines rectal exam Musculoskeletal: general: grossly intact; gait: stable Integumental: normal appearance and texture Psychiatric orientation: AA&O to PPS affect: calm mood: cooperative eye contact: good content: reliable responses: timely insight: fair to good Testing: Lab Results 01/31/17 01/31/17 01/31/17 Range/Units 20:24 21:10 21:10 WBC (3.5-10.8) 10^3/ul RBC (4.0-5.4) 10^6/ul Hgb (14.0-18.0) g/dl Hct (42-52) % MCV (80-94) fL MCH (27-31) pg MCHC (31-36) g/dl RDW (10.5-15) % Plt Count (150-450) 10^3/ul MPV (7.4-10.4) um3 Neut % (Auto) (38-83) % Lymph % (Auto) (25-47) % Nance % (Auto) (1-9) % Eos % (Auto) (0-6) % Baso % (Auto) (0-2) % Absolute Neuts (auto) (1.5-7.7) 10^3/ul Absolute Lymphs (auto) (1.0-4.8) 10^3/ul Absolute Monos (auto) (0-0.8) 10^3/ul Absolute Eos (auto) (0-0.6) 10^3/ul Absolute Basos (auto) (0-0.2) 10^3/ul Absolute Nucleated RBC 10^3/ul Nucleated RBC % INR (Anticoag Therapy) 2.24 H (0.89-1.11) APTT 38.9 H (26.0-36.3) seconds Sodium (133-145) mmol/L Potassium (3.5-5.0) mmol/L Chloride (101-111) mmol/L Carbon Dioxide (22-32) mmol/L Anion Gap (2-11) mmol/L BUN (6-24) mg/dL Creatinine (0.67-1.17) mg/dL Est GFR ( Amer) (>60) Est GFR (Non-Af Amer) (>60) BUN/Creatinine Ratio (8-20) Glucose (70-100) mg/dL Calcium (8.6-10.3) mg/dL Total Bilirubin (0.2-1.0) mg/dL AST (13-39) U/L ALT (7-52) U/L Alkaline Phosphatase (34-104) U/L Troponin I 0.01 (<0.04) ng/mL Total Protein (6.4-8.9) g/dL Albumin (3.2-5.2) g/dL Globulin (2-4) g/dL Albumin/Globulin Ratio (1-3) Blood Type A Positive Antibody Screen Negative Crossmatch See Detail 01/31/17 01/31/17 Range/Units 21:10 21:10 WBC 7.1 (3.5-10.8) 10^3/ul RBC 2.75 L (4.0-5.4) 10^6/ul Hgb 7.4 L (14.0-18.0) g/dl Hct 23 L (42-52) % MCV 82 (80-94) fL MCH 27 (27-31) pg MCHC 33 (31-36) g/dl RDW 19 H (10.5-15) % Plt Count 235 (150-450) 10^3/ul MPV 8 (7.4-10.4) um3 Neut % (Auto) 50.3 (38-83) % Lymph % (Auto) 27.0 (25-47) % Nance % (Auto) 11.7 H (1-9) % Eos % (Auto) 10.2 H (0-6) % Baso % (Auto) 0.8 (0-2) % Absolute Neuts (auto) 3.6 (1.5-7.7) 10^3/ul Absolute Lymphs (auto) 1.9 (1.0-4.8) 10^3/ul Absolute Monos (auto) 0.8 (0-0.8) 10^3/ul Absolute Eos (auto) 0.7 H (0-0.6) 10^3/ul Absolute Basos (auto) 0.1 (0-0.2) 10^3/ul Absolute Nucleated RBC 0.01 10^3/ul Nucleated RBC % 0.1 INR (Anticoag Therapy) (0.89-1.11) APTT (26.0-36.3) seconds Sodium 137 (133-145) mmol/L Potassium 4.1 (3.5-5.0) mmol/L Chloride 104 (101-111) mmol/L Carbon Dioxide 28 (22-32) mmol/L Anion Gap 5 (2-11) mmol/L BUN 27 H (6-24) mg/dL Creatinine 1.55 H (0.67-1.17) mg/dL Est GFR ( Amer) 56.8 (>60) Est GFR (Non-Af Amer) 44.2 (>60) BUN/Creatinine Ratio 17.4 (8-20) Glucose 108 H (70-100) mg/dL Calcium 8.9 (8.6-10.3) mg/dL Total Bilirubin 0.30 (0.2-1.0) mg/dL AST 13 (13-39) U/L ALT 10 (7-52) U/L Alkaline Phosphatase 40 (34-104) U/L Troponin I (<0.04) ng/mL Total Protein 5.8 L (6.4-8.9) g/dL Albumin 3.2 (3.2-5.2) g/dL Globulin 2.6 (2-4) g/dL Albumin/Globulin Ratio 1.2 (1-3) Blood Type Antibody Screen Crossmatch ECG, personally reviewed: ordered, pending EGD vis Nino Morelos MD 03/22/2015: FINDINGS: The esophagus was normal. There was no evidence of erosion or inflammatory change. The stomach was entered. There was no evidence of bleeding in the stomach. However, there was some evidence of antral gastritis with some scattered erosions and friable mucosa. It was relatively mild to moderate. A CLOtest biopsy was obtained. The pylorus was normal and patent. The duodenal bulb was normal and the second to third portion of the duodenum was normal with a normal folding pattern. CONCLUSION: [id number] antral gastritis as described above. CLOtest biopsy obtained, otherwise unremarkable gastroscopy. RECOMMENDATION: Although it is possible that this could account for the patient's symptoms, it is not severe enough a lesion to be completely confident of that. For that reason, I would recommend a colonoscopy as an outpatient as he is due for that as well that was discussed with the patient. Colonoscopy via Nino Morelos MD 03/30/2015: FINDINGS: Colonoscopy into the terminal ileum was performed. The ileum was inspected for about 10 to 15 cm and was normal. The colon was thereafter very carefully inspected. Mild sigmoid diverticulosis was noted. No other mucosal abnormality was detected. There was no evidence of polyp or mass. There was no evidence of bleeding inside the colon. There was no AVM. The rectum was viewed both in the forward view and retroflex manner and was normal. CONCLUSION: Sigmoid diverticulosis, otherwise normal colonoscopy into the terminal ileum. RECOMMENDATION: Certainly, there is nothing on today's exam that would account for his anemia and perhaps the gastritis seen previously was responsible for his GI blood loss. At this point, I would recommend maintaining him on a proton pump inhibitor and following his CBC as an outpatient. If his blood count drops or if it remains Hemoccult-positive, a small bowel evaluation would potentially be the next step. Impression: 71M presenting with progressive anemia w/ HX consistent w/ melena DIAGNOSIS & PLAN Primary upper GI bleed : hold rivaroxaban, not currently severe enough to warrant K-Centra : pantoprazole bolus/GTT : telemetry : supplemental oxygen : clear liquid diet, NPO after breakfast : Nino Morelos MD GI consulted for EGD tomorrow : give 2 units PRBs, trend H&H Q6H afterwards : supportive care JEREMY, pre-renal : volume repletion via pRBCs : trend Secondary CAD/IN/stent x2 : hold aspirin DM2 : A1c 7.1 12/14/2016 : basal/correctional protocol : hold glipizide COPD : albuterol nebs : mometasone/formoterol : tiotropium : incentive spirometry AFIB : hold rivaroxaban as above : continue diltiazem CD & dronedarone HTN : hold metoprolol & valsartan : continue diltiazem CD HLD : continue atorvastatin JEANNINE : intolerant of CPAP : supplemental oxygen BPH : continue finasteride Admission Rational: inpatient for upper GI bleed complicated by rivaroxaban DVTp: SCDs, no anticoagulation in GI bleeding Code Status: full HCP:
[2017-01-31] MEDS ORDERED: Pantoprazole IV* 80 MG in NS 0.9% 250 ML* 250 ML IV SCH (22:00)
[2017-01-31] MEDS ORDERED: Albuterol 2.5 MG/3 ML NEB.SOL* (0.083%) INH PRN (22:40)
[2017-01-31] MEDS ORDERED: Melatonin (NF) 3 MG TAB PO PRN (22:40)
[2017-01-31] MEDS ORDERED: Acetaminophen TAB* 325 MG PO PRN (22:40)
[2017-01-31] MEDS ORDERED: Ondansetron INJ* 2 MG/ML VIAL IV PRN (22:40)
[2017-01-31] MEDS: Pantoprazole IV* 80 MG in NS 0.9% 250 ML* 250 ML IVPB SCH (23:55)
[2017-01-31] MEDS: Insulin LISPRO* 1 UNITS UNIT SUBCUT SCH (23:56)
[2017-02-01] MEDS: Insulin LISPRO* 1 UNITS UNIT SUBCUT SCH ×5 (03:37→19:21)
[2017-02-01] MEDS: Tiotropium CAP.INH* CAP.INH/18 MCG (USE ORDER SET !) INH SCH (08:14)
[2017-02-01] MEDS: Mometasone/Formoter 200/5 MDI INH SCH ×2 (08:17→20:34)
[2017-02-01] MEDS ORDERED: Spiriva Inhaler DEVICE* 1 EACH DEVICE INH ONE (09:00)
[2017-02-01 09:42] LABS: Hematocrit 29 % (42-52); Hemoglobin 9.7 g/dl (14.0-18.0); Mean Corpuscular HGB Conc 33 g/dl (31-36); Mean Corpuscular Hemoglobin 27 pg (27-31); Mean Corpuscular Volume 84 fL (80-94); Mean Platelet Volume 7 um3 (7.4-10.4); Red Blood Count 3.52 10^6/ul (4.0-5.4); Red Cell Distribution Width 19 % (10.5-15); White Blood Count 7.5 10^3/ul (3.5-10.8)
[2017-02-01 10:04] LABS: BUN/Creatinine Ratio 16.5 (8-20); EGFR African American 71.5 (>60); EGFR Non-African American 55.6 (>60); Potassium 3.8 mmol/L (3.5-5.0)
[2017-02-01] MEDS: Pantoprazole IV* 80 MG in NS 0.9% 250 ML* 250 ML IVPB SCH ×2 (10:04→19:16)
[2017-02-01 15:09] LABS: Hematocrit 29 % (42-52); Hemoglobin 9.7 g/dl (14.0-18.0)
--- NOTE | 2017-02-01 17:02 | PN ---
Subjective Date of Service: 02/01/17 Interval History: HOSPITALIST PROGRESS NOTE Patient seen and examined at bedside. He feels better after receiving 2 PRBCs. Denies abdominal pain, had another dark BM earlier today. Breathing is better, denies CP. Family History: Unchanged from Admission Social History: Unchanged from Admission Past Medical History: Unchanged from Admission Objective Active Medications: Acetaminophen (Tylenol Tab*) 650 mg PO Q6H PRN PRN Reason: FEVER/PAIN Albuterol (Ventolin 2.5 Mg/3 Ml Neb.Marilyn*) 2.5 mg INH Q2H PRN PRN Reason: SOB/WHEEZING Pantoprazole Sodium 80 mg/ (Sodium Chloride) 250 mls @ 25 mls/hr IVPB Q10H [facility] Last Admin: 02/01/17 10:04 Dose: 25 mls/hr Insulin Glargine (Lantus(*)) 13 units SUBCUT 2100 ZHANNA Insulin Human Lispro (Humalog*) 0 units SUBCUT Q4H ZHANNA PRN Reason: Protocol Last Admin: 02/01/17 15:10 Dose: Not Given Melatonin (Melatonin (Nf)) 3 mg PO BEDTIME PRN; Protocol PRN Reason: Sleep Mometasone Furoate/Formoterol Fumar (Dulera 200/5 Mdi*) 2 puff INH BID [facility] Last Admin: 02/01/17 08:17 Dose: 2 puff Ondansetron HCl (Zofran Inj*) 4 mg IV Q6H PRN PRN Reason: NAUSEA Pantoprazole Sodium (Protonix Iv*) 80 mg IV ED ONCE ONE Stop: 02/01/17 22:44 Tiotropium [place] (Spiriva Cap.Inh*) 1 cap INH DAILY [facility] Last Admin: 02/01/17 08:14 Dose: 1 cap Vital Signs 02/01/17 02/01/17 08:20 11:28 Temperature 98.0 F Pulse Rate 65 71 Respiratory 19 16 Rate Blood Pressure 143/69 (mmHg) O2 Sat by Pulse 95 95 Oximetry Oxygen Devices in Use Now: None Appearance: Pleasant elderly male lying in bed in NAD. Eyes: No Scleral Icterus Ears/Nose/Mouth/Throat: Mucous Membranes Moist Neck: Trachea Midline Respiratory: Symmetrical Chest Expansion and Respiratory Effort, Clear to Auscultation Cardiovascular: RRR - Normal S1 and S2 Abdominal: NL Sounds; No Tenderness; No Distention Neurological: Alert and Oriented x 3, NL Muscle Strength and Tone Nutrition: Taking PO's Result Diagrams: 02/01/17 15:00 02/01/17 09:25 Assess/Plan/Problems-Billing Assessment: Mr. Bautista is a 71yo M with PMH of CAD s/p [place] and stents, type 2 DM, COPD, atrial fibrillation on AC, Afib on Rivaroxaban, tachy-georgina syndrome s/p pacer, prior h/o GI bleed and anemia, HTN, JEANNINE (cannot tolerate CPAP), BPH, recent admission for COPD exacerbation (discharged on steroids), admitted black stools and worsening anemia secondary to upper GI bleed. - Patient Problems (1) Upper GI bleed Comment: - Likely secondary to recent steroids use. - Aspirin and Rivaroxaban stopped for now, but will try to resume Aspirin as soon as GI deems it safe. - Continue Protonix drip. - For EGD today. (2) Acute blood loss anemia Comment: - S/p 2 PRBC. - Continue to monitor H/H. (3) JEREMY (acute kidney injury) Comment: - Pre-renal in the setting of GI bleed. - Improving. - Continue to monitor renal function. (4) CAD (coronary artery disease) Comment: - Stable. - No chest pain or dyspnea. - Will try to resume Aspirin as soon as GI deems it safe. (5) Type 2 diabetes mellitus Comment: - A1c 7.1 in December. - Continue Lantus and Lispro SS. - Glipizide on hold. (6) COPD (chronic obstructive pulmonary disease) Comment: - Stable. - Continue bronchodilators and inhaled steroids. (7) Afib Comment: - Continue Multaq and Cardizem. - Rivaroxaban on hold. (8) DVT prophylaxis Comment: - Pharmacological prophylaxis contraindicated in the setting of GI bleed. - SCDs. (9) Full code status Status and Disposition: Inpatient.
[2017-02-01] MEDS ORDERED: fentaNYL* 50 MCG/ML 2 ML VIAL (100 MCG VIAL) ONE (17:08)
[2017-02-01] MEDS ORDERED: Midazolam* 1 MG/ML 10 ML VIAL (10 MG) ONE (17:08)
[2017-02-01] MEDS: Omeprazole CAP* 20 MG PO SCH (21:28)
[2017-02-01] MEDS: Dronedarone TAB* 400 MG PO SCH (21:28)
[2017-02-01] MEDS: Insulin GLARGINE(*) 1 UNITS UNIT SUBCUT SCH (21:47)
[2017-02-01] MEDS ORDERED: Pantoprazole IV* 40 MG IV ONE (22:43)
[2017-02-02 06:39] LABS: Hematocrit 31 % (42-52); Hemoglobin 9.9 g/dl (14.0-18.0); Mean Corpuscular HGB Conc 32 g/dl (31-36); Mean Corpuscular Hemoglobin 28 pg (27-31); Mean Corpuscular Volume 85 fL (80-94); Mean Platelet Volume 7 um3 (7.4-10.4); Red Blood Count 3.62 10^6/ul (4.0-5.4); Red Cell Distribution Width 19 % (10.5-15); White Blood Count 7.1 10^3/ul (3.5-10.8)
--- NOTE | 2017-02-02 06:44 | PRO ---
DATE OF PROCEDURE: 02/01/17 - ROOM #333 PROCEDURE: Upper endoscopy with CLOtest biopsy. MEDICINES USED: Versed 4 mg IV, Fentanyl 25 mcg IV. NARRATIVE: This is a 71-year-old gentleman presenting with an upper GI bleed. He is on anticoagulants and recently placed on prednisone. He was found to be anemic with black stools. He was transfused with an appropriate bump in his H and H. Upper endoscopy is being carried out for this indication. DESCRIPTION OF PROCEDURE: After the procedure was discussed with the patient, risks and benefits were outlined, written consent was obtained, the patient was placed in the left lateral decubitus position and conscious sedation was administered. A video diagnostic gastroscope was inserted orally and passed very carefully into the esophagus. The esophagus, stomach, and duodenum to the second to third portion were well visualized. The patient tolerated the procedure well and there were no immediate complications. FINDINGS: The esophagus was normal. There was no evidence of erosive change. The stomach was entered. There was some bile in the stomach, but certainly no blood. The cardia, fundus, and body of the stomach were unremarkable. However, the antrum was notable for scattered erosions and inflammatory change consistent with moderate antral gastritis. There was no true ulceration. A CLOtest biopsy was obtained from the angularis. The duodenal bulb was normal in the second to third portion of the duodenum with normal folding pattern. CONCLUSION: Moderate antral gastritis with erosions, which certainly could be accounting for the patient's GI bleeding. CLOtest biopsy obtained. RECOMMENDATION: The patient should remain on PPI therapy. H and H will be followed. He likely should be on a PPI senior living and that was discussed with him. CC: Dr. Alonso * [id number]/[facility] #: [id number] MTDD
[2017-02-02 06:55] LABS: BUN/Creatinine Ratio 15.3 (8-20); Calcium 9.3 mg/dL (8.6-10.3); EGFR African American 77.8 (>60); EGFR Non-African American 60.5 (>60)
[2017-02-02] MEDS: Tiotropium CAP.INH* CAP.INH/18 MCG (USE ORDER SET !) INH SCH (08:15)
[2017-02-02] MEDS: Mometasone/Formoter 200/5 MDI INH SCH ×2 (08:15→20:54)
[2017-02-02] MEDS: Insulin LISPRO* 1 UNITS UNIT SUBCUT SCH ×7 (09:04→20:16)
[2017-02-02] MEDS: Diltiazem CD CAP* 240 MG PO SCH (09:12)
[2017-02-02] MEDS: Omeprazole CAP* 20 MG PO SCH ×2 (09:12→20:20)
[2017-02-02] MEDS: Dronedarone TAB* 400 MG PO SCH ×2 (09:12→20:20)
[2017-02-02] MEDS ORDERED: Furosemide IV* 10 MG/ML 10 ML VIAL (100 MG) IV ONE (10:59)
--- NOTE | 2017-02-02 14:46 | PN ---
Subjective Date of Service: 02/02/17 Interval History: HOSPITALIST PROGRESS NOTE Patient seen and examined at bedside. He feels better today. "My stomach is fine." Tolerating diet well. No BM so far today. Family History: Unchanged from Admission Social History: Unchanged from Admission Past Medical History: Unchanged from Admission Objective Active Medications: Acetaminophen (Tylenol Tab*) 650 mg PO Q6H PRN PRN Reason: FEVER/PAIN Albuterol (Ventolin 2.5 Mg/3 Ml Neb.Marilyn*) 2.5 mg INH Q2H PRN PRN Reason: SOB/WHEEZING Last Admin: 02/02/17 08:18 Dose: 2.5 mg Diltiazem HCl (Cardizem Cd Cap*) 480 mg PO DAILY WITH MEAL [facility] Last Admin: 02/02/17 09:12 Dose: 480 mg Dronedarone (Multaq Tab*) 400 mg PO BID [facility] Last Admin: 02/02/17 09:12 Dose: 400 mg Insulin Glargine (Lantus(*)) 13 units SUBCUT 2100 [facility] Last Admin: 02/01/17 21:47 Dose: 13 units Insulin Human Lispro (Humalog*) 0 units SUBCUT AC [facility] PRN Reason: Protocol Last Admin: 02/02/17 13:49 Dose: 3 units Insulin Human Lispro (Humalog*) 0 units SUBCUT ACHS [facility] PRN Reason: Protocol Last Admin: 02/02/17 13:49 Dose: 1 units Melatonin (Melatonin (Nf)) 3 mg PO BEDTIME PRN; Protocol PRN Reason: Sleep Mometasone Furoate/Formoterol Fumar (Dulera 200/5 Mdi*) 2 puff INH BID [facility] Last Admin: 02/02/17 08:15 Dose: 2 puff Omeprazole (Prilosec Cap*) 20 mg PO BID [facility] Last Admin: 02/02/17 09:12 Dose: 20 mg Ondansetron HCl (Zofran Inj*) 4 mg IV Q6H PRN PRN Reason: NAUSEA Tiotropium [place] (Spiriva Cap.Inh*) 1 cap INH DAILY [facility] Last Admin: 02/02/17 08:15 Dose: 1 cap Vital Signs 02/02/17 02/02/17 02/02/17 07:55 08:05 08:19 Temperature 98.2 F Pulse Rate 68 68 Respiratory 20 16 15 Rate Blood Pressure 153/69 (mmHg) O2 Sat by Pulse 95 94 Oximetry Oxygen Devices in Use Now: None Appearance: Pleasant gentleman lying in bed in NAD. Eyes: No Scleral Icterus Ears/Nose/Mouth/Throat: Mucous Membranes Moist Neck: Trachea Midline Respiratory: Symmetrical Chest Expansion and Respiratory Effort, - - BS+ bilaterally with bibasilar crackles Cardiovascular: RRR - Normal S1 and S2 Abdominal: NL Sounds; No Tenderness; No Distention Extremities: No Edema Neurological: Alert and Oriented x 3, NL Muscle Strength and Tone Lines/Tubes/Other Access: Clean, Dry and Intact Peripheral IV Nutrition: Taking PO's Result Diagrams: 02/02/17 06:11 02/02/17 06:11 Assess/Plan/Problems-Billing Assessment: Mr. Bautista is a 71yo M with PMH of CAD s/p [place] and stents, type 2 DM, COPD, atrial fibrillation on AC, Afib on Rivaroxaban, tachy-georgina syndrome s/p pacer, prior h/o GI bleed and anemia, HTN, JEANNINE (cannot tolerate CPAP), BPH, recent admission for COPD exacerbation (discharged on steroids), admitted black stools and worsening anemia secondary to upper GI bleed. - Patient Problems (1) Upper GI bleed Comment: - Likely secondary to recent steroids use. - EGD showed gastric erosions. - Continue PPI. - D/w GI - will resume Aspirin. Recommended waiting 1 week before resuming NOAC - may consider Eliquis instead of Xarelto as it causes less GI bleed. (2) Acute blood loss anemia Comment: - S/p 2 PRBC - H/H stable. - Continue to monitor. (3) JEREMY (acute kidney injury) Comment: - Pre-renal in the setting of GI bleed. - Improving. - Continue to monitor renal function. (4) Fluid overload due to blood transfusion Comment: - Patient has mild fluid overload after 2 PRBC transfusion - will give Furosemide 20mg IV and monitor. (5) CAD (coronary artery disease) Comment: - Stable. - No chest pain or dyspnea. - Resume Aspirin. (6) Type 2 diabetes mellitus Comment: - A1c 7.1 in December. - Continue Lantus and Lispro SS. - Glipizide on hold. (7) COPD (chronic obstructive pulmonary disease) Comment: - Stable. - Continue bronchodilators and inhaled steroids. (8) Afib Comment: - Continue Multaq and Cardizem. - Rivaroxaban on hold. (9) DVT prophylaxis Comment: - Pharmacological prophylaxis contraindicated in the setting of GI bleed. - SCDs. (10) Full code status Status and Disposition: Inpatient.
--- NOTE | 2017-02-02 15:24 | ED ---
Elza Hewitt Alok, scribed for Billy Eduardo MD on 01/31/17 at 2132 . Complex/Multi-Sys Presentation - HPI Summary HPI Summary: 71 y/o male presents to the ED for low blood count last seen by Dr De Los Santos yesterday. PMHx includes A fib, stents, and blood thinner started one month ago. Pt notes black stool for the last month as well as SOB since today. Pt denies any chest tightness or hx of ulcers. PMHx also includes COPD though the pt has quit smoking tobacco 8 years ago. - History Of Current Complaint Chief Complaint: EDGeneral Time Seen by Provider: 01/31/17 20:44 Hx Obtained From: Patient Onset/Duration: Gradual Onset, Lasting Days, Still Present Timing: Constant Severity Currently: Moderate Severity Initially: Moderate Associated Signs And Symptoms: Positive: SOB, Other - Black Stool. Negative: Chest Pain - Allergies/Home Medications Allergies/Adverse Reactions: Allergies Allergy/AdvReac Type Severity Reaction Status Date / Time Bupropion [From Wellbutrin] Allergy Intermediate Dizziness Verified 01/31/17 21: 41 Morphine Allergy Intermediate See Comment Verified 01/31/17 21:41 Penicillins Allergy Intermediate Swelling Verified 01/31/17 21:41 PMH/Surg Hx/FS Hx/Imm Hx Endocrine/Hematology History: Reports: Hx Anticoagulant Therapy, Hx Diabetes, Hx Anemia Cardiovascular History: Reports: Hx Angina, Hx Angioplasty, Hx Atrial Fibrillation, Hx Auto Implanted Cardiovert Defib - November 2014, Hx Cardiac Arrest - 2014, Hx Coronary Artery Disease, Hx Hypercholesterolemia, Hx Hypertension, Hx Myocardial Infarction - [place], Hx Pacemaker/ICD, Other Cardiovascular Problems/Disorders - cardiac stent 2012 Denies: Hx Deep Vein Thrombosis, Hx Peripheral Vascular Disease Comment Only: Hx Congestive Heart Failure - unconfirmed Respiratory History: Reports: Hx Chronic Bronchitis, Hx Chronic Obstructive Pulmonary Disease (COPD), Other Respiratory Problems/Disorders - 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, emphysema, uses inhaler Denies: Hx Asthma GI History: Reports: Hx Diverticulosis, Hx Gastroesophageal Reflux Disease, Hx Gastrointestinal Bleed, Hx Obstructive Bowel - twisted bowel that required surgery 1996, Other GI Disorders - chronic stomach pains and bloating History: Reports: Hx Benign Prostatic Hyperplasia Musculoskeletal History: Reports: Other Musculoskeletal History - bilateral pedal edema Denies: Hx Arthritis, Hx Osteoporosis Sensory History: Reports: Hx Contacts or Glasses, Hx Vision Problem - Cant see distance. Denies: Hx Eye Injury Opthamlomology History: Reports: Hx Contacts or Glasses, Hx Vision Problem - Cant see distance. Denies: Hx Eye Injury Neurological History: Denies: Hx Headaches, Hx Seizures, Hx Transient Ischemic Attacks (TIA) Psychiatric History: Reports: Hx Anxiety - Cancer History Cancer Type, Location and Year: "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 Left lung removal of mass. 1 cardiac stent in 2011 Hx Anesthesia Reactions: No Infectious Disease History: No Infectious Disease History: Denies: Traveled Outside the [place] in Last 30 Days - Family History Known Family History: Negative: Cardiac Disease - Social History Occupation: Retired Lives: With Family - Alcohol Use: Occasionally Substance Use Type: Reports: None Hx Tobacco Use: Yes Smoking Status (MU): Former Smoker Type: Cigarettes Have You Smoked in the Last Year: No Review of Systems Negative: Fever, Chills Negative: Erythema Negative: Sore Throat Negative: Chest Pain Positive: Shortness Of Breath. Negative: Cough Positive: Other - Black Stool; one month. Negative: Abdominal Pain, Vomiting, Nausea Negative: dysuria, hematuria Negative: Myalgia, Edema Negative: Rash Neurological: Other - Negative: Dizziness All Other Systems Reviewed And Are Negative: Yes Physical Exam - Summary Physical Exam Summary: Constitutional: Well-developed, Well-nourished, Alert. (-) Distressed. Pale Appearing (+) Skin: Warm, Dry HENT: Normocephalic; Atraumatic Eyes: Conjunctiva normal Neck: Musculoskeletal ROM normal neck. (-) JVD, (-) Stridor, (-) Tracheal deviation Cardio: Rhythm regular, rate normal, Heart sounds normal; Intact distal pulses; The pedal pulses are 2+ and symmetric. Radial pulses are 2+ and symmetric. (-) Murmur Pulmonary/Chest wall: Effort normal. (-) Respiratory distress, (-) Wheezes, (-) Rales Abd: Soft, (-) Tenderness, (-) Distension, (-) Guarding, (-) Rebound Musculoskeletal: (-) Edema Lymph: (-) Cervical adenopathy Neuro: Alert, Oriented x3 Psych: Mood and affect Normal Triage Information Reviewed: Yes Vital Signs On Initial Exam: Initial Vitals Temp Pulse Resp BP Pulse Ox 97.1 F 79 18 117/58 97 01/31/17 20:09 01/31/17 20:09 01/31/17 20:09 01/31/17 20:09 01/31/17 20:09 Vital Signs Reviewed: Yes Diagnostics - Vital Signs Vital Signs Temp Pulse Resp BP Pulse Ox 01/31/17 20:09 97.1 F 79 18 117/58 97 - Laboratory Lab Results: Lab Results 01/31/17 01/31/17 Range/Units 20:24 21:10 WBC 7.1 (3.5-10.8) 10^3/ul RBC 2.75 L (4.0-5.4) 10^6/ul Hgb 7.4 L (14.0-18.0) g/dl Hct 23 L (42-52) % MCV 82 (80-94) fL MCH 27 (27-31) pg MCHC 33 (31-36) g/dl RDW 19 H (10.5-15) % Plt Count 235 (150-450) 10^3/ul MPV 8 (7.4-10.4) um3 Neut % (Auto) 50.3 (38-83) % Lymph % (Auto) 27.0 (25-47) % [place] % (Auto) 11.7 H (1-9) % Eos % (Auto) 10.2 H (0-6) % Baso % (Auto) 0.8 (0-2) % Absolute Neuts (auto) 3.6 (1.5-7.7) 10^3/ul Absolute Lymphs (auto) 1.9 (1.0-4.8) 10^3/ul Absolute Monos (auto) 0.8 (0-0.8) 10^3/ul Absolute Eos (auto) 0.7 H (0-0.6) 10^3/ul Absolute Basos (auto) 0.1 (0-0.2) 10^3/ul Absolute Nucleated RBC 0.01 10^3/ul Nucleated RBC % 0.1 Troponin I 0.01 (<0.04) ng/mL Result Diagrams: 01/31/17 21:10 01/31/17 21:10 Lab Statement: Any lab studies that have been ordered have been reviewed, and results considered in the medical decision making process. Complex Multi-Symp Course/Dx Course Of Treatment: MDM: elected not to administer APCC since vitals were normal. He has had melena for over a month so we suspect slow bleeding. - Diagnoses Provider Diagnoses: Melena, Anemia due to blood loss, Symptomatic anemia - Physician Notifications Discussed Care Of Patient With: Dr Winn (Hospitalist) @ 2124 - Agreed to admit pt Discharge - Discharge Plan Condition: Stable Disposition: ADMITTED TO [facility] documentation as recorded by the Elza russ Alok accurately reflects the service I personally performed and the decisions made by Jayce avalos Jerry, MD.
[2017-02-02] MEDS: Insulin GLARGINE(*) 1 UNITS UNIT SUBCUT SCH (20:18)
[2017-02-03 06:23] LABS: Hematocrit 30 % (42-52); Mean Corpuscular HGB Conc 33 g/dl (31-36); Mean Corpuscular Hemoglobin 28 pg (27-31); Mean Corpuscular Volume 83 fL (80-94); Mean Platelet Volume 7 um3 (7.4-10.4); Red Blood Count 3.63 10^6/ul (4.0-5.4); Red Cell Distribution Width 18 % (10.5-15); White Blood Count 6.8 10^3/ul (3.5-10.8)
[2017-02-03 06:36] LABS: BUN/Creatinine Ratio 14.2 (8-20); Calcium 9.3 mg/dL (8.6-10.3); EGFR African American 81.8 (>60); EGFR Non-African American 63.6 (>60); Potassium 3.7 mmol/L (3.5-5.0)
[2017-02-03] MEDS: Tiotropium CAP.INH* CAP.INH/18 MCG (USE ORDER SET !) INH SCH (07:56)
[2017-02-03] MEDS: Mometasone/Formoter 200/5 MDI INH SCH ×2 (07:57→21:08)
[2017-02-03] MEDS: Insulin LISPRO* 1 UNITS UNIT SUBCUT SCH ×7 (08:33→20:55)
[2017-02-03] MEDS: Aspirin EC Low Dose* 81 MG TAB.EC PO SCH (09:11)
[2017-02-03] MEDS: Omeprazole CAP* 20 MG PO SCH ×2 (09:11→21:03)
[2017-02-03] MEDS: Diltiazem CD CAP* 240 MG PO SCH (09:12)
[2017-02-03] MEDS: Dronedarone TAB* 400 MG PO SCH ×2 (09:23→21:03)
--- NOTE | 2017-02-03 14:32 | PN ---
Subjective Date of Service: 02/03/17 Interval History: HOSPITALIST PROGRESS NOTE Patient seen and examined at bedside. He feels well today, breathing is improved. Denies abdominal pain, tolerating diet well. Family History: Unchanged from Admission Social History: Unchanged from Admission Past Medical History: Unchanged from Admission Objective Active Medications: Acetaminophen (Tylenol Tab*) 650 mg PO Q6H PRN PRN Reason: FEVER/PAIN Albuterol (Ventolin 2.5 Mg/3 Ml Neb.Marilyn*) 2.5 mg INH Q2H PRN PRN Reason: SOB/WHEEZING Last Admin: 02/02/17 08:18 Dose: 2.5 mg Aspirin (Aspirin Ec Low Dose*) 81 mg PO DAILY [facility] Last Admin: 02/03/17 09:11 Dose: 81 mg Diltiazem HCl (Cardizem Cd Cap*) 480 mg PO DAILY WITH MEAL [facility] Last Admin: 02/03/17 09:12 Dose: 480 mg Dronedarone (Multaq Tab*) 400 mg PO BID [facility] Last Admin: 02/03/17 09:23 Dose: 400 mg Insulin Glargine (Lantus(*)) 13 units SUBCUT 2100 [facility] Last Admin: 02/02/17 20:18 Dose: 13 units Insulin Human Lispro (Humalog*) 0 units SUBCUT AC [facility] PRN Reason: Protocol Last Admin: 02/03/17 13:05 Dose: 3 units Insulin Human Lispro (Humalog*) 0 units SUBCUT ACHS [facility] PRN Reason: Protocol Last Admin: 02/03/17 11:47 Dose: 2 units Melatonin (Melatonin (Nf)) 3 mg PO BEDTIME PRN; Protocol PRN Reason: Sleep Mometasone Furoate/Formoterol Fumar (Dulera 200/5 Mdi*) 2 puff INH BID [facility] Last Admin: 02/03/17 07:57 Dose: 2 puff Omeprazole (Prilosec Cap*) 20 mg PO BID [facility] Last Admin: 02/03/17 09:11 Dose: 20 mg Ondansetron HCl (Zofran Inj*) 4 mg IV Q6H PRN PRN Reason: NAUSEA Tiotropium [place] (Spiriva Cap.Inh*) 1 cap INH DAILY [facility] Last Admin: 02/03/17 07:56 Dose: 1 cap Vital Signs 02/02/17 02/02/17 02/03/17 20:56 23:48 07:24 Temperature 98.5 F Pulse Rate 62 66 Respiratory 15 20 17 Rate Blood Pressure 134/51 (mmHg) O2 Sat by Pulse 96 91 Oximetry Oxygen Devices in Use Now: None Appearance: Pleasant gentleman lying in bed in NAD. Eyes: No Scleral Icterus Ears/Nose/Mouth/Throat: Mucous Membranes Moist Neck: Trachea Midline Respiratory: Symmetrical Chest Expansion and Respiratory Effort, Clear to Auscultation Cardiovascular: RRR - Normal S1 and S2 Abdominal: NL Sounds; No Tenderness; No Distention Extremities: No Edema Neurological: Alert and Oriented x 3, NL Muscle Strength and Tone Lines/Tubes/Other Access: Clean, Dry and Intact Peripheral IV Nutrition: Taking PO's Result Diagrams: 02/03/17 06:05 02/03/17 06:05 Assess/Plan/Problems-Billing Assessment: Mr. Bautista is a 71yo M with PMH of CAD s/p NM and stents, type 2 DM, COPD, atrial fibrillation on AC, Afib on Rivaroxaban, tachy-georgina syndrome s/p pacer, prior h/o GI bleed and anemia, HTN, JEANNINE (cannot tolerate CPAP), BPH, recent admission for COPD exacerbation (discharged on steroids), admitted black stools and worsening anemia secondary to upper GI bleed. - Patient Problems (1) Upper GI bleed Comment: - Likely secondary to recent steroids use. - EGD showed gastric erosions. - Continue PPI. - Resume Aspirin. Recommended waiting 1 week before resuming NOAC - may consider Eliquis instead of Xarelto as it causes less GI bleed. (2) Acute blood loss anemia Comment: - S/p 2 PRBC - H/H stable. - Continue to monitor. (3) JEREMY (acute kidney injury) Comment: - Pre-renal in the setting of GI bleed. - Improved. (4) Fluid overload due to blood transfusion Comment: - Resolved. (5) CAD (coronary artery disease) Comment: - Stable. - No chest pain or dyspnea. - Resume Aspirin. (6) Type 2 diabetes mellitus Comment: - A1c 7.1 in December. - Continue Lantus and Lispro SS. - Glipizide on hold. (7) COPD (chronic obstructive pulmonary disease) Comment: - Stable. - Continue bronchodilators and inhaled steroids. (8) Afib Comment: - Continue Multaq and Cardizem. - Rivaroxaban on hold. (9) DVT prophylaxis Comment: - Pharmacological prophylaxis contraindicated in the setting of GI bleed. - SCDs. (10) Full code status Status and Disposition: Inpatient. Anticipate d/c in AM.
[2017-02-03] MEDS: Insulin GLARGINE(*) 1 UNITS UNIT SUBCUT SCH (21:03)
[2017-02-04 07:01] LABS: Hematocrit 31 % (42-52); Hemoglobin 10.4 g/dl (14.0-18.0)
[2017-02-04 07:33] VITALS: BP 130/64
[2017-02-04] MEDS: Insulin LISPRO* 1 UNITS UNIT SUBCUT SCH ×2 (07:34→09:48)
[2017-02-04] MEDS: Diltiazem CD CAP* 240 MG PO SCH (08:24)
[2017-02-04] MEDS: Dronedarone TAB* 400 MG PO SCH (08:24)
[2017-02-04] MEDS: Aspirin EC Low Dose* 81 MG TAB.EC PO SCH (08:24)
[2017-02-04] MEDS: Tiotropium CAP.INH* CAP.INH/18 MCG (USE ORDER SET !) INH SCH (08:25)
[2017-02-04] MEDS: Omeprazole CAP* 20 MG PO SCH (08:25)
[2017-02-04] MEDS: Mometasone/Formoter 200/5 MDI INH SCH (08:25)
--- NOTE | 2017-02-05 00:32 | DS ---
DISCHARGE SUMMARY: DATE OF ADMISSION: 01/31/17 DATE OF DISCHARGE: 02/04/17 PRIMARY CARE PROVIDER: Dr. Alonso, [facility]. PEACE OFFICER: Dr. Morelos. DISCHARGE DIAGNOSES: 1. Upper GI bleed. 2. Gastric erosion likely secondary to steroids. 3. Acute blood loss anemia, status post 2 PRBCs. 4. Acute kidney injury, prerenal. 5. Mild fluid overload due to blood transfusion. SECONDARY DIAGNOSES: 1. Coronary artery disease, status post myocardial infarction and stents. 2. Type 2 diabetes. 3. Chronic obstructive pulmonary disease. 4. Atrial fibrillation. 5. Tachybrady syndrome, status post pacer. 6. Prior history of GI bleed and anemia. 7. Hypertension. 8. Obstructive sleep apnea (cannot tolerate CPAP.) 9. Benign prostatic hypertrophy. 10. Recent admission for chronic obstructive pulmonary disease exacerbation. MEDICATIONS: 1. Ferrous sulfate 325 mg p.o. b.i.d. 2. Diltiazem CD 240 mg p.o. daily with meal. 3. Symbicort 2 puffs inhaled b.i.d. 4. Magnesium oxide 800 mg p.o. daily. 5. Finasteride 5 mg p.o. daily. 6. Spiriva 1 capsule inhaled daily. 7. Valsartan 160 mg p.o. daily. 8. Atorvastatin 60 mg p.o. daily. 9. Aspirin 81 mg p.o. daily. 10. Dronedarone 400 mg p.o. b.i.d. 11. Nitroglycerin 0.4 mg sublingual q.5 minutes p.r.n. chest pain. 12. Metoprolol succinate 50 mg p.o. b.i.d. 13. Glipizide 5 mg p.o. b.i.d. 14. Omeprazole 20 mg p.o. b.i.d. Xarelto was discontinued for now. HOSPITAL COURSE: Mr. Bautista is a 71-year-old male with a past medical history as stated above who presented to the emergency room with complaints of black tarry stools, weakness, and fatigue. For more details about his presentation, I refer you to his history and physical. The patient was found to have initial hemoglobin of 7.4, down from 11.9 on the end of December. He was admitted on the impression of upper GI bleed and of note is the fact that he was recently discharged from the hospital on a steroid taper. He was seen in consultation by Gastroenterology (Dr. Morelos) and taken to an upper endoscopy that showed moderate anterior gastritis with erosion which certainly could be accounting for the patient's GI bleeding. His recommendation was to continue intermediate PPI therapy. The patient received 2 PRBCs and his H and H has been stable around 10/30. After discussion with GI, the recommendation was to resume his aspirin but should wait at least one week before resuming anticoagulation for his atrial fibrillation. I believe Eliquis would be a safer option for this patient as it has lower rate of a GI bleed, but I will defer to his primary care provider to decide. I believe that by next week if he has no further signs of bleeding his Xarelto could be resumed or he could be started on Eliquis. After transfusion, the patient had mild shortness of breath thought to be secondary to fluid overload and he responded well today with furosemide. The patient is medically stable to be discharged home today to follow up with Dr. Alonso as outpatient. PHYSICAL EXAMINATION: Vital Signs: Temperature 98.6, heart rate is 63, respiratory rate 16, oxygen saturation 95% on room air, blood pressure is 130/ 64. General: The patient is a pleasant white male lying in bed, in no acute distress. CVS: Normal S1, S2. Regular rate and rhythm. Chest: Breath sounds bilaterally with no added sounds. Abdomen: Soft, nontender, nondistended. Bowel sounds are present. Extremities: No edema. Neuro: He is alert and oriented x3. Able to move all 4 extremities. DIET: Heart healthy consistent carb diet. ACTIVITY: As tolerated. DISPOSITION: Home. STATUS IN THE HOSPITAL: Inpatient. Please keep in mind this is a summarized version of this patient's hospital stay. If you need more information, please feel free to call me at [phone] or please obtain the full medical records. TIME SPENT: Approximately 45 minutes were spent to complete this discharge. CC: Dr. Alonso; Dr. Morelos * [id number]/CPS #: [id number] MTDD
== END 2017-02-04 10:50 | disposition home or self-care (01) | DRG 811 ==
LOC: ED 20:00 → MEDTELE 21:30 → SSU 02-03 16:49
PROVIDERS: ADMIT Hospitalist; ATTEND Internal Medicine
PROC: 30233N1 Transfusion of Nonautologous Red Blood Cells into Peripheral Vein, Percutaneous Approach (ICD-10-PCS; principal; 2017-01-31)
PROC: 0DB68ZX Excision of Stomach, Via Natural or Artificial Opening Endoscopic, Diagnostic (ICD-10-PCS; 2017-02-01)
PROC: 0DJD8ZZ Inspection of Lower Intestinal Tract, Via Natural or Artificial Opening Endoscopic (ICD-10-PCS; 2017-02-01)
DX: D62 Acute posthemorrhagic anemia (principal); K29.01 Acute gastritis with bleeding; N17.9 Acute kidney failure, unspecified; I49.5 Sick sinus syndrome; I11.9 Hypertensive heart disease without heart failure; E87.71 Transfusion associated circulatory overload; I48.91 Unspecified atrial fibrillation; I25.10 Atherosclerotic heart disease of native coronary artery without angina pectoris; E11.9 Type 2 diabetes mellitus without complications; J44.9 Chronic obstructive pulmonary disease, unspecified; G47.33 Obstructive sleep apnea (adult) (pediatric); K57.30 Diverticulosis of large intestine without perforation or abscess without bleeding; N40.0 Benign prostatic hyperplasia without lower urinary tract symptoms; Z79.01 Long term (current) use of anticoagulants; Z95.5 Presence of coronary angioplasty implant and graft; Z88.5 Allergy status to narcotic agent; Z88.0 Allergy status to penicillin; Z88.8 Allergy status to other drugs, medicaments and biological substances; Z79.82 Long term (current) use of aspirin; Z79.84 Long term (current) use of oral hypoglycemic drugs; Z79.52 Long term (current) use of systemic steroids; Z79.899 Other long term (current) drug therapy; Z95.0 Presence of cardiac pacemaker; Z87.891 Personal history of nicotine dependence; Z82.49 Family history of ischemic heart disease and other diseases of the circulatory system; Z80.1 Family history of malignant neoplasm of trachea, bronchus and lung
CPT/HCPCS: 36415; 80048; 80053; 82272; 84484; 85014; 85018; 85025; 85027; 85610; 85730; 86850; 86900; 86901; 86922; 87077; 87641; 93005; 94640; 94760; A9270-GY; J1940; J2250; J3010; P9040

== ENCOUNTER 2018-06-26 09:28 | Observation (INO) | payer MEDICARE ==
--- OUTSIDE RECORDS SUMMARY | 2018-06-26 10:12 | XMS REPORT ---
:1945 External Reference #:[id number] Author Organization [facility] Address [address] [place] [address] [place] [address] Phone [phone] Care Team Providers Name Role Phone Aakash Alonso MD Primary Care Physician Unavailable Payers Type Date Identification Numbers Payment Provider Subscriber Commercial Effective: Policy Number: [id number] Marjan Singletaryg/Todays Rod Bautista 2013 Options PayID: [id number] [address] [id number] Attn: [place] [address] Problems Date Description Provider Status Onset: 10/24/2011 Syncope and collapse Nurse Visit cc Active Onset: 10/24/2011 Coronary arteriosclerosis Nurse Visit cc Active Onset: 10/24/2011 Benign essential hypertension Nurse Visit cc Active Onset: 02/18/2012 Chest pain Yayo Stone M.D. Active Onset: 11/19/2012 Atrial fibrillation Yayo Stone M.D. Active Onset: 11/19/2012 Pure hypercholesterolemia Yayo Stone M.D. Active Onset: 04/12/2014 Disorder of breast Yayo Stone M.D. Active Onset: 09/09/2014 Hypersomnia with sleep apnea Oswaldo Samson M.D. Active Onset: 02/10/2015 Obstructive sleep apnea syndrome Oswaldo Samson M.D. Active Onset: 09/15/2015 Chronic obstructive lung disease Amelia Yadav MD Active Onset: 04/26/2016 Hypoxemia Amelia Yadav MD Active Onset: 07/24/2016 Acute exacerbation of chronic Amelia Yadav MD Active obstructive airways disease Family History Date Family Member(s) Problem(s) Comments General non contributory Father due to [place] () - age 70's Father [place] at 65yrs Mother Lung Cancer Siblings 8 sisters 1 sister 77 dementia. Onset: (04/23/2015) Siblings sister deased (age 77 Years) First Brother [place] age 55 yrs Second Brother [place] age 60's First Sister Cancer, Breast Second Sister Cancer, Breast Social History Type Date Description Comments Marital Status Lives With Occupation Retired Cigarette Use not smoking ETOH Use Rarely consumes alcohol extremely rare, maybe one drink per year. Formerly drank alcohol more frequently Smoking Patient is a former smoker quit 2008 Recreational Drug Use Denies Drug Use Daily Caffeine Consumes on average 1 cup of regular coffee per day Exercise Type/Frequency Exercises regularly 1/2 mile a day General Hx Text Allergies, Adverse Reactions, Alerts Date Description Reaction Status Severity Comments 10/03/2011 Penicillins active 10/03/2011 Wellbutrin active 11/12/2012 Morphine pruritis, pruritis active 04/20/2015 Xarelto rectal bleeding active 05/20/2015 Seasonal active Medications Medication Date Status Form Strength Qnty SIG Indications Ordering Provider Irbesartan 05/28 Active Tablets 150mg 90tab 1 by I10 Yayo s mouth Ирина Stone, every day M.D. Eliquis 06/21 Active Tablets 5mg 60tab take 1 s tab by Ирина Stone mouth M.D. every 12 hours Nitrostat 12/10 Active Tablets Sub 0.4mg 25tab one sl Vicente S. /2016 s q5min up [place], DO to 3 FACC doses as needed Diltiazem HCL ER 11/30 Active Caps ER 240mg 180ca take 1 Yayo Coated Beads 24HR ps capsule Ирина Stone, by mouth M.D. twice daily Metoprolol 11/30 Active Tablets ER 50mg 180ta take 1 Yayo Succinate ER 24HR bs tablet by Ирина Stone, mouth q12 M.D. hours Atorvastatin 07/24 Active Tablets 40mg 90tab 1 by Amelia s mouth MD Leif every day (take w/20mg Atorvasta in) Atorvastatin 07/23 Active Tablets 20 1 by Unknown Calcium mouth every day (take w/40 mg Atorvasta tin) Symbicort 09/15 Active Aerosol 80-4.5mcg 30.6u 2 puff J44.9 Amelia /2014 /Act nits twice a MD Leif day Ferrous Sulfate Active Tablets 325(65Fe) 1 by Unknown /0000 mg mouth daily Magnesium Oxide Active Tablets 400mg 2 by Unknown /0000 mouth every day 8Am Finasteride Active Tablets 5mg 1 by Unknown /[address] [facility] Aspirin Active Tablets DR 81mg 1 by Unknown Ec /0000 mouth every day Calcium 600 + D Active Tablets 600-800mg 1 by Unknown /0000 mouth daily ( pt is not on) Multaq Active Tablets 400mg 1 tablet Unknown /0000 po b.i.d Am/PM Glipizide Active Tablets 5mg Take 1 Unknown /0000 Tablet By Mouth AT 8 Am And 5 PM [address] C[address] 20mg 1 by Unknown /0000 mouth every day Furosemide Active Tablets 20mg 1 tab by Unknown /0000 mouth once daily in the morning Oxygen Active Misc please Unknown /0000 use o2 at 2l/min at night Xarelto 06/20 Hx Tablets 20mg 30tab 1 by I48.0 s mouth Ирина Stone, - every day M.D. 06/21 (do /2016 restart 06/20/17) Xarelto 11/30 Hx Tablets 20mg take 1 tablet by - mouth 06/19 once daily Prednisone 07/24 Hx Tablets 10mg 90tab 30mg J44.1 s daily for MD Leif - 1 week, 12/05 20mg daily for 1 week, 10 mg daily for 1 week, 5mg for 1 month ( Old - pt has finished in 07/2016) Incruse Ellipta 07/24 Hx Aerosol 62.5mcg/I 30uni 1 J44.1 nh ts inhalatio MD Leif - n once 12/07 daily ( /2016 pt does not use) Diltiazem CD 06/12 Hx Caps ER 120mg 180ca 1 by 24HR ps mouth Ирина Stone, - twice M.D. 12/11 daily Am/8 PM Oxygen 05/21 Hx Misc 1unit please s use o2 at MD Leif - 2l/min at 02/19 night /2016 Prednisone 04/26 Hx Tablets 10mg 42tab 30mg J44.9 s daily for MD Leif - 1 week, 07/23 20mg /2015 daily for 1 week, 10 mg daily for 1 week Valsartan 12/08 Hx Tablets 160mg 90tab take 1 I10 s tablet Ирина Stone, - daily M.D. 05/28 Metoprolol 11/01 Hx Tablets 25mg 30tab 1/2 tab Yayo Tar s by yasmin Stone, - twice a M.D. 12/07 day until 1.19.16 and then 1/2 tablet a day until 1.25.16 and then stop Spiriva Respimat 09/15 Hx Aerosol 2.5mcg/Ac 1unit 2 puffs J44.9 t s every day MD Leif - ( pt does 12/07 not use) /2016 Prednisone 09/15 Hx Tablets 10mg 42tab pt not J44.9 s taking MD Leif - 03/25 Metoprolol 07/21 Hx Tablets ER 25mg 100ta 1 by Yayo Succinate /2014 24HR bs yasmin Stone, - twice a M.D. Warfarin Sodium 04/25 Hx Tablets 2.5mg 90tab as s directed Ирина Stone, - Per Dr. Tristan 07/28 Mausers /2014 office Multaq 04/25 Hx Tablets 400mg 180ta 1 by bs mouth Ирина Stone, - twice a M.D. 10/30 day as of 09.07.15 Nitrostat 04/05 Hx Tablets Sub 0.4mg 25tab one sl Yayo s q5min up Ирина Stone, - to 3 M.D. 07/28 doses as /2015 needed Diltiazem HCL ER 01/21 Hx Caps ER 120mg 300ca 2 by Yayo Coated Beads 24HR ps mouth Ирина Stone, - each M.D. 04/13 and one each evening Protonix 01/[address] 40mg 100ta 1 by Yayo bs mouth Ирина Stone, - every day M.D. 04/13 Metoprolol 12/27 Hx Tablets ER 25mg 90tab 1 by Yayo Succinate 24HR s mouth Ирина Stone, - twice day M.D. 04/13 Cardizem CD 12/16 Hx Caps ER 120mg 300ca 1 by Yayo 24HR ps mouth Ирина Stone, - twice a M.D. Eplerenone 12/16 Hx Tablets 25mg 100ta 1 by N64.9 Yayo bs mouth Ирина Stone, - every day M.D. 12/09 Losartan 12/16 Hx Tablets 50mg 100ta 1 by Yayo bs mouth Ирина Stone, - every day M.D. 01/21 Xarelto 09/09 Hx Tablets 20mg 30tab 1 by Yayo s mouth Ирина Stone, - every day M.D. 04/13 Oxygen 07/19 Hx Misc 1unit 2 l nc at s bedtime Ирина Stone, - 03/08/15 M.D. 10/03 ue Metoprolol 06/15 Hx Tablets 50mg 180ta 1/2 by Estephania Tartrate bs mouth Williams, - twice a M.D. Atorvastatin 06/15 Hx Tablets 80mg 90tab 1/2 by Estephania Calcium s mouth Williams, - every day M.D. 03/25 Nitroglycerin 06/15 Hx Patches 0.2mg/HR 30uni apply one I10 Yayo 24HR ts to chest Ирина Stone, - wall M.D. 12/09 daily in the in the morning and take off at night ( [place] [facility] [place] Diltiazem HCL ER 05/28 Hx Caps ER 120mg 100ca 1 po qd 12HR ps (Hold as Ирина Stone - of [place] 09/2308/31/14 Eplerenone 04/12 Hx Tablets 25mg 60tab 1 by 611.9 s mouth in Ирина Stone, - am and 1 M.D. 12/16 at night Lipitor 07/03 Hx Tablets 40mg 1 po hs Robbi Brower M.Jada 07/03 Atorvastatin 07/03 Hx Tablets 40mg 90tab / po qd s Robbi Brower M.D. 06/14 Aspirin 03/11 Hx Chewtabs 81mg 1 po qd Robbi Brower M.D. 09/09 Lipitor 12/29 Hx Tablets 10mg 45tab 1 po qhs s Robbi Brower M.D. 07/03 Lipitor 12/23 Hx Tablets 20mg 1/2 tab po Ирина Stone - qhs M.DSherie 12/29 Diltiazem CD 12/17 Hx Caps ER 120mg 100ca 1 po qd 24HR ps Robbi Brower M.D. 05/28 Diltiazem CD 12/11 Hx Caps ER 120mg 30cap 1 po qd 24HR s Robbi Brower M.D. 12/11 Diltiazem CD 12/11 Hx Caps ER 120mg 100ca 1 po qd 24HR ps Robbi Brower M.D. 12/17 Losartan 12/11 Hx Tablets 50mg 180ta 1 by bs mouth Ирина Stone, - twice a M.DSherie Diltiazem CD 12/08 Hx Caps ER 120mg 200ca 2 po qd 24HR ps Robbi Brower M.D. 12/08 Diltiazem CD 12/08 Hx Caps ER 120mg 200ca 1 po bid 24HR ps Robbi Brower M.D. 12/11 Lipitor 11/19 Hx Tablets 40mg 90tab 1 po hs Robbi Rojas M.D. 12/23 Simvastatin 05/21 Hx Tablets 40mg 90tab 1 po q charlotte Llody - N.P. 05/21 Simvastatin 05/21 Hx Tablets 40mg 90tab 1 po qhs Robbi Rojas M.D. 11/19 Lisinopril 05/21 Hx Tablets 40mg 90tab 1/2 po qd Robbi Rojas M.D. 11/18 Amlodipine 05/21 Hx Tablets 5mg 100ta 1/2 po qd Robbi Taylor M.D. 07/03 Spironolactone 05/21 Hx Tablets 25mg 100ta 1 by malik Stone, - every day M.DSherie 04/12 ue 6.2.14 Lisinopril 01/03 Hx Tablets 40mg 90tab 1 pill by charlotte Garza, - once per D.O. Aldactone 11/01 Hx Tablets 25mg 90tab 1 po qd charlotte Garza - D.O. 11/18 Lisinopril 10/24 Hx Tablets 20mg 30tab 1 po qd Robbi Rojas M.D. 01/03 Lipitor 10/17 Hx Tablets 20mg 90tab one tab s po q Kayla - D.OSherie 05/21 Diovan HCT 10/10 Hx Tablets 160-12.5m 90tab 1 po qd Robbi Salgado M.D. 10/10 Pantoprazole 10/[address] 40mg 90tab 1 po qd Robbi Rojas M.D. 10/10 Hydrochlorothiazi 10/10 Hx Tablets 25mg 30tab 1 po qd Yayo Robbi Rojas M.D. 11/01 Lisinopril 10/10 Hx Tablets 20mg 30tab 1 po qd Robbi Rojas M.D. 10/24 Aspirin Hx Tablets 81mg 100ta 1 po qd Unknown / bs - 11/[address] 40mg 30cap 1 po qd Unknown / s - 01/03 Nitroglycerin Hx Patches 0.4mg/HR 1bott 1 under Unknown / 24HR le doe, - march 22 repeat Budesonide Hx Suspension 0.5mg/2ML 180un inhaled Unknown /Formoterol / its bid Inhaler - 10/10 Simvastatin Hx Tablets 20mg 30tab 1 po qd Unknown / s - 10/10 Amlodipine Hx Tablets 10mg 90tab 1 po qd Yayo Besylate Robbi Rojas M.D. 11/18 Lisinopril Hx Tablets 20mg 90tab 1 po qd Unknown / s - 10/10 Metoprolol Hx Tablets 25mg 180ta 1/2 Yayo Tartrate bs tablet po Ирина Stone, - bid( pt [place] 06/14 states has been doing this for months now) Plavix Hx Tablets 75mg 90tab 1 po qd Isela /0000 charlotte Garza - D.OSherie 04/13 Multi-Vitamin Hx Tablets 100ta 1 po qd Unknown /0000 bs - 10/10 Vitamin E Hx Capsules 1 po qd Unknown / - 10/10 Advair Diskus Hx Aerosol 250-50mcg 1unit 1 puff po Unknown / /Dose s bid - 10/10 Symbicort 00 Hx Aerosol 160-4.5mc 1unit 2 puffs Yayo / g/Act s twice a Ирина Stone, - day as MNate 08/23 Pantoprazole 00/[address] 40mg 90tab 1 po qd Unknown Sodium /0000 s - 10/10 Hytrin 00/00 Hx Capsules 1mg 90cap 1 pill by Unknown /0000 s mouth - daily 06/14 Omeprazole 00/[address] 40mg 30cap 1 po qd Unknown /0000 s - 11/18 Aspirin 00/ Hx Tablets 325mg 1 po qd Unknown /0000 - 03/11 Pradaxa 00/ Hx Capsules 150mg 60cap po bid Yayo /0000 s Ирина Stone - M.DSherie 04/12 Diltiazem CD 00/ Hx Caps ER 120mg 90cap 1 po qd Unknown /0000 24HR s - 12/08 Ferrous Sulfate 00 Hx Tablets 325(65Fe) 30tab 1 po bid Unknown /0000 mg s - 06/14 Omeprazole 00/ Hx Capsules DR 20mg 1 po qd Unknown /0000 - 01/21 Finasteride 00 Hx Tablets 5mg 90tab 1 po qd Unknown /0000 s - 04/13 Colace Hx Capsules 100mg 60cap 1 po qd Unknown /0000 s - 06/28 Amlodipine 0000 Hx Tablets 2.5mg 100ta 1 by Unknown Besylate /0000 bs mouth - twice a Centrum Silver 0000 Hx Tablets Adult 50 1 by Unknown Adult 50+ /0000 mouth - every day 12/09 Spironolactone 00 Hx Tablets 25mg 90tab 1 by Unknown /0000 s mouth - every day 09/23 (Stop 09/23/14 duplicate with kyle deal) Cardizem CD 0000 Hx Caps ER 120mg 90cap 1 by Yayo /0000 24HR s mouth Ирина Stone, - every day M.D. 12/16 Losartan 0000 Hx Tablets 50mg 180ta 1 by Yayo Potassium /0000 bs mouth Ирина Stone, - twice a M.D. Multaq 00/00 Hx 180 1 po bid Yayo /0000 Robbi Brower M.DSherie 04/25 Omeprazole 00/[address] 20mg 1 by Unknown /0000 mouth - every day 10/31 Terazosin HCL Hx Capsules 1mg 1 by Unknown /0000 mouth - every day 10/31 Metoprolol Hx Tablets 25mg 180ta 2 tabs in Yayo Tartrate /0000 bs am and 1 FSherie Stone, - tab in pm M.D. 07/21 Warfarin Sodium Hx 90 as Unknown /0000 directed - per 04/25 Bertha Potassium Hx Tablets ER 20Meq 1 by Unknown Chloride ER /0000 mouth - every day 04/21 Albuterol Sulfate Hx Inhaler 2 puffs Unknown /0000 inhaled - every 4-6 10/31 hours needed Spiriva Respimat Hx Aerosol 2.5mcg/Ac 2 puffs Unknown / t every day - 09/15 Diltiazem HCL ER Hx Caps ER 120mg 270ca 2 by Yayo /0000 12HR ps mouth Ирина Stone, - each in M.D. 06/12 morning and 1 each at night Prednisone Hx Tablets 50mg Take 1 [place], tablet po Ramón, - once MD 12/10 daily x days ( finished ) Diltiazem HCL ER Hx Caps ER 120mg take 2 Unknown Coated Beads / 24HR capsules - by mouth 12/09 Medications Administered in Office Medication Date Status Form Strength Qnty SIG Indications Ordering Provider Inj, Administered Injection Sudeep Alfaro Regadenoson, 015 Haddad, 0.1 MG M.D., FACC, FASNC Inj, Administered Injection Yayo FSherie Regadenoson, 015 Mauser, 0.1 MG M.D. Technetium TC Administered Injection Sudeep Alfaro 99M 015 Rashel Haddad M.D., FACC, Per Unit Dose FASNC Up To 40 Millicuries Technetium TC Administered Injection Yayo FSherie 99M 015 Rashel Stone M.DSherie Per Unit Dose Up To 40 Millicuries Inj, Administered Injection Drew Elias Regadenoson, 014 Noel MchughD. 0.1 MG Technetium TC Administered Injection Drew DSherie 99M 014 [place] Mchugh Tetrofosmin, Per Unit Dose Up To 40 Millicuries Vital Signs Date Vital Result Comment 06/11/2018 Height 71 inches 5'11" Weight 188.00 lb W/O Shoes Heart Rate 82 /min BP Systolic Sitting 150 mmHg Lue Reg Cuff BP Diastolic Sitting 80 mmHg Lue Reg Cuff BP Systolic Standing 128 mmHg la repeat sit BP Diastolic Standing 82 mmHg la repeat sit BMI (Body Mass Index) 26.2 kg/m2 Ejection Fraction 55-60% ECHO 12/12/16 02/21/2018 Height 71 inches 5'11" Weight 184.00 lb Heart Rate 64 /min BP Systolic Sitting 130 mmHg BP Diastolic Sitting 68 mmHg Respiratory Rate 14 /min O2 % BldC Oximetry 96 % BMI (Body Mass Index) 25.7 kg/m2 10/01/2017 Height 71 inches 5'11" Weight 168.25 lb With Shoes Heart Rate 64 /min BP Systolic Sitting 150 mmHg LA reg cuff BP Diastolic Sitting 86 mmHg LA reg cuff BP Systolic Standing 132 mmHg la repeat sitting BP Diastolic Standing 61 mmHg la repeat sitting BMI (Body Mass Index) 23.5 kg/m2 Ejection Fraction 55%-60% echo 12/12/16 08/23/2017 Height 71 inches 5'11" Weight 173.00 lb Heart Rate 68 /min BP Systolic Sitting 128 mmHg BP Diastolic Sitting 82 mmHg Respiratory Rate 14 /min O2 % BldC Oximetry 96 % BMI (Body Mass Index) 24.1 kg/m2 06/20/2017 Height 71 inches 5'11" Weight 178.25 lb Heart Rate 76 /min BP Systolic Sitting 142 mmHg LA reg cuff BP Diastolic Sitting 86 mmHg LA reg cuff BMI (Body Mass Index) 24.9 kg/m2 Ejection Fraction 55% - 60% echo 12/12/16 03/20/2017 Height 71 inches 5'11" Weight 69.75 lb w/shoes Heart Rate 64 /min BP Systolic Sitting 124 mmHg LA, regular BP Diastolic Sitting 64 mmHg LA, regular BMI (Body Mass Index) 9.7 kg/m2 Ejection Fraction 55-60% echo 12/12/16 02/20/2017 Height 71 inches 5'11" Weight 171.00 lb Heart Rate 67 /min BP Systolic Sitting 110 mmHg BP Diastolic Sitting 52 mmHg Respiratory Rate 18 /min Pain Level 0 O2 % BldC Oximetry 95 % BMI (Body Mass Index) 23.8 kg/m2 12/26/2016 Height 71 inches 5'11" Heart Rate 68 /min BP Systolic Sitting 112 mmHg Lue, regular cuff BP Diastolic Sitting 70 mmHg Lue, regular cuff Respiratory Rate 18 /min 12/24/2016 Height 71 inches 5'11" Weight 172.00 lb with shoes Heart Rate 66 /min BP Systolic Sitting 120 mmHg Lue reg cuff BP Diastolic Sitting 60 mmHg Lue reg cuff BP Systolic Standing 130 mmHg Lue reg cuff BP Diastolic Standing 60 mmHg Lue reg cuff Respiratory Rate 17 /min BMI (Body Mass Index) 24.0 kg/m2 Ejection Fraction 55-60% date 12/12/16 ECHO 12/10/2016 Height 71 inches 5'11" Heart Rate 66 /min BP Systolic Sitting 124 mmHg Rue reg cuff BP Diastolic Sitting 72 mmHg Rue reg cuff BP Systolic Standing 112 mmHg Rue reg cuff BP Diastolic Standing 70 mmHg Rue reg cuff Respiratory Rate 16 /min Ejection Fraction 65-70% date 08/03/2015 ECHO 07/24/2016 Height 71 inches 5'11" Weight 176.00 lb Heart Rate 78 /min BP Systolic Sitting 138 mmHg BP Diastolic Sitting 78 mmHg Respiratory Rate 20 /min O2 % BldC Oximetry 92 % BMI (Body Mass Index) 24.5 kg/m2 04/26/2016 Height 71 inches 5'11" Weight 174.00 lb Heart Rate 76 /min BP Systolic Sitting 120 mmHg BP Diastolic Sitting 64 mmHg Respiratory Rate 14 /min O2 % BldC Oximetry 96 % BMI (Body Mass Index) 24.3 kg/m2 04/25/2016 Height 71 inches 5'11" Weight 174.00 lb w/ shoes Heart Rate 78 /min reg BP Systolic Sitting 116 mmHg Lue, reg cuff BP Diastolic Sitting 84 mmHg Lue, reg cuff BP Systolic Standing 118 mmHg Lue BP Diastolic Standing 84 mmHg Lue Respiratory Rate 18 /min BMI (Body Mass Index) 24.3 kg/m2 Ejection Fraction 65-70% as of 08/03/15 echo 12/23/2015 Height 71 inches 5'11" Weight 181.00 lb with out shoes Heart Rate 78 /min BP Systolic 162 mmHg LA reg cuff BP Diastolic 82 mmHg LA reg cuff BP Systolic Standing 156 mmHg LA reg cuff BP Diastolic Standing 80 mmHg LA reg cuff Respiratory Rate 18 /min BMI (Body Mass Index) 25.2 kg/m2 Ejection Fraction 65-70% 08/03/15 12/08/2015 Height 71 inches 5'11" Weight 181.00 lb Heart Rate 76 /min BP Systolic Sitting 165 mmHg LA, reg BP Diastolic Sitting 82 mmHg LA, reg BP Systolic Standing 163 mmHg LA, reg BP Diastolic Standing 84 mmHg LA, reg BMI (Body Mass Index) 25.2 kg/m2 11/22/2015 Height 71 inches 5'11" Weight 179.25 lb with shoes Heart Rate 64 /min BP Systolic Sitting 148 mmHg LA, regular cuff BP Diastolic Sitting 82 mmHg LA, regular cuff BMI (Body Mass Index) 25.0 kg/m2 Ejection Fraction 65-70% echo 08/03/15 11/01/2015 Height 71 inches 5'11" Weight 180.25 lb w/shoes Heart Rate 64 /min BP Systolic Sitting 168 mmHg LA reg cuff BP Diastolic Sitting 90 mmHg LA reg cuff BMI (Body Mass Index) 25.1 kg/m2 Ejection Fraction 65-70 echo 08/03/15 10/27/2015 Height 71 inches 5'11" Weight 178.25 lb Heart Rate 67 /min BP Systolic Sitting 142 mmHg BP Diastolic Sitting 74 mmHg Respiratory Rate 18 /min O2 % BldC Oximetry 96 % BMI (Body Mass Index) 24.9 kg/m2 09/15/2015 Height 71 inches 5'11" Weight 182.00 lb Heart Rate 82 /min BP Systolic Sitting 138 mmHg BP Diastolic Sitting 70 mmHg Respiratory Rate 18 /min O2 % BldC Oximetry 98 % BMI (Body Mass Index) 25.4 kg/m2 Neck Circumference in inches 17.5 09/07/2015 Height 69 inches 5'9" Weight 183.50 lb w/shoes Heart Rate 92 /min BP Systolic Sitting 146 mmHg LA reg cuff BP Diastolic Sitting 84 mmHg LA reg cuff BP Systolic Standing 118 mmHg la repeat sitting BP Diastolic Standing 62 mmHg la repeat sitting BMI (Body Mass Index) 27.1 kg/m2 Ejection Fraction 65-70 echo 08/03/15 07/29/2015 Height 69 inches 5'9" Weight 185.00 lb Heart Rate 66 /min BP Systolic Sitting 122 mmHg left arm, reg cuff BP Diastolic Sitting 70 mmHg left arm, reg cuff BP Systolic Standing 116 mmHg left arm, reg cuff BP Diastolic Standing 70 mmHg left arm, reg cuff Respiratory Rate 16 /min BMI (Body Mass Index) 27.3 kg/m2 Ejection Fraction 55-60% 03/28/15 07/21/2015 Height 69 inches 5'9" Weight 183.75 lb w/ shoes Heart Rate 66 /min BP Systolic Sitting 170 mmHg LA, reg BP Diastolic Sitting 88 mmHg LA, reg O2 % BldC Oximetry 96 % room air BMI (Body Mass Index) 27.1 kg/m2 Ejection Fraction 55-60% 03/28/15 Klaus 05/20/2015 Height 69 inches 5'9" Weight 192.00 lb w/o shoes Heart Rate 66 /min reg BP Systolic 150 mmHg Rue, reg cuff BP Diastolic 80 mmHg Rue, reg cuff BP Systolic Sitting 160 mmHg 18 BP Diastolic Sitting 82 mmHg 18 BMI (Body Mass Index) 28.4 kg/m2 Ejection Fraction 60-65% as of 11/29/14 echo 04/28/2015 Height 69 inches 5'9" Weight 193.00 lb with shoes Heart Rate 82 /min BP Systolic Sitting 130 mmHg Ra reg cuff BP Diastolic Sitting 80 mmHg Ra reg cuff Respiratory Rate 17 /min O2 % BldC Oximetry 95 % at room air BMI (Body Mass Index) 28.5 kg/m2 04/20/2015 Height 69 inches 5'9" Weight 191.00 lb Heart Rate 76 /min BP Systolic Sitting 142 mmHg LA reg cuff BP Diastolic Sitting 80 mmHg LA reg cuff BP Systolic Standing 136 mmHg LA BP Diastolic Standing 72 mmHg LA Respiratory Rate 18 /min BMI (Body Mass Index) 28.2 kg/m2 Ejection Fraction 55-60% 03/28/15 Klaus 02/10/2015 Height 69 inches 5'9" Weight 195.19 lb Heart Rate 88 /min BP Systolic Sitting 158 mmHg BP Diastolic Sitting 88 mmHg Respiratory Rate 20 /min O2 % BldC Oximetry 98 % BMI (Body Mass Index) 28.8 kg/m2 01/20/2015 Height 71 inches 5'11" Weight 199.00 lb Heart Rate 64 /min BP Systolic Sitting 154 mmHg LA reg cuff BP Diastolic Sitting 84 mmHg LA reg cuff BP Systolic Standing 150 mmHg LA BP Diastolic Standing 80 mmHg LA Respiratory Rate 18 /min BMI (Body Mass Index) 27.8 kg/m2 12/16/2014 Height 71 inches 5'11" Weight 199.00 lb Heart Rate 70 /min BP Systolic 152 mmHg LA reg BP Diastolic 74 mmHg LA reg BMI (Body Mass Index) 27.8 kg/m2 12/15/2014 Heart Rate 76 /min BP Systolic 164 mmHg LA reg BP Diastolic 74 mmHg LA reg 11/23/2014 Height 71 inches 5'11" Weight 198.00 lb Heart Rate 68 /min BP Systolic Sitting 150 mmHg right arm, reg cuff BP Diastolic Sitting 80 mmHg right arm, reg cuff BP Systolic Standing 146 mmHg right arm, reg cuff BP Diastolic Standing 76 mmHg right arm, reg cuff Respiratory Rate 16 /min BMI (Body Mass Index) 27.6 kg/m2 10/27/2014 Height 71 inches 5'11" Weight 202.00 lb with shoes Heart Rate 60 /min BP Systolic Sitting 154 mmHg LA, reg cuff BP Diastolic Sitting 82 mmHg LA, reg cuff BP Systolic Standing 152 mmHg LA BP Diastolic Standing 86 mmHg LA Respiratory Rate 16 /min BMI (Body Mass Index) 28.2 kg/m2 10/26/2014 Height 71 inches 5'11" Weight 201.25 lb with shoes Heart Rate 60 /min BP Systolic Sitting 180 mmHg La reg cuff BP Diastolic Sitting 90 mmHg La reg cuff Respiratory Rate 17 /min BMI (Body Mass Index) 28.1 kg/m2 09/23/2014 Height 71 inches 5'11" Weight 203.00 lb with shoes Heart Rate 60 /min BP Systolic Sitting 156 mmHg LA, reg cuff BP Diastolic Sitting 82 mmHg LA, reg cuff BP Systolic Standing 152 mmHg LA BP Diastolic Standing 84 mmHg LA Respiratory Rate 16 /min BMI (Body Mass Index) 28.3 kg/m2 09/09/2014 Height 71 inches 5'11" Weight 199.00 lb Heart Rate 64 /min BP Systolic Sitting 170 mmHg left arm, reg cuff BP Diastolic Sitting 82 mmHg left arm, reg cuff Respiratory Rate 16 /min O2 % BldC Oximetry 98 % Room air BMI (Body Mass Index) 27.8 kg/m2 Neck Circumference in inches 18.25 08/31/2014 Height 71 inches 5'11" Weight 200.50 lb Heart Rate 52 /min BP Systolic Sitting 130 mmHg LA reg cuff BP Diastolic Sitting 76 mmHg LA reg cuff Respiratory Rate 15 /min BMI (Body Mass Index) 28.0 kg/m2 06/28/2014 Height 71 inches 5'11" Weight 198.25 lb w/shoes Heart Rate 64 /min BP Systolic Sitting 132 mmHg BP Diastolic Sitting 68 mmHg Respiratory Rate 16 /min BMI (Body Mass Index) 27.6 kg/m2 06/15/2014 Height 71 inches 5'11" Weight 196.50 lb with shoes Heart Rate 52 /min reg BP Systolic Sitting 144 mmHg LA reg cuff BP Diastolic Sitting 80 mmHg LA reg cuff BP Systolic Standing 134 mmHg LA reg cuff BP Diastolic Standing 80 mmHg LA reg cuff Respiratory Rate 16 /min BMI (Body Mass Index) 27.4 kg/m2 04/12/2014 Height 70 inches 5'10" Weight 197.00 lb Heart Rate 56 /min BP Systolic Sitting 138 mmHg BP Diastolic Sitting 68 mmHg Respiratory Rate 16 /min BMI (Body Mass Index) 28.3 kg/m2 10/12/2013 Height 70 inches 5'10" Weight 199.00 lb BP Systolic Sitting 160 mmHg BP Diastolic Sitting 84 mmHg BMI (Body Mass Index) 28.6 kg/m2 07/03/2013 Height 70 inches 5'10" Weight 196.00 lb Heart Rate 58 /min BP Systolic Sitting 154 mmHg BP Diastolic Sitting 64 mmHg BMI (Body Mass Index) 28.1 kg/m2 03/11/2013 Height 70 inches 5'10" Weight 197.00 lb Heart Rate 56 /min BP Systolic 138 mmHg BP Diastolic 80 mmHg BMI (Body Mass Index) 28.3 kg/m2 12/31/2012 Height 70 inches 5'10" Weight 187.00 lb Heart Rate 60 /min BP Systolic 136 mmHg BP Diastolic 77 mmHg Respiratory Rate 16 /min BMI (Body Mass Index) 26.8 kg/m2 12/19/2012 Heart Rate 60 /min BP Systolic Sitting 160 mmHg BP Diastolic Sitting 88 mmHg Respiratory Rate 20 /min 12/17/2012 Height 70 inches 5'10" Weight 190.00 lb Heart Rate 52 /min BP Systolic 200 mmHg BP Diastolic 100 mmHg Respiratory Rate 16 /min BMI (Body Mass Index) 27.3 kg/m2 12/11/2012 Height 70 inches 5'10" Weight 188.00 lb Heart Rate 52 /min BP Systolic 162 mmHg BP Diastolic 78 mmHg BMI (Body Mass Index) 27.0 kg/m2 12/08/2012 Height 70 inches 5'10" Weight 189.00 lb Heart Rate 70 /min BP Systolic 180 mmHg BP Diastolic 80 mmHg Respiratory Rate 16 /min BMI (Body Mass Index) 27.1 kg/m2 11/19/2012 Height 70 inches 5'10" Weight 189.00 lb Heart Rate 56 /min BP Systolic 120 mmHg BP Diastolic 70 mmHg Respiratory Rate 16 /min BMI (Body Mass Index) 27.1 kg/m2 07/09/2012 Height 70 inches 5'10" Weight 194.25 lb Heart Rate 68 /min Regular BP Systolic Sitting 152 mmHg States home BP this am was 140/68 BP Diastolic Sitting 70 mmHg States home BP this am was 140/68 BMI (Body Mass Index) 27.9 kg/m2 05/21/2012 Height 70 inches 5'10" Weight 197.00 lb Heart Rate 68 /min BP Systolic 150 mmHg BP Diastolic 82 mmHg O2 % BldC Oximetry 98 % BMI (Body Mass Index) 28.3 kg/m2 02/05/2012 Height 70 inches 5'10" Weight 197.00 lb Heart Rate 58 /min BP Systolic 126 mmHg BP Diastolic 68 mmHg BMI (Body Mass Index) 28.3 kg/m2 01/10/2012 Height 70 inches 5'10" Weight 196.00 lb Heart Rate 60 /min BP Systolic Sitting 164 mmHg BP Diastolic Sitting 70 mmHg BMI (Body Mass Index) 28.1 kg/m2 01/03/2012 Height 70 inches 5'10" Weight 196.00 lb Heart Rate 66 /min BP Systolic 164 mmHg BP Diastolic 76 mmHg BMI (Body Mass Index) 28.1 kg/m2 12/17/2011 Height 70 inches 5'10" Weight 192.00 lb Heart Rate 16 /min BP Systolic 160 mmHg BP Diastolic 80 mmHg Respiratory Rate 16 /min BMI (Body Mass Index) 27.5 kg/m2 10/24/2011 Height 70 inches 5'10" Heart Rate 56 /min BP Systolic 164 mmHg BP Diastolic 88 mmHg Respiratory Rate 16 /min 10/10/2011 Height 70 inches 5'10" Weight 195.00 lb Heart Rate 55 /min BP Systolic 164 mmHg BP Diastolic 98 mmHg BMI (Body Mass Index) 28.0 kg/m2 Results Test Date Test Result H/L Range Note CBC Auto Diff 10/01/2017 White Blood Count 7.0 10^3/uL 3.5-10.8 Red Blood Count 5.36 10^6/uL 4.0-5.4 Hemoglobin 13.7 g/dL Low 14.0-18.0 Hematocrit 41 % Low 42-52 Mean Corpuscular Volume 76 fL Low 80-94 Mean Corpuscular Hemoglobin 26 pg Low 27-31 Mean Corpuscular HGB Conc 34 g/dL 31-36 Red Cell Distribution Width 15 % 10.5-15 Platelet Count 249 10^3/uL 150-450 Mean Platelet Volume 8 um3 7.4-10.4 Abs Neutrophils 4.3 10^3/uL 1.5-7.7 Abs Lymphocytes 1.5 10^3/uL 1.0-4.8 Abs Monocytes 0.9 10^3/uL High 0-0.8 Abs Eosinophils 0.3 10^3/uL 0-0.6 Abs Basophils 0.1 10^3/uL 0-0.2 Abs Nucleated RBC 0 10^3/uL Granulocyte % 61.0 % 38-83 Lymphocyte % 21.3 % Low 25-47 Monocyte % 12.3 % High 1-9 Eosinophil % 4.5 % 0-6 Basophil % 0.9 % 0-2 Nucleated Red Blood Cells % 0.1 Laboratory test finding 10/01/2017 B-Type Natriuretic Peptide 76 pg/mL 1 BNP Iron & Iron Binding 10/01/2017 Iron 33 g/dL Low 50-212 Capacity Unsaturated Iron Binding 318 g/dL Total Iron Binding Capacity 351 g/dL 250-450 % Iron Saturation 9 % Low 15-55 Comp Metabolic Panel 10/01/2017 Sodium 136 mmol/L 133-145 Potassium 4.5 mmol/L 3.5-5.0 Chloride 98 mmol/L Low 101-111 Co2 Carbon Dioxide 32 mmol/L 22-32 Anion Gap 6 mmol/L 2-11 Glucose 139 mg/dL High 70-100 Blood Urea Nitrogen 25 mg/dL High 6-24 Creatinine 1.38 mg/dL High 0.67-1.17 BUN/Creatinine Ratio 18.1 8-20 Calcium 9.2 mg/dL 8.6-10.3 Total Protein 6.9 g/dL 6.4-8.9 Albumin 3.8 g/dL 3.2-5.2 Globulin 3.1 g/dL 2-4 Albumin/Globulin Ratio 1.2 1-3 Total Bilirubin 0.70 mg/dL 0.2-1.0 Alkaline Phosphatase 62 U/L 34-104 Alt 14 U/L 7-52 Ast 23 U/L 13-39 Egfr Non- 50.4 >60 Egfr 64.8 >60 2 Basic Metabolic Panel 07/29/2017 Sodium 138 mmol/L 133-145 3 Potassium 4.5 mmol/L 3.5-5.0 3 Chloride 99 mmol/L Low 101-111 3 Co2 Carbon Dioxide 36 mmol/L High 22-32 3 Anion Gap 3 mmol/L 2-11 3 Glucose 112 mg/dL High 70-100 3 Blood Urea Nitrogen 23 mg/dL 6-24 3 Creatinine 1.02 mg/dL 0.67-1.17 3 BUN/Creatinine Ratio 22.5 High 8-20 3 Calcium 10.2 mg/dL 8.6-10.3 3 Egfr Non- 71.4 >60 3 Egfr 91.8 >60 3, 4 Laboratory test 07/29/2017 Magnesium 2.0 mg/dL 1.9-2.7 3, 5 finding Laboratory test 06/20/2017 B-Type Natriuretic 102 pg/mL High 6 finding Peptide BNP CBC Auto Diff 06/20/2017 White Blood Count 9.1 10^3/uL 3.5-10.8 Red Blood Count 5.72 10^6/uL High 4.0-5.4 Hemoglobin 14.1 g/dL 14.0-18.0 Hematocrit 43 % 42-52 Mean Corpuscular Volume 75 fL Low 80-94 Mean Corpuscular Hemoglobin 25 pg Low 27-31 Mean Corpuscular HGB Conc 33 g/dL 31-36 Red Cell Distribution Width 20 % High 10.5-15 Platelet Count 207 10^3/uL 150-450 Mean Platelet Volume 9 um3 7.4-10.4 Abs Neutrophils 5.0 10^3/uL 1.5-7.7 Abs Lymphocytes 2.2 10^3/uL 1.0-4.8 Abs Monocytes 1.2 10^3/uL High 0-0.8 Abs Eosinophils 0.6 10^3/uL 0-0.6 Abs Basophils 0.1 10^3/uL 0-0.2 Abs Nucleated RBC 0 10^3/uL Granulocyte % 55.2 % 38-83 Lymphocyte % 24.0 % Low 25-47 Monocyte % 13.3 % High 1-9 Eosinophil % 6.8 % High 0-6 Basophil % 0.7 % 0-2 Nucleated Red Blood Cells % 0 Comp Metabolic Panel 06/20/2017 Sodium 139 mmol/L 133-145 Potassium 4.6 mmol/L 3.5-5.0 Chloride 101 mmol/L 101-111 Co2 Carbon Dioxide 32 mmol/L 22-32 Anion Gap 6 mmol/L 2-11 Glucose 80 mg/dL 70-100 Blood Urea Nitrogen 26 mg/dL High 6-24 Creatinine 1.74 mg/dL High 0.67-1.17 BUN/Creatinine Ratio 14.9 8-20 Calcium 9.4 mg/dL 8.6-10.3 Total Protein 7.0 g/dL 6.4-8.9 Albumin 4.0 g/dL 3.2-5.2 Globulin 3.0 g/dL 2-4 Albumin/Globulin Ratio 1.3 1-3 Total Bilirubin 0.60 mg/dL 0.2-1.0 Alkaline Phosphatase 70 U/L 34-104 Alt 17 U/L 7-52 Ast 20 U/L 13-39 Egfr Non- 38.7 >60 Egfr 49.7 >60 7 Laboratory test finding 06/20/2017 Magnesium 2.1 mg/dL 1.9-2.7 Iron & Iron Binding Capacity 06/20/2017 Iron 51 g/dL 50-212 Unsaturated Iron Binding 309 g/dL Total Iron Binding Capacity 360 g/dL 250-450 % Iron Saturation 14 % Low 15-55 Lipid Profile (Trig/Chol/HDL) 06/20/2017 Triglycerides 136 mg/dL 8 Cholesterol 121 mg/dL 9 HDL Cholesterol 48.6 mg/dL 10 LDL Cholesterol 45 mg/dL 11 Laboratory test finding 06/20/2017 Creatine Kinase(CK) 132 U/L 10-223 Laboratory test finding 11/23/2015 B-Type Natriuretic 22 pg/mL 12 Peptide BNP CBC Auto Diff 11/23/2015 White Blood Count 7.6 10^3/uL 3.5-10.8 Red Blood Count 5.89 10^6/uL High 4.0-5.4 Hemoglobin 15.8 g/dL 14.0-18.0 Hematocrit 48 % 42-52 Mean Corpuscular Volume 81 fL 80-94 Mean Corpuscular Hemoglobin 27 pg 27-31 Mean Corpuscular HGB Conc 33 g/dL 31-36 Red Cell Distribution Width 16 % High 10.5-15 Platelet Count 266 10^3/uL 150-450 Mean Platelet Volume 8 um3 7.4-10.4 Abs Neutrophils 4.0 10^3/uL 1.5-7.7 Abs Lymphocytes 2.2 10^3/uL 1.0-4.8 Abs Monocytes 0.9 10^3/uL High 0-0.8 Abs Eosinophils 0.5 10^3/uL 0-0.6 Abs Basophils 0.1 10^3/uL 0-0.2 Abs Nucleated RBC 0.01 10^3/uL Granulocyte % 52.1 % 38-83 Lymphocyte % 28.7 % 25-47 Monocyte % 11.7 % High 1-9 Eosinophil % 6.5 % High 0-6 Basophil % 1.0 % 0-2 Nucleated Red Blood Cells % 0.1 Basic Metabolic Panel 11/23/2015 Sodium 139 mmol/L 133-145 Potassium 4.5 mmol/L 3.5-5.0 Chloride 101 mmol/L 101-111 Co2 Carbon Dioxide 31 mmol/L 22-32 Anion Gap 7 mmol/L 2-11 Glucose 101 mg/dL High 70-100 Blood Urea Nitrogen 18 mg/dL 6-24 Creatinine 1.20 mg/dL High 0.67-1.17 BUN/Creatinine Ratio 15.0 8-20 Calcium 10.5 mg/dL High 8.6-10.3 Egfr Non- 59.5 >60 Egfr 76.5 >60 13 Laboratory test finding 11/23/2015 Magnesium 2.0 mg/dL 1.9-2.7 Laboratory test finding 07/22/2015 Magnesium 1.6 mg/dL Low 1.9-2.7 B-Type Natriuretic Peptide BNP 145 pg/mL High 14 CBC Auto Diff 07/22/2015 White Blood Count 8.5 10^3/uL 4.8-10.8 Red Blood Count 5.74 10^6/uL High 4.0-5.4 Hemoglobin 15.3 g/dL 14.0-18.0 Hematocrit 46 % 42-52 Mean Corpuscular Volume 80 fL 80-94 Mean Corpuscular Hemoglobin 27 pg 27-31 Mean Corpuscular HGB Conc 33 g/dL 31-36 Red Cell Distribution Width 14 % 10.5-15 Platelet Count 210 10^3/uL 150-450 Mean Platelet Volume 8 um3 7.4-10.4 Abs Neutrophils 4.4 10^3/uL 1.5-7.7 Abs Lymphocytes 2.3 10^3/uL 1.0-4.8 Abs Monocytes 0.7 10^3/uL 0-0.8 Abs Eosinophils 1.0 10^3/uL High 0-0.6 Abs Basophils 0.1 10^3/uL 0-0.2 Abs Nucleated RBC 0.01 10^3/uL Granulocyte % 51.5 % 38-83 Lymphocyte % 26.9 % 25-47 Monocyte % 8.7 % 1-9 Eosinophil % 12.0 % High 0-6 Basophil % 0.9 % 0-2 Nucleated Red Blood Cells % 0.1 Lipid Profile (Trig/Chol/HDL) 07/22/2015 Triglycerides 123 mg/dL 15 Cholesterol 155 mg/dL 16 HDL Cholesterol 32.5 mg/dL 17 LDL Cholesterol 98 mg/dL 18 Comp Metabolic Panel 07/22/2015 Sodium 139 mmol/L 133-145 Potassium 4.3 mmol/L 3.5-5.0 Chloride 101 mmol/L 101-111 Co2 Carbon Dioxide 31 mmol/L 22-32 Anion Gap 7 mmol/L 2-11 Glucose 111 mg/dL High 70-100 Blood Urea Nitrogen 17 mg/dL 6-24 Creatinine 1.16 mg/dL 0.67-1.17 BUN/Creatinine Ratio 14.7 8-20 Calcium 9.6 mg/dL 8.6-10.3 Total Protein 7.1 g/dL 6.4-8.9 Albumin 4.1 g/dL 3.2-5.2 Globulin 3.0 g/dL 2-4 Albumin/Globulin Ratio 1.4 1-3 Total Bilirubin 0.70 mg/dL 0.2-1.0 Alkaline Phosphatase 52 U/L 34-104 Alt 21 U/L 7-52 Ast 22 U/L 13-39 Egfr Non- 61.9 >60 Egfr 79.6 >60 19 Lipid Panel - [facility] 07/22/2015 Creatine Kinase(CK) 55 U/L 10-223 Inr/Protime 06/27/2015 Inr 2.43 High 0.78-1.07 Laboratory test finding 06/16/2015 Inr/Protime 2.46 High 0.78-1.07 20 Inr/Protime 06/02/2015 Inr 2.43 High 0.78-1.07 BMP Basic Metabolic Panel 05/31/2015 Sodium 136 mmol/L 133-145 (8) Potassium 4.5 mmol/L 3.5-5.0 Chloride 102 mmol/L 101-111 Co2 Carbon Dioxide 28 mmol/L 22-32 Anion Gap 6 mmol/L 2-11 Glucose 203 mg/dL High 70-100 Blood Urea Nitrogen 23 mg/dL 6-24 Creatinine 1.20 mg/dL High 0.67-1.17 BUN/Creatinine Ratio 19.2 8-20 Calcium 9.5 mg/dL 8.6-10.3 Egfr Non- 59.7 >60 Egfr 76.8 >60 21 CBC W/Auto Diff 05/31/2015 White Blood Count 7.4 10^3/uL 4.8-10.8 Red Blood Count 5.68 10^6/uL High 4.0-5.4 Hemoglobin 14.1 g/dL 14.0-18.0 Hematocrit 43 % 42-52 Mean Corpuscular Volume 76 fL Low 80-94 Mean Corpuscular Hemoglobin 25 pg Low 27-31 Mean Corpuscular HGB Conc 33 g/dL 31-36 Red Cell Distribution Width 27 % High 10.5-15 Platelet Count 191 10^3/uL 150-450 Mean Platelet Volume 9 um3 7.4-10.4 Abs Neutrophils 3.7 10^3/uL 1.5-7.7 Abs Lymphocytes 2.2 10^3/uL 1.0-4.8 Abs Monocytes 0.8 10^3/uL 0-0.8 Abs Eosinophils 0.6 10^3/uL 0-0.6 Abs Basophils 0.1 10^3/uL 0-0.2 Abs Nucleated RBC 0.01 10^3/uL Granulocyte % 50.6 % 38-83 Lymphocyte % 29.2 % 25-47 Monocyte % 10.3 % High 1-9 Eosinophil % 8.5 % High 0-6 Basophil % 1.4 % 0-2 Nucleated Red Blood Cells % 0.1 Laboratory test finding 05/31/2015 Magnesium 1.8 mg/dL Low 1.9-2.7 Iron And Tibc Serum 05/31/2015 Iron 60 g/dL 50-212 Unsaturated Iron Binding 317 g/dL Total Iron Binding Capacity 377 g/dL 250-450 % Iron Saturation 16 % 15-55 Laboratory test finding 05/16/2015 Inr/Protime 3.36 High 0.78-1.07 Laboratory test finding 05/09/2015 Inr/Protime 2.88 High 0.78-1.07 Laboratory test finding 05/02/2015 Inr/Protime 2.25 High 0.78-1.07 Laboratory test finding 04/28/2015 Inr/Protime 1.50 High 0.78-1.07 Inr/Protime 04/25/2015 Inr 1.34 High 0.78-1.07 Inr/Protime 04/20/2015 Inr 4.68 High 0.78-1.07 Laboratory test finding 04/20/2015 Magnesium 1.5 mg/dL Low 1.9-2.7 Iron & Iron Binding Capacity 04/20/2015 Iron 71 g/dL 50-212 Unsaturated Iron Binding 317 g/dL Total Iron Binding Capacity 388 g/dL 250-450 % Iron Saturation 18 % 15-55 CBC Auto Diff 04/20/2015 White Blood Count 8.3 10^3/uL 4.8-10.8 Red Blood Count 5.52 10^6/uL High 4.0-5.4 Hemoglobin 12.4 g/dL Low 14.0-18.0 Hematocrit 38 % Low 42-52 Mean Corpuscular Volume 69 fL Low 80-94 Mean Corpuscular Hemoglobin 23 pg Low 27-31 Mean Corpuscular HGB Conc 33 g/dL 31-36 Red Cell Distribution Width 32 % High 10.5-15 Platelet Count 220 10^3/uL 150-450 Mean Platelet Volume 9 um3 7.4-10.4 Abs Neutrophils 5.3 10^3/uL 1.5-7.7 Abs Lymphocytes 1.8 10^3/uL 1.0-4.8 Abs Monocytes 0.8 10^3/uL 0-0.8 Abs Eosinophils 0.4 10^3/uL 0-0.6 Abs Basophils 0.1 10^3/uL 0-0.2 Abs Nucleated RBC 0 10^3/uL Granulocyte % 63.1 % 38-83 Lymphocyte % 21.6 % Low 25-47 Monocyte % 9.2 % High 1-9 Eosinophil % 4.7 % 0-6 Basophil % 1.4 % 0-2 Nucleated Red Blood Cells % 0 Comp Metabolic Panel 04/20/2015 Sodium 137 mmol/L 133-145 Potassium 4.3 mmol/L 3.5-5.0 Chloride 106 mmol/L 101-111 Co2 Carbon Dioxide 24 mmol/L 22-32 Anion Gap 7 mmol/L 2-11 Glucose 146 mg/dL High 70-100 Blood Urea Nitrogen 16 mg/dL 6-24 Creatinine 1.33 mg/dL High 0.67-1.17 BUN/Creatinine Ratio 12.0 8-20 Calcium 9.3 mg/dL 8.6-10.3 Total Protein 6.5 g/dL 6.4-8.9 Albumin 4.0 g/dL 3.2-5.2 Globulin 2.5 g/dL 2-4 Albumin/Globulin Ratio 1.6 1-3 Total Bilirubin 0.50 mg/dL 0.2-1.0 Alkaline Phosphatase 47 U/L 34-104 Alt 20 U/L 7-52 Ast 24 U/L 13-39 Egfr Non- 53.0 >60 Egfr 68.2 >60 22 Laboratory test finding 12/30/2014 PSA Diagnostic 1.973 ng/mL 0-4.0 23 CBC Auto Diff 06/16/2014 White Blood Count 7.3 10^3/uL 4.8-10.8 24 Red Blood Count 5.53 10^6/uL High 4.0-5.4 24 Hemoglobin 15.3 g/dL 14.0-18.0 24 Hematocrit 44 % 42-52 24 Mean Corpuscular Volume 79 fL Low 80-94 24 Mean Corpuscular Hemoglobin 28 pg 27-31 24 Mean Corpuscular HGB Conc 35 g/dL 31-36 24 Red Cell Distribution Width 15 % 10.5-15 24 Platelet Count 221 10^3/uL 150-450 24 Mean Platelet Volume 7 um3 Low 7.4-10.4 24 Abs Neutrophils 3.7 10^3/uL 1.5-7.7 24 Abs Lymphocytes 2.3 10^3/uL 1.0-4.8 24 Abs Monocytes 0.7 10^3/uL 0-0.8 24 Abs Eosinophils 0.5 10^3/uL 0-0.6 24 Abs Basophils 0.1 10^3/uL 0-0.2 24 Abs Nucleated RBC 0 10^3/uL 24 Granulocyte % 50.5 % 38-83 24 Lymphocyte % 31.3 % 25-47 24 Monocyte % 9.8 % High 1-9 24 Eosinophil % 7.4 % High 0-6 24 Basophil % 1.0 % 0-2 24 Nucleated Red Blood Cells % 0 24 Basic Metabolic Panel 06/16/2014 Sodium 138 mmol/L 133-145 24 Potassium 4.6 mmol/L 3.7-5.6 24 Chloride 103 mmol/L 101-111 24 Co2 Carbon Dioxide 29 mmol/L 22-32 24 Anion Gap 6 mmol/L 2-11 24 Glucose 118 mg/dL High 70-100 24 Blood Urea Nitrogen 15 mg/dL 6-24 24 Creatinine 0.94 mg/dL 0.67-1.17 24 BUN/Creatinine Ratio 16.0 8-20 24 Calcium 9.7 mg/dL 8.6-10.3 24 Egfr Non- 79.3 >60 24 Egfr 102.0 >60 24, 25 Laboratory test finding 06/16/2014 PSA Diagnostic 1.328 ng/mL 0-4.0 26 Comp Metabolic Panel 07/24/2013 Sodium 140 mmol/L 133-145 Potassium 4.2 mmol/L 3.5-5.0 Chloride 106 mmol/L 101-111 Co2 Carbon Dioxide 28.0 mmol/L 22-32 Anion Gap 6.0 mmol/L 2-11 Glucose 126 mg/dL High 70-100 Blood Urea Nitrogen 14 mg/dL 6-24 Creatinine 1.10 mg/dL 0.50-1.40 BUN/Creatinine Ratio 12.7 8-20 Calcium 9.6 mg/dL 8.1-9.9 Total Protein 6.4 g/dL 6.2-8.1 Albumin 3.9 g/dL 3.2-5.2 Globulin 2.5 g/dL 2-4 Albumin/Globulin Ratio 1.6 1-3 Total Bilirubin 1.0 mg/dL 0.4-1.5 Alkaline Phosphatase 43 U/L 30-110 Alt 28 U/L 14-54 Ast 27 U/L 12-42 Egfr Non- 66.2 >60 Egfr 85.1 >60 27 Lipid Profile (Trig/Chol/HDL) 07/24/2013 Triglycerides 63 mg/dL 40-200 Cholesterol 121 mg/dL Less than 200 HDL Cholesterol 37 mg/dL Low 40-60 28 Cholesterol/HDL Ratio 3.3 Average 1-4.44 LDL Cholesterol 71.4 Less Than 100 29 Laboratory test finding 07/24/2013 Creatine Kinase 94 U/L 0-200 Comp Metabolic Panel 07/24/2012 Sodium 139 mmol/L 135-145 Potassium 4.2 mmol/L 3.5-5.0 Chloride 106 mmol/L 101-111 Co2 (Carbon Dioxide) 29.0 mmol/L 22-32 Anion Gap 4.0 mmol/L 2-11 30 Glucose 118 mg/dL High 70-100 BUN 15 mg/dL 6-24 Creatinine 1.0 mg/dL 0.50-1.40 One Over Creatinine 1.00 BUN/Creatinine Ratio 15.0 8-20 Calcium 9.6 mg/dL 8.1-9.9 Total Protein 6.7 GM/DL 6.2-8.1 Albumin 3.8 GM/DL 3.2-5.2 Globulin 2.9 GM/DL 2-4 Albumin/Globulin Ratio 1.3 1-3 Bilirubin Total 1.1 mg/dL 0.4-1.5 31 Alkaline Phosphatase 64 U/L 39-117 Alt (SGPT) 24 U/L 17-63 Ast (Sgot) 23 U/L 12-42 eGFR Non- 74.1 > 60 eGFR 95.3 > 60 32 Lipid Profile (Trig/Chol/HDL) 07/24/2012 Triglyceride 79 mg/dL 40-200 Cholesterol 152 mg/dL Less Than 200 33 High Density Lipoprotein 44 mg/dL 40-60 34 Cholesterol/HDL Ratio 3.45 AVERAGE 1-4.97 Low Density Lipoprotein 92 mg/dL Less Than 100 35 Laboratory test finding 07/24/2012 CPK (Creatine Kinase) 103 U/L 0-200 Laboratory test finding 03/21/2012 PSA,Diagnostic 9.05 NG/ML High 0-4 36 CBC No Diff 10/12/2011 White Blood Count 6.9 CUMM 4.8-10.8 Red Cell Count 5.61 CUMM 4.6-6.2 Hemoglobin 15.6 g/dL 14.0-18.0 Hematocrit 45 % 42-52 Mean Corpuscular Volume 79 um3 Low 80-94 Mean Corpuscular Hemoglob 28 pg 27-31 Mean Corpuscular HGB Cone 35 g/dL 32-36 Redcell Distribution WDTH 14 % 10.5-15 Platelet Count 195 CUMM 150-450 Mean Platelet Volume 8.2 um3 7.4-10.4 Comp Metabolic Panel 10/12/2011 Sodium 138 mmol/L 135-145 Potassium 4.3 mmol/L 3.5-5.0 Chloride 98 mmol/L Low 101-111 Co2 (Carbon Dioxide) 32.0 mmol/L 22-32 Anion Gap 8.0 mmol/L 2-11 37 Glucose 109 mg/dL High 70-100 BUN 21 mg/dL 6-24 Creatinine 1.1 mg/dL 0.50-1.40 One Over Creatinine 0.90 BUN/Creatinine Ratio 19.1 8-20 Calcium 10.1 mg/dL High 8.1-9.9 Total Protein 7.4 GM/DL 6.2-8.1 Albumin 4.2 GM/DL 3.2-5.2 Globulin 3.2 GM/DL 2-4 Albumin/Globulin Ratio 1.3 1-3 Bilirubin Total 1.1 mg/dL 0.4-1.5 38 Alkaline Phosphatase 67 U/L 39-117 Alt (SGPT) 25 U/L 17-63 Ast (Sgot) 21 U/L 12-42 eGFR Non- 66.6 > 60 eGFR 85.6 > 60 39 Lipid Profile (Trig/Chol/HDL) 10/12/2011 Triglyceride 91 mg/dL 40-200 Cholesterol 228 mg/dL High Less Than 200 40 High Density Lipoprotein 46 mg/dL 40-60 41 Cholesterol/HDL Ratio 4.96 AVERAGE 1-4.97 Low Density Lipoprotein 164 mg/dL High Less Than 100 42 Laboratory test finding 10/12/2011 CPK (Creatine Kinase) 176 U/L 0-200 TSH 1.79 MIU/ML 0.34-5.60 1 >100 to <200 pg/mL: likely compensated congestive heart failure (CHF) 200 to 400 pg/mL: likely moderate CHF >400 pg/mL: likely moderate to severe CHF 2 Because ethnic data is not always readily available, this report includes an eGFR for both -Americans and non- Americans. The National Kidney Disease Education Program (NKDEP) does not endorse the use of the MDRD equation for patients that are not between the ages of 18 and 70, are , have extremes of body size, muscle mass, or nutritional status, or are non- or non-. According to the National Kid[employer] Foundation, irrespective of diagnosis, the stage of the disease is based on the level of kidney function: Stage Description GFR(mL/min/1.73 m(2)) 1 Kidney damage with normal or decreased GFR 90 2 Kidney damage with mild decrease in GFR 60-89 3 Moderate decrease in GFR 30-59 4 Severe decrease in GFR 15-29 5 Kidney failure <15 (or dialysis) 3 FASTING 4 Because ethnic data is not always readily available, this report includes an eGFR for both -Americans and non- Americans. The National Kidney Disease Education Program (NKDEP) does not endorse the use of the MDRD equation for patients that are not between the ages of 18 and 70, are , have extremes of body size, muscle mass, or nutritional status, or are non- or non-. According to the National Kidney Foundation, irrespective of diagnosis, the stage of the disease is based on the level of kidney function: Stage Description GFR(mL/min/1.73 m(2)) 1 Kidney damage with normal or decreased GFR 90 2 Kidney damage with mild decrease in GFR 60-89 3 Moderate decrease in GFR 30-59 4 Severe decrease in GFR 15-29 5 Kidney failure <15 (or dialysis) 5 FASTING 6 >100 to <200 pg/mL: likely compensated congestive heart failure (CHF) 200 to 400 pg/mL: likely moderate CHF >400 pg/mL: likely moderate to severe CHF 7 Because ethnic data is not always readily available, this report includes an eGFR for both -Americans and non- Americans. The National Kidney Disease Education Program (NKDEP) does not endorse the use of the MDRD equation for patients that are not between the ages of 18 and 70, are , have extremes of body size, muscle mass, or nutritional status, or are non- or non-. According to the National Kid[employer] Foundation, irrespective of diagnosis, the stage of the disease is based on the level of kidney function: Stage Description GFR(mL/min/1.73 m(2)) 1 Kidney damage with normal or decreased GFR 90 2 Kidney damage with mild decrease in GFR 60-89 3 Moderate decrease in GFR 30-59 4 Severe decrease in GFR 15-29 5 Kidney failure <15 (or dialysis) 8 Desirable <150 Borderline high 150-199 High 200-499 Very High >500 9 Desirable <200 Borderline high 200-239 High >239 10 Low <40 Desirable: 40-60 High: >60 11 Desirable: <100 mg/dL Near Optimal: 100-129 mg/dL Borderline High: 130-159 mg/dL High: 160-189 mg/dL Very High: >189 mg/dL 12 >100 to <200 pg/mL: likely compensated congestive heart failure (CHF) 200 to 400 pg/mL: likely moderate CHF >400 pg/mL: likely moderate to severe CHF 13 Because ethnic data is not always readily available, this report includes an eGFR for both -Americans and non- Americans. The National Kidney Disease Education Program (NKDEP) does not endorse the use of the MDRD equation for patients that are not between the ages of 18 and 70, are , have extremes of body size, muscle mass, or nutritional status, or are non- or non-. According to the National Kid[employer] Foundation, irrespective of diagnosis, the stage of the disease is based on the level of kidney function: Stage Description GFR(mL/min/1.73 m(2)) 1 Kidney damage with normal or decreased GFR 90 2 Kidney damage with mild decrease in GFR 60-89 3 Moderate decrease in GFR 30-59 4 Severe decrease in GFR 15-29 5 Kidney failure <15 (or dialysis) 14 >100 to <200 pg/mL: likely compensated congestive heart failure (CHF) 200 to 400 pg/mL: likely moderate CHF >400 pg/mL: likely moderate to severe CHF 15 Desirable <150 Borderline high 150-199 High 200-499 Very High >500 16 Desirable <200 Borderline high 200-239 High >239 17 Low <40 Desirable: 40-60 High: >60 18 Desirable: <100 mg/dL Near Optimal: 100-129 mg/dL Borderline High: 130-159 mg/dL High: 160-189 mg/dL Very High: >189 mg/dL 19 Because ethnic data is not always readily available, this report includes an eGFR for both -Americans and non- Americans. The National Kidney Disease Education Program (NKDEP) does not endorse the use of the MDRD equation for patients that are not between the ages of 18 and 70, are , have extremes of body size, muscle mass, or nutritional status, or are non- or non-. According to the National Kid[employer] Foundation, irrespective of diagnosis, the stage of the disease is based on the level of kidney function: Stage Description GFR(mL/min/1.73 m(2)) 1 Kidney damage with normal or decreased GFR 90 2 Kidney damage with mild decrease in GFR 60-89 3 Moderate decrease in GFR 30-59 4 Severe decrease in GFR 15-29 5 Kidney failure <15 (or dialysis) 20 ORDERED 05/31/15 EXPIRES 12/01/15 21 Because ethnic data is not always readily available, this report includes an eGFR for both -Americans and non- Americans. The National Kidney Disease Education Program (NKDEP) does not endorse the use of the MDRD equation for patients that are not between the ages of 18 and 70, are , have extremes of body size, muscle mass, or nutritional status, or are non- or non-. According to the National Kid[employer] Foundation, irrespective of diagnosis, the stage of the disease is based on the level of kidney function: Stage Description GFR(mL/min/1.73 m(2)) 1 Kidney damage with normal or decreased GFR 90 2 Kidney damage with mild decrease in GFR 60-89 3 Moderate decrease in GFR 30-59 4 Severe decrease in GFR 15-29 5 Kidney failure <15 (or dialysis) 22 Because ethnic data is not always readily available, this report includes an eGFR for both -Americans and non- Americans. The National Kidney Disease Education Program (NKDEP) does not endorse the use of the MDRD equation for patients that are not between the ages of 18 and 70, are , have extremes of body size, muscle mass, or nutritional status, or are non- or non-. According to the National Kid[employer] Foundation, irrespective of diagnosis, the stage of the disease is based on the level of kidney function: Stage Description GFR(mL/min/1.73 m(2)) 1 Kidney damage with normal or decreased GFR 90 2 Kidney damage with mild decrease in GFR 60-89 3 Moderate decrease in GFR 30-59 4 Severe decrease in GFR 15-29 5 Kidney failure <15 (or dialysis) 23 Serum levels of PSA measured using the [employer]ram [employer]apan[employer] DXI [employer]brite[employer] immunoassay should not be interpreted as absolute evidence of the presence or absence of disease. The PSA value should be used in conjunction with other pertinent clinical diagnostic procedures. The values obtained with different assay methods or kits cannot be used interchangeably. [address] Medina's lab 25 Because ethnic data is not always readily available, this report includes an eGFR for both -Americans and non- Americans. The National Kidney Disease Education Program (NKDEP) does not endorse the use of the MDRD equation for patients that are not between the ages of 18 and 70, are , have extremes of body size, muscle mass, or nutritional status, or are non- or non-. According to the National Kidney Foundation, irrespective of diagnosis, the stage of the disease is based on the level of kidney function: Stage Description GFR(mL/min/1.73 m(2)) 1 Kidney damage with normal or decreased GFR 90 2 Kidney damage with mild decrease in GFR 60-89 3 Moderate decrease in GFR 30-59 4 Severe decrease in GFR 15-29 5 Kidney failure <15 (or dialysis) 26 Serum levels of PSA measured using the Caterna DXI Hybritech immunoassay should not be interpreted as absolute evidence of the presence or absence of disease. The PSA value should be used in conjunction with other pertinent clinical diagnostic procedures. The values obtained with different assay methods or kits cannot be used interchangeably. 27 Because ethnic data is not always readily available, this report includes an eGFR for both -Americans and non- Americans. The National Kidney Disease Education Program (NKDEP) does not endorse the use of the MDRD equation for patients that are not between the ages of 18 and 70, are , have extremes of body size, muscle mass, or nutritional status, or are non- or non-. According to the National Kidney Foundation, irrespective of diagnosis, the stage of the disease is based on the level of kidney function: Stage Description GFR(mL/min/1.73 m(2)) 1 Kidney damage with normal or decreased GFR 90 2 Kidney damage with mild decrease in GFR 60-89 3 Moderate decrease in GFR 30-59 4 Severe decrease in GFR 15-29 5 Kidney failure <15 (or dialysis) 28 HDL Interpretation: Undesirable: High Risk: Less than 40 mg/dL Desirable: Low Risk: Greater than 60 mg/dL 29 LDL Interpretation: Low Risk Optimal Level: LDL Less than 100 mg/dL Near or Above Optimal: LDL 100-129 mg/dL Borderline High Risk: LDL 130-159 mg/dL High Risk: LDL 160-189 mg/dL Very High Risk: LDL Greater than 189 mg/dL 30 Anion gap measurement may be of limited value in the presence of any alkalosis, especially in a combined acid base disorder. . 31 A metabolite of Naproxen, O-desmethylnaproxen, has been shown to interfere with the Jendrassik-Lisset method for measuring total bilirubin. Samples from patients who have taken Naproxen have shown spurious elevation in total bilirubin levels. 32 Because ethnic data is not always readily available, this report includes an eGFR for both -Americans and non- Americans. The National Kidney Disease Education Program (NKDEP) does not endorse the use of the MDRD equation for patients that are not between the ages of 18 and 70, are , have extremes of body size, muscle mass, or nutritional status, or are non- or non-. According to the National Kidney Foundation, irrespective of diagnosis, the stage of the disease is based on the level of kidney function: Stage Description GFR(mL/min/1.73 m(2)) 1 Kidney damage with normal or decreased GFR 90 2 Kidney damage with mild decrease in GFR 60-89 3 Moderate decrease in GFR 30-59 4 Severe decrease in GFR 15-29 5 Kidney failure <15 (or dialysis) 33 CHOLESTEROL INTERPRETATION: Desirable: Less than 200 MG/DL Borderline-High Risk: 200-239 MG/DL High-Risk: 240 MG/DL and over 34 HDL INTERPRETATION: Undesirable: High Risk: Less than 40 MG/DL Desirable: Low Risk: Greater than 60 MG/DL 35 LDL INTERPRETATION: Low Risk Optimal Level: LDL Less than 100 MG/DL Near or Above Optimal: LDL 100-129 MG/DL Borderline High Risk: LDL 130-159 MG/DL High Risk: LDL 160-189 MG/DL Very High Risk: LDL Greater than 189 MG/DL 36 * SERUM LEVELS OF PSA MEASURED USING THE IRAM KEENA ACCESS HYBRITECH IMMUNOASSAY SHOULD NOT BE INTERPRETED ABSOLUTE EVIDENCE OF THE PRESENCE OR ABSENCE OF DISEASE. THE PSA VALUE SHOULD BE USED IN CONJUNCTION WITH OTHER PERTINENT CLINICAL DIAGNOSTIC PROCEDURES. The values obtained with different assay methods or kits cannot be used interchangeably. 37 Anion gap measurement may be of limited value in the presence of any alkalosis, especially in a combined acid base disorder. . 38 A metabolite of Naproxen, O-desmethylnaproxen, has been shown to interfere with the Jendrassik-Lisset method for measuring total bilirubin. Samples from patients who have taken Naproxen have shown spurious elevation in total bilirubin levels. 39 Because ethnic data is not always readily available, this report includes an eGFR for both -Americans and non- Americans. The National Kidney Disease Education Program (NKDEP) does not endorse the use of the MDRD equation for patients that are not between the ages of 18 and 70, are , have extremes of body size, muscle mass, or nutritional status, or are non- or non-. According to the National Kidney Foundation, irrespective of diagnosis, the stage of the disease is based on the level of kidney function: Stage Description GFR(mL/min/1.73 m(2)) 1 Kidney damage with normal or decreased GFR 90 2 Kidney damage with mild decrease in GFR 60-89 3 Moderate decrease in GFR 30-59 4 Severe decrease in GFR 15-29 5 Kidney failure <15 (or dialysis) 40 CHOLESTEROL INTERPRETATION: Desirable: Less than 200 MG/DL Borderline-High Risk: 200-239 MG/DL High-Risk: 240 MG/DL and over 41 HDL INTERPRETATION: Undesirable: High Risk: Less than 40 MG/DL Desirable: Low Risk: Greater than 60 MG/DL 42 LDL INTERPRETATION: Low Risk Optimal Level: LDL Less than 100 MG/DL Near or Above Optimal: LDL 100-129 MG/DL Borderline High Risk: LDL 130-159 MG/DL High Risk: LDL 160-189 MG/DL Very High Risk: LDL Greater than 189 MG/DL Procedures Date CPT Code Description Status 06/11/2018 77130 EKG Tracing & Interpretation Completed 01/13/2018 16741 Pace Maker Eval W/Iterative Adjment Dual Lead Completed 01/13/2018 77368 Pace Maker Eval W/Iterative Adjment Dual Lead Completed 10/01/2017 74517 EKG Tracing & Interpretation Completed 07/30/2017 70258 Pace Maker Eval W/Iterative Adjment Dual Lead Completed 06/20/2017 30903 EKG Tracing & Interpretation Completed 03/20/2017 95302 EKG Tracing & Interpretation Completed 03/04/2017 82676 Pace Maker Eval W/Iterative Adjment Dual Lead Completed 02/01/2017 74322 EKG, Interpretation Only Completed 12/24/2016 38879 Pace Maker Eval W/Iterative Adjment Dual Lead Completed 12/12/2016 17893 ECHO Transthoracic, Real-Time 2D With Doppler And Color Completed Flow 12/10/2016 93908 EKG Tracing & Interpretation Completed 11/29/2016 15228 EKG, Interpretation Only Completed 11/28/2016 52002 EKG, Interpretation Only Completed 11/23/2016 24611 Treadmill Interp/Report Only Completed 11/23/2016 40691 Stress Test Supervsn W/Out I/R Completed 08/06/2016 15399 Pace Maker Eval W/Iterative Adjment Dual Lead Completed 04/25/2016 03816 EKG Tracing & Interpretation Completed 01/17/2016 07161 Interrogation Device Eval In Person W/DR Completed Analysis,Single,Dual,Mul 10/31/2015 35709 Treadmill Interp/Report Only Completed 10/31/2015 04673 Stress Test Supervsn W/Out I/R Completed 10/31/2015 83881 Stress Test Completed 10/31/2015 05886 Myocardial Perfusion Imaging Tomographic (Spect) Completed Multiple Studies 10/31/2015 32542 Myocardial Perfusion Imaging Tomographic (Spect) Completed Multiple Studies 09/12/2015 42930 Diffusing Capacity Completed 09/12/2015 71976 Spirometry Incl Graphic Record Completed 09/07/2015 74504 EKG Tracing & Interpretation Completed 08/08/2015 38932 Interrogation Device Eval In Person W/DR Completed Analysis,Single,Dual,Mul 08/03/2015 24939 ECHO Transthoracic, Real-Time 2D With Doppler And Color Completed Flow 07/29/2015 93702 EKG Tracing & Interpretation Completed 07/29/2015 43276 EKG Tracing & Interpretation Completed 07/21/2015 50128 EKG Tracing & Interpretation Completed 05/20/2015 01229 EKG Tracing & Interpretation Completed 05/17/2015 30363 Interrogation Device Eval In Person W/DR Completed Analysis,Single,Dual,Mul 04/20/2015 21158 EKG Tracing & Interpretation Completed 03/28/2015 67430 Cardioversion Completed 03/28/2015 07773 EKG, Interpretation Only Completed 03/28/2015 33882 Echocardiography, Transesophageal, Real Time W/Image 2D Completed W/W/O M-M 03/28/2015 77661 Pulse Wave/Continuous-Interp.RPT Completed 03/28/2015 75336 Color Flow Doppler/Interp & Reprt Completed 01/17/2015 99618 Interrogation Device Eval In Person W/DR Completed Analysis,Single,Dual,Mul 01/08/2015 12235 Polysomnography Sleep Staging 4+ Parameters W/Cpap Completed 12/16/2014 20730 EKG Tracing & Interpretation Completed 12/15/2014 14296 Interrogation Device Eval In Person W/DR Completed Analysis,Single,Dual,Mul 11/29/2014 23339 ECHO Transthoracic, Real-Time 2D With Doppler And Color Completed Flow 11/16/2014 01624 Interrogation Device Eval In Person W/DR Completed Analysis,Single,Dual,Mul 11/16/2014 86156 EKG, Interpretation Only Completed 11/15/2014 54376 EKG, Interpretation Only Completed 11/15/2014 01229 [address]emaker Av Sequential Atrial And Ventricular Completed 10/26/2014 37880 EKG Tracing & Interpretation Completed 10/14/2014 88905 Polysomnography Sleep Staging 4+ Parameters Completed 08/31/2014 66455 EKG Tracing & Interpretation Completed 06/24/2014 81278 Myocardial Perfusion Imaging Tomographic (Spect) Completed Multiple Studies 06/24/2014 12247 Stress Test Completed 06/15/2014 27602 EKG Tracing & Interpretation Completed 04/12/2014 29771 EKG Tracing & Interpretation Completed 10/12/2013 74584 EKG Tracing & Interpretation Completed 08/18/2013 88852 Treadmill Interp/Report Only Completed 08/18/2013 86773 Stress Test Supervsn W/Out I/R Completed 07/22/2013 54268 ECHO Stress Test Incl Perf Contiuous ekg Monitoring Completed W/Phys Superv 07/22/2013 21390 ECHO Stress Test Incl Perf Contiuous ekg Monitoring Completed W/Phys Superv 07/03/2013 16778 EKG Tracing & Interpretation Completed 03/11/2013 37223 EKG Tracing & Interpretation Completed 12/17/2012 04732 EKG Tracing & Interpretation Completed 12/11/2012 24614 EKG Tracing & Interpretation Completed 12/08/2012 63853 EKG Tracing & Interpretation Completed 11/19/2012 84104 EKG Tracing & Interpretation Completed 11/17/2012 47158 Color Flow Doppler/Interp & Reprt Completed 11/17/2012 89577 Pulse Wave/Continuous-Interp.RPT Completed 11/17/2012 41760 Echocardiography, Transesophageal, Real Time W/Image 2D Completed /W/O M-M 11/17/2012 13143 EKG, Interpretation Only Completed 11/17/2012 43263 Cardioversion Completed 11/15/2012 06583 EKG, Interpretation Only Completed 11/14/2012 79438 IV Rx Trancath Therapy(Nitro/Zack) Completed 11/14/2012 76047 Revascularization Acute Total/Subtotal Occlusion Completed 11/14/2012 00749 EKG, Interpretation Only Completed 11/14/2012 88200 EKG, Interpretation Only Completed 11/14/2012 10506 Left Health Catheterization W/Inj For Left Completed Ventriculography,S&I 11/14/2012 67717 Cath PLMT&NJX L Ventriculog Img S&I Completed 11/14/2012 78579 Left Heart Cath. Incl S/I Coronaries, Angio S/I V Gram Completed If Done 11/13/2012 32167 EKG, Interpretation Only Completed 11/12/2012 12674 Treadmill Interp/Report Only Completed 11/12/2012 39597 Stress Test Supervsn W/Out I/R Completed 11/12/2012 95032 EKG, Interpretation Only Completed 05/21/2012 46902 EKG Tracing & Interpretation Completed 02/18/2012 92964 ECHO Stress Test Incl Perf Contiuous ekg Monitoring Completed W/Phys Superv 02/05/2012 20927 EKG Tracing & Interpretation Completed 12/17/2011 52151 EKG Tracing & Interpretation Completed 11/30/2011 98229 ECHO Stress Test Incl Perf Contiuous ekg Monitoring Completed W/Phys Superv 10/29/2011 12501 Holter Monitoring 24 HR New Completed 10/24/2011 88839 EKG Tracing & Interpretation Completed 10/24/2011 73122 EKG Tracing & Interpretation Completed 10/10/2011 99388 EKG Tracing & Interpretation Completed 09/12/2011 00091 EKG, Interpretation Only Completed 09/11/2011 34395 EKG, Interpretation Only Completed 09/10/2011 60564 Left Heart Cath. Incl S/I Coronaries, Angio S/I V Gram Completed If Done 09/10/2011 03273 Cath PLMT&NJX L Ventriculog Img S&I Completed 09/10/2011 00284 Left Health Catheterization W/Inj For Left Completed Ventriculography,S&I 09/10/2011 02275 EKG, Interpretation Only Completed 09/08/2011 41819 Treadmill Interp/Report Only Completed 09/08/2011 52223 Stress Test Supervsn W/Out I/R Completed 09/08/2011 31446 EKG, Interpretation Only Completed 01/31/2010 04860 Treadmill Interp/Report Only Completed 01/31/2010 38694 Stress Test Supervsn W/Out I/R Completed 01/31/2010 24715 EKG, Interpretation Only Completed Encounters Type Date Location Provider CPT E/M Dx Office Visit 02/21/2018 [facility] [place] [address] J44.9 10:30a [facility] R09.02 G47.33 Office Visit 10/01/2017 8:20a [facility] Yayo Stone M.D. 19694 Z95.0 J44.9 I48.0 R60.9 I25.10 R07.9 E78.00 I10 Office Visit 08/23/2017 10:45a [facility] [place] [address] J44.9 [facility] G47.33 R09.02 Office Visit 06/20/2017 1:00p [facility] GALINA Jeronimo 10404 Z95.0 R60.9 R06.02 I48.0 D64.9 E78.5 Office Visit 03/20/2017 12:30p [facility] Yayo Stone M.D. G9746 I48.0 J44.9 G47.33 E11.9 I25.10 Office Visit 02/20/2017 10:45a [facility] [place] [address] J44.9 [facility] G47.33 Office Visit 02/01/2017 3:51p [facility],pc Nicol Zhu, 14428 K92.2 Hospitalists Azalea N17.9 D62 Office Visit 01/31/2017 3:51p [facility], [address] K92.2 Assoc,pc Hospitalists Azalea N17.9 D62 E11.9 Office Visit 01/05/2017 8:46a [facility],pc [place] Call, 66913 J44.1 Hospitalists Azalea I48.0 E11.9 G47.33 Office Visit 12/26/2016 11:30a [facility] [place] [address] I48.0 Office Visit 12/24/2016 2:00p [facility] Vicente Solares, 92899 I48.0 DO FAC I25.10 I10 E78.5 J44.9 F17.201 G47.33 E11.9 Office Visit 12/15/2016 2:08p [facility], Bandar Call, 62209 I48.91 Hospitalists Azalea I25.118 I10 E78.5 Office Visit 12/15/2016 11:33a [facility] Of Estephania Priest M.D. 76312 I48.0 [facility] I25.10 Office Visit 12/14/2016 11:30a [facility] [place] [address] I48.0 [facility] FAC I25.10 Z92.0 Office Visit 12/14/2016 2:07p [facility], 16271 I48.91 Assoc, Hospitalists N.PSherie I25.118 I10 E78.5 Office Visit 12/10/2016 3:00p [facility] [place] [address] I48.0 [facility] J44.9 I25.10 F17.201 Z95.0 I10 G47.33 E78.5 Office Visit 11/30/2016 2:56p [facility], 70128 J44.1 Hospitalists Azalea R07.82 I48.91 Office Visit 11/30/2016 10:57a [facility] [place] [address] I48.0 [facility] FACC Office Visit 11/29/2016 3:16p [facility] [place] [address] I25.10 [facility] FACC I48.0 Office Visit 11/29/2016 2:56p [facility], Ramón [place], [address]328 R07.82 Hospitalists Azalea J44.1 I48.91 Office Visit 11/28/2016 2:55p [facility], Ramón Anderson, 36986 R07.82 Hospitalists Azalea J44.1 I48.91 Office Visit 11/28/2016 8:48a [facility] Estephania Priest M.D. 99678 I48.91 [facility] R79.89 R07.9 Office Visit 11/23/2016 3:24p [facility], Yumiko Ramonhn, 50012 R07.9 Hospitalists Azalea J44.1 I10 Office Visit 11/22/2016 3:23p [facility], Ramón [place], 60589 R07.9 Hospitalists Azalea J44.1 E11.9 I10 Office Visit 07/24/2016 2:45p [facility] [place] [address] J44.1 [facility] G47.33 R09.02 Office Visit 04/26/2016 10:00a [facility] [place] [address] J44.9 [facility] G47.33 R09.02 Office Visit 04/25/2016 10:00a [facility] Of Yayo Stone, 94545 I48.0 Yue Tristan Z95.0 I10 I25.10 J44.9 Office Visit 12/23/2015 2:30p [facility] GALINA Jeronimo 42229 I10 I48.0 I25.10 J44.9 Z95.0 Office Visit 12/08/2015 9:30a [facility] GALINA Jeronimo 85496 I10 I48.0 I25.10 J44.9 Z95.0 Office Visit 11/22/2015 11:00a [facility] Yayo Stone, 78760 R06.02 Azalea J44.9 I25.10 I10 I48.0 I49.5 Office Visit 11/01/2015 9:30a [facility] GALINA Jeronimo 44621 J44.9 R06.02 I25.10 I10 Z95.0 I48.0 Office Visit 10/27/2015 1:30p [facility] [place] [address] J44.9 [facility] G47.33 Office Visit 09/15/2015 2:45p [facility] [place] [address] J44.9 [facility] Office Visit 09/07/2015 10:20a [facility] Yayo Stone, 19901 I48.0 M.DSherie I49.5 R06.00 J44.9 I25.10 Office Visit 07/29/2015 9:45a [facility] Of [facility] GALINA Jeronimo 71985 427.31 401.1 327.23 414.01 786.09 Office Visit 07/21/2015 11:00a [facility] Yayo Stone, 58936 427.31 M.D. 401.1 327.23 427.81 280.9 414.01 786.09 786.2 Office Visit 05/20/2015 11:15a [facility] Of [facility] GALINA Jeronimo 10655 V45.01 427.31 414.9 401.1 327.23 285.9 Office Visit 04/28/2015 3:15p [facility] Oswaldo Samson, 70829 327.23 [facility] M.D. Office Visit 04/20/2015 2:20p [facility] Of Yayo Stone, 94813 427.31 [facility] MSherieDSherie 280.9 414.00 Office Visit 03/31/2015 1:52p [facility], Nicol Zhu, 45197 786.50 Hospitalists MNate 427.31 280.9 Office Visit 03/30/2015 12:54p [facility] Of Sudeep Haddad, 65226 427.31 Title Assistant Azalea, FAC, FASNE Office Visit 03/30/2015 1:51p [facility], Nicol Zhu, 38111 786.50 Hospitalists M.DSherie 427.31 280.9 Office Visit 03/29/2015 1:51p [facility], Nicol Zhu, 45040 786.50 Hospitalists MNate 427.31 280.9 Office Visit 03/28/2015 1:50p [facility], Nicol Zhu, 40500 786.50 Hospitalists M.D. 427.31 280.9 Office Visit 03/28/2015 2:57p [facility] 91106 427.31 [facility] M.Jada 786.50 414.9 Office Visit 03/27/2015 1:50p [facility], Nicol Zhu, 75935 786.50 Hospitalists M.D. 427.31 280.9 Office Visit 03/24/2015 9:12p [facility], Bandar Call, 77076 578.9 Hospitalists M.D. 285.1 491.21 Office Visit 03/23/2015 9:12p [facility], Yumiko Nur, 21222 578.9 Hospitalists M.D. 285.1 491.21 414.00 Office Visit 03/22/2015 9:11p [facility], Neri Ramos M.D. 98510 578.9 Hospitalists 285.1 491.21 414.00 Office Visit 02/10/2015 10:00a [facility] Oswaldo Samson, 70024 327.23 [facility] M.Jada Office Visit 12/16/2014 1:20p [facility] Yayo Stone, 89631 427.31 M.DSherie 414.01 424.0 427.81 782.3 Office Visit 12/15/2014 11:45a [facility] [place] [address] 427.31 Office Visit 10/27/2014 8:30a [facility] Drew Mchugh, 43697 427.31 Yue Tristan 427.81 414.01 Office Visit 10/26/2014 9:40a [facility] Yayo Stone, 22874 427.31 M.DSherie 414.01 427.89 427.81 Office Visit 09/23/2014 1:00p [facility] GALINA Jeronimo 98917 427.31 401.0 414.01 427.89 786.05 Office Visit 09/09/2014 11:00a [facility] Oswaldo Samson, 68762 780.53 [facility] M.DSherie Office Visit 08/31/2014 11:00a [facility] GALINA Jeronimo 93253 401.1 427.31 401.0 414.9 427.89 Office Visit 06/28/2014 1:20p [facility] Yayo Stone M.D. 73311 401.1 414.01 427.31 272.0 611.9 414.9 307.49 Office Visit 06/15/2014 10:30a [facility] GALINA Jeronimo 07670 401.1 414.01 414.9 427.31 Office Visit 04/12/2014 3:00p [facility] Yayo Stone 20610 414.01 M.D. 401.1 272.0 427.31 611.9 Office Visit 10/12/2013 2:00p [facility] Yayo Stone 12151 414.01 M.D. 401.1 272.0 Office Visit 08/18/2013 11:30a [facility] Yayo Stone 57688 414.9 M.D. Office Visit 07/03/2013 12:00p [facility] Yayo Stone 27824 427.31 M.D. 401.1 414.01 272.0 Office Visit 03/11/2013 9:00a [facility] Yayo Stone M.D. 70610 401.1 427.31 414.01 272.0 Office Visit 12/31/2012 11:00a [facility] Yayo Stone 25857 401.1 M.D. Office Visit 12/19/2012 3:00p [facility] Nurse Visit 03745 401.0 Office Visit 12/17/2012 2:00p [facility] Yayo Stone 51775 427.31 M.D. 414.01 401.0 272.0 786.51 Office Visit 12/11/2012 12:20p [facility] Yayo Stone 32557 427.31 M.D. 414.01 401.0 Office Visit 12/08/2012 3:00p [facility] Yayo Stone 58294 427.31 M.D. 272.0 414.01 401.0 Office Visit 11/19/2012 3:20p [facility] Yayo tSone, 31993 427.31 M.D. 414.01 272.0 Office Visit 11/17/2012 3:50p [facility], 15205 786.51 Assoc, Hospitalists N.P. 414.01 487.1 427.31 Office Visit 11/17/2012 12:15p [facility] Yayo Stone, 68733 427.31 M.D. 414.01 Office Visit 11/16/2012 3:47p [facility], 10286 786.51 Assoc,pc Hospitalists N.P. 414.01 487.1 427.31 Office Visit 11/16/2012 12:39p [facility] Isela Garza D.O. 30525 786.50 410.70 414.01 Office Visit 11/15/2012 3:47p [facility], 99034 786.51 Assoc, Hospitalists N.P. 414.01 487.1 427.31 Office Visit 11/15/2012 12:38p [facility] Isela Garza D.O. 82964 786.50 410.70 414.01 Office Visit 11/14/2012 3:46p [facility], Jacey Oliver N.P. 34661 786.51 Hospitalists 414.01 487.1 Office Visit 11/14/2012 4:15p [facility] Yayo Stone, 72342 427.31 M.D. 414.01 427.1 Office Visit 11/14/2012 11:30a [facility] Nicolasa Michaud, 89432 414.01 M.D. 411.89 401.1 v45.82 Office Visit 11/13/2012 3:45p [facility], Jacey Oliver N.P. 53691 786.51 Hospitalists 414.01 487.1 Office Visit 11/13/2012 11:20a [facility] Yayo Stone, 55576 411.89 M.D. 401.1 272.0 Office Visit 11/12/2012 10:06a [facility] Yayo Stone, 15875 786.50 M.D. 794.31 414.01 Office Visit 11/11/2012 3:38p [facility], Camila OneillSherie Martinez, 79632 786.51 Hospitalists N.P. 414.01 487.1 Office Visit 07/09/2012 9:30a [facility], N.P. 73051 401.1 Office Visit 05/21/2012 1:40p [facility] Yayo Stone, 08762 786.50 M.D. 414.01 401.1 272.0 Office Visit 02/18/2012 9:30a [facility] Yayo Stone, 57299 786.50 M.D. 414.01 401.1 Office Visit 02/05/2012 2:30p [facility] AT [facility], 92864 414.01 [facility] N.P. 401.1 Office Visit 01/10/2012 11:00a [facility] AT [facility], N.P. 89220 401.9 [facility] 786.50 Office Visit 01/03/2012 10:30a [facility], N.P. 30980 401.9 786.50 Office Visit 12/17/2011 10:20a [facility] AT Yayo Stone, 64940 780.2 [facility] M.D. 401.1 414.01 272.0 Office Visit 10/24/2011 1:15p [facility] Nurse Visit 66293 780.2 414.01 401.1 Office Visit 10/10/2011 8:40a [facility] Yayo Stone 32112 414.01 M.D. 401.0 Office Visit 09/12/2011 3:16p [facility] Yayo Stone M.D. 70471 411.1 414.01 401.1 Office Visit 09/11/2011 3:10p [facility] Yayo Stone 93971 414.01 M.D. 401.0 Office Visit 09/10/2011 8:30a [facility] Nicolasa Michaud, 61513 786.50 M.D. 794.31 414.01 401.1 Office Visit 09/09/2011 8:50a [facility] Yayo Stone, 18721 794.31 M.D. 786.50 401.1 Office Visit 09/08/2011 9:10a [facility] Yayo Stone, 85173 794.31 M.D. 786.50 427.31 Office Visit 01/31/2010 2:30a [facility],pc Nicol Zhu, 90132 786.59 Hospitalists M.Jada 496 Office Visit 01/30/2010 1:00a [facility], Ramón Morgan, 59551 786.50 Hospitalists N.P. 496 Plan of Care Future Appointment(s):08/13/2018 9:30 am - Camila Martinez N.PSherie at [facility]07/25/2018 10:30 am - Yayo Stone M.D. 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
[2018-06-26 10:13] LABS: ABS Basophils 0.1 10^3/ul (0-0.2); ABS Eosinophils 0.4 10^3/ul (0-0.6); ABS Lymphocytes 1.1 10^3/ul (1.0-4.8); ABS Monocytes 1.3 10^3/ul (0-0.8); ABS Neutrophils 13.5 10^3/ul (1.5-7.7); ABS Nucleated RBC 0 10^3/ul; Eosinophil % 2.4 % (0-6); Hematocrit 41 % (42-52); Hemoglobin 14.2 g/dl (14.0-18.0); Lymphocyte % 6.6 % (25-47); Mean Corpuscular HGB Conc 35 g/dl (31-36); Mean Corpuscular Hemoglobin 28 pg (27-31); Mean Corpuscular Volume 80 fL (80-94); Nucleated Red Blood Cells % 0; Platelet Count 221 10^3/ul (150-450); Red Blood Count 5.12 10^6/ul (4.00-5.40); Red Cell Distribution Width 15 % (10.5-15); White Blood Count 16.4 10^3/ul (3.5-10.8)
[2018-06-26 10:23] LABS: INR 1.02 (0.77-1.02)
[2018-06-26 10:25] LABS: EGFR Non-African American 52.1 (>60)
--- NOTE | 2018-06-26 10:35 | RAD ---
Indication: Several days productive cough. Comparison: February 22, 2008 Technique: Upright AP 1005 hours Report: Unchanged mild prominence of the interstitial markings. Mild bilateral apical pleural-parenchymal scarring. No additional pulmonary opacity. Elevated lung volumes based on correlation with the prior exam. Negative for pleural effusion or pneumothorax. Upper normal heart size accounting for portable AP technique. RIGHT atrial and RIGHT ventricular level pacemaker leads as on the prior exam. Unremarkable central pulmonary vasculature and mediastinal contours. IMPRESSION: #. Stigmata of chronic obstructive pulmonary disease. No acute cardiopulmonary process evident.
[2018-06-26] MEDS ORDERED: Azithromycin IV(*) 500 MG in NS 0.9% 250 ML* 250 ML IVPB ONE (11:21)
[2018-06-26] MEDS ORDERED: cefTRIAXone(*) 1 GM in NS 0.9% 50 ML* 50 ML IVPB ONE (11:21)
[2018-06-26] MEDS ORDERED: Albuterol/Ipratropium NEB.SOL* Albuterol 2.5 MG/Ipratropium 0.5 MG 3 ML INH ONE (11:22)
[2018-06-26] MEDS ORDERED: methylPREDNISolone 125 MG* 2 ML VIAL IV ONE (11:22)
--- NOTE | 2018-06-26 11:24 | ED ---
Complex/Multi-Sys Presentation - HPI Summary HPI Summary: [facility] for attending Billy Eduardo MD. Pt is a 72 y/o M c/o SOB and CP. Pain is described as an ache and rated a 5/10. Assoc Sx: SOB, fever (100.5), productive cough (green/yellow), nausea, vomiting , diarrhea. Denies: dysuria, urinary changes. Family in room reports pt was shaking a lot and dry heaving s/p waking this AM. I, Dr. Eduardo, personally performed the services described in this documentation as scribed in my presence and it is both accurate and complete. - History Of Current Complaint Chief Complaint: EDGeneral Time Seen by Provider: 06/26/18 09:41 Hx Obtained From: Patient Onset/Duration: Sudden Onset, Lasting Hours, Still Present Timing: Constant Severity Currently: Moderate Associated Signs And Symptoms: Positive: SOB, Cough, Chest Pain, Nausea, Vomiting, Diarrhea, Fever, Other - NEG: urinary changes. Negative: Dysuria - Allergies/Home Medications Allergies/Adverse Reactions: Allergies Allergy/AdvReac Type Severity Reaction Status Date / Time bupropion [From Wellbutrin] Allergy Dizziness Verified 06/26/18 09:36 morphine Allergy Rash And Verified 06/26/18 09:36 Itching Penicillins Allergy Swelling Verified 06/26/18 09:36 Home Medications: Home Medications Apixaban* [Eliquis*] 5 mg PO BID 06/26/18 [History Confirmed 06/26/18] Aspirin EC TAB* [Ecotrin EC Low Dose 81 MG*] 81 mg PO DAILY 06/26/18 [History Confirmed 06/26/18] PMH/Surg Hx/FS Hx/Imm Hx Endocrine/Hematology History: Reports: Hx Anticoagulant Therapy, Hx Diabetes, Hx Anemia Cardiovascular History: Reports: Hx Angina, Hx Angioplasty, Hx Atrial Fibrillation, Hx Auto Implanted Cardiovert Defib - November 2014, Hx Cardiac Arrest - 2014, Hx Coronary Artery Disease, Hx Hypercholesterolemia, Hx Hypertension, Hx Myocardial Infarction - [place], Hx Pacemaker/ICD, Other Cardiovascular Problems/Disorders - cardiac stent 2012 Denies: Hx Deep Vein Thrombosis, Hx Peripheral Vascular Disease Comment Only: Hx Congestive Heart Failure - unconfirmed Respiratory History: Reports: Hx Chronic Bronchitis, Hx Chronic Obstructive Pulmonary Disease (COPD), Other Respiratory Problems/Disorders - 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, emphysema, uses inhaler Denies: Hx Asthma GI History: Reports: Hx Diverticulosis, Hx Gastroesophageal Reflux Disease, Hx Gastrointestinal Bleed, Hx Obstructive Bowel - twisted bowel that required surgery 1996, Other GI Disorders - chronic stomach pains and bloating History: Reports: Hx Benign Prostatic Hyperplasia Musculoskeletal History: Reports: Other Musculoskeletal History - bilateral pedal edema Denies: Hx Arthritis, Hx Osteoporosis Sensory History: Reports: Hx Contacts or Glasses, Hx Vision Problem - Cant see distance. Denies: Hx Eye Injury, Hx Hearing Aid Opthamlomology History: Reports: Hx Contacts or Glasses, Hx Vision Problem - Cant see distance. Denies: Hx Eye Injury Neurological History: Denies: Hx Headaches, Hx Seizures, Hx Transient Ischemic Attacks (TIA) Psychiatric History: Reports: Hx Anxiety - Cancer History Cancer Type, Location and Year: "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 Left lung removal of mass. 1 cardiac stent in 2010 Hx Anesthesia Reactions: No Infectious Disease History: No Infectious Disease History: Denies: Traveled Outside the [place] in Last 30 Days - Family History Known Family History: Negative: Cardiac Disease - Social History Occupation: Retired Lives: With Family Alcohol Use: None Substance Use Type: Reports: None Hx Tobacco Use: Yes Smoking Status (MU): Former Smoker Type: Cigarettes Have You Smoked in the Last Year: No Review of Systems Positive: Fever. Negative: Chills, Fatigue, Skin Diaphoresis Negative: Photophobia, Blurred Vision, Diplopia, Drainage, Erythema Negative: Epistaxis, Dental Pain, Sore Throat, Ear Ache, Nasal Discharge Positive: Chest Pain. Negative: Palpitations Positive: Shortness Of Breath, Cough - productive Positive: Vomiting, Diarrhea, Nausea. Negative: Abdominal Pain Positive: dysuria. Negative: burning, discharge, frequency, flank pain, hematuria, incontinence, pain, urgency Negative: Arthralgia, Myalgia, Decreased ROM, Edema Negative: Rash, Bruising Negative: Headache, Weakness, Paresthesia, Numbness, Syncope, Slurred Speech Negative: Anxious, Depressed All Other Systems Reviewed And Are Negative: Yes Physical Exam - Summary Physical Exam Summary: Constitutional: Well-developed, Well-nourished, Alert. (-) Distressed Skin: Warm, Dry HENT: Normocephalic; Atraumatic Eyes: Conjunctiva normal Neck: Musculoskeletal ROM normal neck. (-) JVD, (-) Stridor, (-) Tracheal deviation Cardio: Rhythm regular, rate normal, Heart sounds normal; Intact distal pulses; The pedal pulses are 2+ and symmetric. Radial pulses are 2+ and symmetric. (-) Murmur Pulmonary/Chest wall: Diminished airflow, Expiratory wheeze, tachypnea. Abd: Soft, (-) epigastric tenderness, (-) Distension, (-) Guarding, (-) Rebound Musculoskeletal: (-) Edema Lymph: (-) Cervical adenopathy Neuro: Alert, Oriented x3 Psych: Mood and affect Normal Triage Information Reviewed: Yes Vital Signs On Initial Exam: Initial Vitals Temp Pulse Resp BP Pulse Ox 99.6 F 74 24 174/83 93 06/26/18 09:32 06/26/18 09:32 06/26/18 09:32 06/26/18 09:32 06/26/18 09:32 Vital Signs Reviewed: Yes Diagnostics - Vital Signs Vital Signs Temp Pulse Resp BP Pulse Ox 06/26/18 10:03 94 06/26/18 10:00 66 20 88 06/26/18 09:37 72 28 94 06/26/18 09:32 99.6 F 74 24 174/83 93 - Laboratory Lab Results: Lab Results 06/26/18 06/26/18 06/26/18 Range/Units 09:52 09:52 09:52 WBC 16.4 H (3.5-10.8) 10^3/ul RBC 5.12 (4.00-5.40) 10^6/ul Hgb 14.2 (14.0-18.0) g/dl Hct 41 L (42-52) % MCV 80 (80-94) fL MCH 28 (27-31) pg MCHC 35 (31-36) g/dl RDW 15 (10.5-15) % Plt Count 221 (150-450) 10^3/ul MPV 8.0 (7.4-10.4) um3 Neut % (Auto) 82.4 (38-83) % Lymph % (Auto) 6.6 L (25-47) % Daniels % (Auto) 7.8 H (0-7) % Eos % (Auto) 2.4 (0-6) % Baso % (Auto) 0.8 (0-2) % Absolute Neuts (auto) 13.5 H (1.5-7.7) 10^3/ul Absolute Lymphs (auto) 1.1 (1.0-4.8) 10^3/ul Absolute Monos (auto) 1.3 H (0-0.8) 10^3/ul Absolute Eos (auto) 0.4 (0-0.6) 10^3/ul Absolute Basos (auto) 0.1 (0-0.2) 10^3/ul Absolute Nucleated RBC 0 10^3/ul Nucleated RBC % 0 INR (Anticoag Therapy) 1.02 (0.77-1.02) APTT 24.1 L (26.0-36.3) seconds Sodium 139 (135-145) mmol/L Potassium 5.0 (3.5-5.0) mmol/L Chloride 102 (101-111) mmol/L Carbon Dioxide 28 (22-32) mmol/L Anion Gap 9 (2-11) mmol/L BUN 36 H (6-24) mg/dL Creatinine 1.34 H (0.67-1.17) mg/dL Est GFR ( Amer) 63.1 (>60) Est GFR (Non-Af Amer) 52.1 (>60) BUN/Creatinine Ratio 26.9 H (8-20) Glucose 299 H (70-100) mg/dL Lactic Acid (0.5-2.0) mmol/L Calcium 9.7 (8.6-10.3) mg/dL Total Bilirubin 0.80 (0.2-1.0) mg/dL AST 21 (13-39) U/L ALT 24 (7-52) U/L Alkaline Phosphatase 80 (34-104) U/L Troponin I 0.00 (<0.04) ng/mL Total Protein 7.5 (6.4-8.9) g/dL Albumin 4.1 (3.2-5.2) g/dL Globulin 3.4 (2-4) g/dL Albumin/Globulin Ratio 1.2 (1-3) 06/26/18 Range/Units 09:52 WBC (3.5-10.8) 10^3/ul RBC (4.00-5.40) 10^6/ul Hgb (14.0-18.0) g/dl Hct (42-52) % MCV (80-94) fL MCH (27-31) pg MCHC (31-36) g/dl RDW (10.5-15) % Plt Count (150-450) 10^3/ul MPV (7.4-10.4) um3 Neut % (Auto) (38-83) % Lymph % (Auto) (25-47) % Daniels % (Auto) (0-7) % Eos % (Auto) (0-6) % Baso % (Auto) (0-2) % Absolute Neuts (auto) (1.5-7.7) 10^3/ul Absolute Lymphs (auto) (1.0-4.8) 10^3/ul Absolute Monos (auto) (0-0.8) 10^3/ul Absolute Eos (auto) (0-0.6) 10^3/ul Absolute Basos (auto) (0-0.2) 10^3/ul Absolute Nucleated RBC 10^3/ul Nucleated RBC % INR (Anticoag Therapy) (0.77-1.02) APTT (26.0-36.3) seconds Sodium (135-145) mmol/L Potassium (3.5-5.0) mmol/L Chloride (101-111) mmol/L Carbon Dioxide (22-32) mmol/L Anion Gap (2-11) mmol/L BUN (6-24) mg/dL Creatinine (0.67-1.17) mg/dL Est GFR ( Amer) (>60) Est GFR (Non-Af Amer) (>60) BUN/Creatinine Ratio (8-20) Glucose (70-100) mg/dL Lactic Acid 2.4 H* (0.5-2.0) mmol/L Calcium (8.6-10.3) mg/dL Total Bilirubin (0.2-1.0) mg/dL AST (13-39) U/L ALT (7-52) U/L Alkaline Phosphatase (34-104) U/L Troponin I (<0.04) ng/mL Total Protein (6.4-8.9) g/dL Albumin (3.2-5.2) g/dL Globulin (2-4) g/dL Albumin/Globulin Ratio (1-3) Result Diagrams: 06/26/18 09:52 06/26/18 09:52 Lab Statement: Any lab studies that have been ordered have been reviewed, and results considered in the medical decision making process. - Radiology CXR Xray Interpretation: No Acute Changes - IMPRESSION: Stigmata of chronic obstructive pulmonary disease. No acute cardiopulmonary process evident. Radiology Interpretation Completed By: Radiologist - Report has been reviewed by provider and radiologist. - EKG 1334 Cardiac Rate: NL - 89 bpm EKG Interpretation: TWI V2-V5, RBBB, Paced Complex Multi-Symp Course/Dx Course Of Treatment: Pt was seen by provider regarding treatment. Pt will be admitted to [facility] for further workup. - Diagnoses Provider Diagnoses: PNA (pneumonia), Sepsis - Physician Notifications Discussed Care Of Patient With: Bandar Call Time Discussed With Above Provider: 12:00 Instructed by Provider To: Other - Discussed care of patient and accepted for admission. Discharge - Sign-Out/Discharge Documenting (check all that apply): Patient Departure - Discharge Plan Condition: Stable Disposition: ADMITTED TO [facility] Referrals: Aakash Alonso MD [Primary Care Provider] -
[2018-06-26] MEDS: NS 0.9% 1000 ML* 2,600 ML IV ONE (11:48)
[2018-06-26] MEDS ORDERED: NS 0.9% 250 ML* 250 ML ONE (12:15)
[2018-06-26] MEDS ORDERED: Nitroglycerin TAB 0.4 MG* 0.4 MG TAB SL PRN (13:13)
[2018-06-26] MEDS ORDERED: Albuterol/Ipratropium NEB.SOL* Albuterol 2.5 MG/Ipratropium 0.5 MG 3 ML INH PRN (13:17)
[2018-06-26] MEDS ORDERED: Dextrose 50% Syringe 50 ML* 25 GM/50 ML SYRINGE IV PUSH PRN (13:18)
[2018-06-26 14:05] LABS: Urine Appearance Clear; Urine Blood Negative (Negative); Urine Color Yellow; Urine Ketones Negative (Negative); Urine Protein 1+(30 mg/dL) (Negative); Urine Red Blood Cell Trace(0-2/hpf) (Absent); Urine Specific Gravity 1.015 (1.010-1.030); Urine Urobilinogen Negative (Negative); Urine White Blood Cell 1+(6-10/hpf) (Absent)
--- NOTE | 2018-06-26 14:57 | HP ---
CC: Dr. Alonso* [facility] MEDICINE HISTORY AND PHYSICAL: DATE OF ADMISSION: 06/26/18 PRIMARY CARE PHYSICIAN: Dr. Alonso ATTENDING PHYSICIAN: Marc Call MD* (dictation provided by Jacey Oliver NP ) CHIEF COMPLAINT: Shortness of breath and cough. HISTORY OF PRESENT ILLNESS: Mr. Bautista is a 72-year-old male with a past medical history of COPD, AFib with pacemaker for tachybrady syndrome, ND x2 and diabetes, who presents today to the hospital with concern for cough and shortness of breath. The patient states that he was in his normal state of health yesterday. He had no acute complaints. He went to bed last night and he was feeling well. However, when he awoke this morning, he had sudden onset of shortness of breath with productive cough with green sputum. He had a very hard time catching his breath and at 1 point vomited due to his intense coughing. He ultimately decided to come to the emergency room for evaluation. He believes that perhaps his temperature was elevated as he felt warm though he did not take his temperature. He has no chest pain. He denies nausea, diarrhea, or abdominal pain. In the emergency room, Mr. Bautista was short of breath. He was given Methylprednisolone 125 mg as well as nebulizers and is feeling somewhat better now, his vital signs are stable. He is currently on 2 L nasal cannula. He normally wears 2 L nasal cannula at home for bed only. His temperature was 99.6. His chest x-ray does not show an infiltrate. PAST MEDICAL HISTORY: 1. COPD. 2. Obstructive sleep apnea, not able to tolerate CPAP on 2 L nasal cannula at night. 3. History of coronary artery disease with ND x2. 4. Type 2 diabetes, [id number]. 5. Pacemaker for tachybrady syndrome with history of atrial fibrillation, on Eliquis therapy. 6. Hypertension. 7. History of GI bleed, thought to be secondary to prednisone, now on b.i.d. omeprazole. 8. History of large bowel resection for volvulus. 9. Appendectomy. 10. Inguinal hernia repair. 11. BPH. MEDICATIONS: Outpatient are: 1. Aspirin 81 mg p.o. daily. 2. Apixaban 5 mg p.o. b.i.d. 3. Glipizide 5 mg p.o. b.i.d. 4. Tiotropium 1 cap inhale daily. 5. Symbicort 80/4.5, 2 puffs inhale b.i.d. 6. Nitroglycerin p.r.n. 7. Magnesium oxide 800 mg p.o. daily. 8. Ferrous sulfate 325 mg p.o. b.i.d. 9. Diltiazem CD 240 mg p.o. daily. 10. Atorvastatin 60 mg p.o. daily. 11. Omeprazole 20 mg p.o. b.i.d. 12. Metoprolol succinate 50 mg p.o. b.i.d. 13. Finasteride 5 mg p.o. daily. ALLERGIES: BUPROPION, MORPHINE, and PENICILLINS. FAMILY HISTORY: The patient reports that his mother at age 57 related to a heart attack and his dad at about 65 from heart attack. SOCIAL HISTORY: The patient is a former smoker. He quit about 2008. No reported alcohol or drug use. He lives with his who had been the healthcare proxy. REVIEW OF SYSTEMS: A 14-point review of systems were completed with Mr. Rod Bautista and all of them mentioned above were negative. PHYSICAL EXAMINATION GENERAL: Mr. Bautista is sitting in the bed. He appears mildly short of breath at rest, but he is in no acute distress. VITAL SIGNS: Temperature 99.6, pulse rate 81, respiratory rate 16, O2 saturation 99% on 2 L nasal cannula, blood pressure 161/75. HEENT: Extraocular movements are intact. NECK: Supple. No cervical lymphadenopathy. LUNGS: Clear to auscultation bilaterally with no accessory muscle use and good aeration. HEART: S1, S2. No murmur, rub, or gallop and regular. ABDOMEN: Soft, nontender with bowel sounds positive x4. EXTREMITIES: No cyanosis or edema. BACK: Slight CVA tenderness bilaterally. NEUROLOGIC: He is alert. He is oriented x3. He moves all extremities equally. There is no facial asymmetry or focal weakness. SKIN: Intact. DIAGNOSTIC STUDIES/LAB DATA: WBC 16.4, hemoglobin 14.2, hematocrit 41, platelet count 221,000, INR is 1.02 . Sodium 139, potassium 5.0, chloride 102, serum bicarbonate 28, BUN 36, creatinine 1.34, glucose is 299, lactic acid 2.4, troponin 0.00. Chest x-ray shows no acute intrathoracic process. ASSESSMENT AND PLAN: Mr. Bautista is a 72-year-old male with a past medical history of chronic obstructive pulmonary disease, obstructive sleep apnea on 2 L nasal cannula at night, type 2 diabetes [id number], coronary artery disease with myocardial infarction, atrial fibrillation on Eliquis therapy, who presents today to the hospital with concern for sudden onset of cough with increased sputum production and shortness of breath. Our plans are for observation in the hospital for the followin. Chronic obstructive pulmonary disease exacerbation: The patient has a history of chronic obstructive pulmonary disease and presents today with productive cough with shortness of breath, consistent with chronic obstructive pulmonary disease exacerbation. His chest x-ray does not show an infiltrate, however, he does have an elevated white blood cell count. Though he does not have a temperature, he felt feverish at home. Plan to treat with ceftriaxone and azithromycin for atypical pneumonia. He will also have prednisone at 60 mg p.o. starting tomorrow. The patient does have a history of gastrointestinal bleed that was thought to be secondary to steroid therapy in the setting of use of aspirin and anticoagulant for his atrial fibrillation. He has been back on his Eliquis and aspirin and is on omeprazole b.i.d. We will monitor closely for any dark or tarry stools given his history of gastrointestinal bleeding, but certainly prednisone is indicated shorter courses possible for chronic obstructive pulmonary disease exacerbation. 2. Diabetes. Plan to check blood glucoses q.a.c. with lispro sliding scale, we will hold glipizide. 3. History of coronary artery disease with myocardial infarction. The patient is asymptomatic. Plan to continue aspirin. 4. History of atrial fibrillation. Plan to continue Eliquis with close monitoring for any evidence of gastrointestinal bleed. 5. Hypertension. Plan to continue home Cardizem and metoprolol. 6. Hyperlipidemia. Continue atorvastatin. 7. History of gastrointestinal bleed. Continue omeprazole b.i.d. 8. DVT prophylaxis with Eliquis. 9. Code status is full code. This was reviewed at the patient's bedside with his present. 10. Disposition to medical floor. TIME SPEN: Approximately 60 minutes was spent on the admission of this patient , more than half the time spent with the patient at the bedside reviewing the events leading up to this hospitalization, performing my physical examination, and reviewing the plan of care. JACEY OLIVER NP [id number]/[facility] #: [id number] [facility]
[2018-06-26] MEDS ORDERED: cefTRIAXone VIAL(*) 1,000 MG in NS 0.9% 50 ML* 50 ML IVPB ONE (15:05)
[2018-06-26] MEDS ORDERED: Insulin LISPRO* 1 UNITS UNIT SUBCUT ONE ×2 (19:07→22:15)
[2018-06-26] MEDS: Insulin LISPRO* 1 UNITS UNIT SUBCUT SCH (19:50)
[2018-06-26] MEDS: Metoprolol Succinate XL TAB* 50 MG PO SCH (21:15)
[2018-06-26] MEDS: Apixaban* 5 MG TAB PO SCH (21:16)
[2018-06-26] MEDS: Ferrous Sulfate TAB* 325 MG PO SCH (21:16)
[2018-06-26] MEDS: Omeprazole CAP* 20 MG PO SCH (21:16)
[2018-06-27 06:45] LABS: ABS Basophils 0 10^3/ul (0-0.2); ABS Eosinophils 0 10^3/ul (0-0.6); ABS Lymphocytes 1.1 10^3/ul (1.0-4.8); ABS Monocytes 0.9 10^3/ul (0-0.8); ABS Neutrophils 18.6 10^3/ul (1.5-7.7); ABS Nucleated RBC 0 10^3/ul; Eosinophil % 0 % (0-6); Hematocrit 42 % (42-52); Hemoglobin 14.4 g/dl (14.0-18.0); Lymphocyte % 5.4 % (25-47); Mean Corpuscular HGB Conc 35 g/dl (31-36); Mean Corpuscular Hemoglobin 28 pg (27-31); Mean Corpuscular Volume 80 fL (80-94); Nucleated Red Blood Cells % 0.2; Platelet Count 198 10^3/ul (150-450); Red Blood Count 5.23 10^6/ul (4.00-5.40); Red Cell Distribution Width 15 % (10.5-15); White Blood Count 20.6 10^3/ul (3.5-10.8)
[2018-06-27] MEDS ORDERED: Diltiazem CD CAP* 240 MG PO SCH (08:30)
[2018-06-27] MEDS: Insulin LISPRO* 1 UNITS UNIT SUBCUT SCH ×3 (08:56→16:56)
[2018-06-27] MEDS: Metoprolol Succinate XL TAB* 50 MG PO SCH (08:57)
[2018-06-27] MEDS: Apixaban* 5 MG TAB PO SCH (08:58)
[2018-06-27] MEDS: Omeprazole CAP* 20 MG PO SCH (08:58)
[2018-06-27] MEDS: Ferrous Sulfate TAB* 325 MG PO SCH (08:59)
[2018-06-27] MEDS: glipiZIDE TAB* 5 MG PO SCH ×2 (08:59→16:56)
[2018-06-27] MEDS ORDERED: Azithromycin TAB* 250 MG PO SCH (09:00)
[2018-06-27] MEDS ORDERED: Finasteride TAB* 5 MG PO SCH (09:00)
[2018-06-27] MEDS ORDERED: predniSONE TAB* 20 MG PO SCH (09:00)
[2018-06-27] MEDS ORDERED: Magnesium Oxide TAB* 400 MG PO SCH (09:00)
[2018-06-27] MEDS ORDERED: Atorvastatin* 20 MG TAB PO SCH (09:00)
[2018-06-27] MEDS ORDERED: Aspirin EC TAB* 81 MG TAB.EC PO SCH (09:00)
[2018-06-27] MEDS ORDERED: Tiotropium CAP.INH* CAP.INH/18 MCG (USE ORDER SET !) INH SCH (09:00)
[2018-06-27 13:55] VITALS: BP 148/67
[2018-06-27] MEDS ORDERED: Dextrose 50% Syringe 50 ML* 25 GM/50 ML SYRINGE IV PUSH PRN (17:05)
[2018-06-27] MEDS ORDERED: Insulin LISPRO* 1 UNITS UNIT SUBCUT ONE (17:05)
--- NOTE | 2018-06-28 20:57 | DS ---
DISCHARGE SUMMARY: DATE OF ADMISSION: 06/26/18 DATE OF DISCHARGE: 06/27/18 PROVIDER: Rosalia Whyte NP ATTENDING PHYSICIAN: Dr. Nur * (report dictated by Rosalia Whyte NP). PRIMARY CARE PROVIDER: Dr. Alonso, [place]. DISCHARGE DIAGNOSES: 1. Chronic obstructive pulmonary disease exacerbation. 2. Hyperglycemia. SECONDARY DIAGNOSES: 1. Hypertension. 2. Obstructive sleep apnea, not able to tolerate CPAP, on 2 L nasal cannula at night. 3. History of coronary artery disease with history of myocardial infarction x2. 4. Vll-innbsqk-vqlnqsepz type 2 diabetes. 5. Status post pacemaker for tachybrady syndrome. 6. Atrial fibrillation, on Eliquis. 7. Benign prostatic hypertrophy. DISCHARGE MEDICATIONS: 1. Cardizem 240 mg p.o. daily. 2. Aspirin 81 mg p.o. daily. 3. Eliquis 5 mg p.o. b.i.d. 4. Glipizide 5 mg p.o. b.i.d. 5. Spiriva 1 cap INH daily. 6. Symbicort 80/4.5 two puffs INH b.i.d. 7. Nitroglycerin 0.4 mg sublingual q.5 minutes p.r.n. 8. Magnesium oxide 800 mg p.o. daily. 9. Ferrous sulfate 325 mg p.o. b.i.d. 10. Atorvastatin 60 mg p.o. daily. 11. Omeprazole 20 mg p.o. b.i.d. 12. Metoprolol XL 50 mg p.o. b.i.d. 13. Proscar 5 mg p.o. daily. New medications: 1. Azithromycin 250 mg p.o. x4 days. 2. Prednisone 40 mg p.o. daily x5 days. HISTORY OF PRESENT ILLNESS AND HOSPITAL COURSE: Please see history and physical by Jacey Oliver NP, for full admission details but in summary, this is a 72-year-old male with a past medical history of COPD, who presented to the emergency department on 06/26/18 with complaints of shortness of breath and cough, admitted to the hospitalist service for COPD exacerbation. The patient reported low-grade fever of 100.5 at home, productive cough with green yellow increased sputum production and reported some nausea, vomiting, diarrhea at home the day prior. The patient presented with a leukocytosis of 16.4. He was initially treated with IV Solu- Medrol, ceftriaxone, and azithromycin. His antibiotics were narrowed to just azithromycin. The patient initially had a mild temperature of 99.6. Otherwise, throughout hospitalization, he remained afebrile. He remained hemodynamically stable throughout hospitalization. The next day, the patient asking for discharge to home and has reported that he feels "much, much better." Denying shortness of breath. Reporting mild cough now with clear sputum. The patient denies wheezing. Blood cultures with no growth as well as no growth in the urine culture. Chest x-ray on admission showing impression: Stigmata of chronic obstructive pulmonary disease. No acute cardiopulmonary process evident. As well, the patient was admitted with hyperglycemia, which was treated with insulin throughout his hospitalization. The next day, the patient was asking for discharge to home. It is noted that he has a leukocytosis now of 20,000; however, this is suspected to be secondary to IV steroids. The patient reports that he is at his baseline and has been ambulating around the unit all day off oxygen and reporting he is at his baseline. The patient clinically appears to be doing very well. His is at the bedside and agrees that he is at his baseline. The patient was ambulated and pulse oximetry was monitored with exertion, remaining to be greater than 94% on room air. The patient is noted to be somewhat of a poor historian and is not able to relay what most of his medications are and/or why he takes the medications. His med list was discussed with him and his . He initially stated that he ran out of diuretics and needed a short-term prescription from myself, the hospitalist; however, then the patient remembered that he was just given a prescription, therefore this was not needed. REVIEW OF SYSTEMS: A 14-point review of systems was performed. All the pertinent positives and negatives are mentioned up above. The patient offers no complaints at this time. PHYSICAL EXAMINATION: Vital Signs: Temperature 97.6, heart rate 75, respirations 18, pulse oximetry 97% on room air, blood pressure 139/75. General Appearance: A 72-year-old male, well developed, alert and oriented x3, in no acute distress. HEENT: Head is normocephalic, atraumatic. Pupils are equal and reactive to light. Oropharynx is clear. Moist mucous membranes. Neck is supple. Cardiac: S1, S2. Regular rate and rhythm. Lungs: Clear to auscultation bilaterally. Good aeration throughout. No rhonchi, wheezes, rales noted. Abdomen: Soft, nontender, nondistended. Normal bowel sounds throughout. Extremities: Moves all extremities. Strength is 5/5 throughout. Neuro: Alert and oriented x3. Gait is steady. No focal deficits noted. DISCHARGE PLAN: 1. Follow up with primary care provider, Dr. Alonso, within 1 week. 2. The patient was instructed to return to the emergency department with any worsening or concerning symptoms. The patient is stable for discharge to home. TIME SPENT: Approximately 60 minutes were spent on this discharge. ROSALIA WHYTE NP [id number]/[facility] #: [id number] [facility]
== END 2018-06-27 16:00 | disposition home or self-care (01) ==
LOC: ED 09:28 → MED 16:14
PROVIDERS: ADMIT Internal Medicine; ATTEND Internal Medicine
DX: J44.1 Chronic obstructive pulmonary disease with (acute) exacerbation (principal); E11.65 Type 2 diabetes mellitus with hyperglycemia; I10 Essential (primary) hypertension; Z95.0 Presence of cardiac pacemaker; G47.33 Obstructive sleep apnea (adult) (pediatric); I25.10 Atherosclerotic heart disease of native coronary artery without angina pectoris; R06.02 Shortness of breath; R07.9 Chest pain, unspecified; R11.2 Nausea with vomiting, unspecified; R19.7 Diarrhea, unspecified; R50.9 Fever, unspecified; Z79.01 Long term (current) use of anticoagulants; Z87.891 Personal history of nicotine dependence; R30.0 Dysuria; N40.0 Benign prostatic hyperplasia without lower urinary tract symptoms; Z79.82 Long term (current) use of aspirin
CPT/HCPCS: 36415; 71045; 80048; 80053; 81003; 81015; 82947; 83605; 84484; 85025; 85610; 85730; 87040; 87086; 93005; 94640; 96365; 99284; A9270-GY; G0378; J0456; J0696; J2930; J7512